=== PATIENT | female | born 1980 | race Caucasian/White ===

== ENCOUNTER 2018-07-06 16:23 | Emergency (ER) | payer MEDICAID, SELFPAY ==
[2018-07-06 16:33] VITALS: BP 142/89; PULSE 87; RESP 16; TEMP 36.8; O2SAT 97
--- NOTE | 2018-07-06 17:43 | W.ED.GENAD ---
Discharge Plan Disposition Patient Disposition: HOME Condition: Good Discharge Details Chief Complaint: EyeProblem Clinical Impression: Hordeolum externum of right upper eyelid Primary Care Provider: America Enrique ED Provider: Chris Driver Home Meds and New Rx's Prescriptions: Continue folic acid 1 MG tablet 1 mg PO DAILY RF: 0 lamotrigine 150 MG tablet 200 mg PO .QAM RF: 0 topiramate 100 MG tablet 100 mg PO DAILY RF: 0 quetiapine [Seroquel XR] 300 MG tablet extended release 24 hr 600 mg PO HS RF: 0 albuterol sulfate 8.5 GM HFA aerosol inhaler 2 puff Inhalation Q4H PRN Qty: 1 RF: 0 fluticasone [Flovent HFA] 120 PUFF HFA aerosol inhaler 2 puff Inhalation BID RF: 0 biotin 5 MG capsule 1 cap PO DAILY RF: 0 cholecalciferol (vitamin D3) 5,000 UNIT tablet 1 tab PO DAILY RF: 0 loratadine 10 MG tablet 10 mg PO DAILY RF: 0 omeprazole magnesium [Prilosec OTC] 20 MG tablet,delayed release (DR/EC) 20 mg PO DAILY PRNRF: 0 acetaminophen [Mapap Extra Strength] 500 MG tablet 2 tab-cap PO RF: 0 lamotrigine [Lamictal] 100 MG tablet 100 mg PO HS RF: 0 Qt-Z3-urx-wwai-knx-bqhf-bor 1 EACH tablet 1 ea PO DAILY RF: 0 qaxiwgmh-eid-okrd-FA-lutein [Centrum Silver Women] 1 EACH tablet 1 ea PO DAILY RF: 0 Discharge Instructions Instructions: Shaylee (ED) Additional Instructions: Feel free to return to the emergency department for any new or worsening symptoms otherwise apply warm compresses 4-6 times a day and she may use Visine eyedrops to see if this helps with any irritation to the eye. If not improving over the next week please follow-up with ophthalmology. Referrals: [facility] [Outside] - 1 week (if not improving) Discharge Data Discharge Date/Time-TO BE ENTERED AT DEPARTURE: 07/06/18 18:14 Medical Decision Making Patient presenting to the emergency department for discomfort of the right eye. Patient states this morning she started having some redness, swelling, and discomfort and was concerned for possible conjunctivitis due to people she has been around having similar symptoms. Physical exam shows a erythematous right upper eyelid with slight lateral pustule otherwise conjunctival, sclera, and remaining portion of the eye exam is unremarkable. Given more localized findings to the right upper lid with external pustule and concern for stye which patient states that she has a history of. Patient was encouraged to use warm compresses and use Visine eyedrops for any itching or irritation to the eye and to follow-up with ophthalmology if not improving over the next 1-2 weeks. After discussion of diagnosis and plan of care patient is no further needs, questions, or concerns and states clear understanding to return to the emergency department for any worsening symptoms. HPI General Date/Time Provider Initiated Documentation: 07/06/18 16:50. Limitations to Documentation: no limitations. Information obtained by: patient and RN notes reviewed. History of Present Illness 38 year old F presents to the emergency department with the chief complaint of right eye pain, described as moderate, Quality is described as burning (itching), and is localized to the eyes and right. Patient reports no radiation. Patient started experiencing this day(s) (1) and it has been constant. No relieving factors improve symptom(s), No exacerbating factors reported . Patient notes no other symptoms.. Patient did receive the following treatments prior to arrival, none Related Data Home Medications Medication Instructions Recorded Confirmed quetiapine [Seroquel XR] 600 mg PO HS 10/15/13 07/06/18 topiramate 100 mg PO DAILY 10/15/13 07/06/18 albuterol sulfate 2 puff INHALATION Q4H PRN #1 07/09/14 07/06/18 [email or web address] biotin 1 cap PO DAILY 04/27/15 07/06/18 cholecalciferol (vitamin D3) 1 tab PO DAILY 04/27/15 07/06/18 fluticasone [Flovent HFA] 2 puff INHALATION BID 04/27/15 07/06/18 loratadine 10 mg PO DAILY 04/27/15 07/06/18 omeprazole magnesium [Prilosec OTC] 20 mg PO DAILY PRN 04/27/15 07/06/18 acetaminophen [Mapap Extra 2 tab-cap PO 11/17/15 11/17/15 Strength] Gl-J9-tes-nhox-pgs-fpfz-bor 1 ea PO DAILY 03/03/18 03/04/18 folic acid 1 mg PO DAILY tab-cap 03/03/18 07/06/18 lamotrigine 200 mg PO .QAM tab-cap 03/03/18 07/06/18 lamotrigine [Lamictal] 100 mg PO HS 03/03/18 07/06/18 swzxkvfa-zeb-bdtw-FA-lutein 1 ea PO DAILY 03/03/18 07/06/18 [Centrum Silver Women] Previous Rx's Medication Instructions Recorded albuterol sulfate 2 puff INHALATION Q4H PRN #1 07/09/14 [email or web address] Allergies Allergy/AdvReac Type Severity Reaction Status Date / Time Penicillins Allergy Severe Anaphylaxsis, Unverified 07/06/18 16:37 throat tightness divalproex sodium Allergy Intermediate Unverified 07/06/18 16:37 [From Depakote] latex Allergy Unverified 07/06/18 16:37 aspirin AdvReac Severe increases Unverified 07/06/18 16:37 toxicity combined w/ lithium ibuprofen AdvReac Severe increases Unverified 07/06/18 16:37 toxicity combined w/ lithium General Stated Complaint: EyeProblem DENNIS: 4 Review of Systems Constitutional Denies chills, Denies fever(s) and Denies headache(s) Eyes Reports as per HPI, Denies blurry vision, Denies change in vision, Reports eye discharge, Reports itchy eyes, Reports loss of vision and Denies photophobia ENT Denies headache(s), Reports nasal congestion, Denies nasal discharge and Reports sore throat Respiratory Denies cough and Denies wheezing Neurologic Denies headache(s), Denies focal weakness, Reports loss of vision and Denies other visual disturbances Allergic/Immunologic Reports itchy eyes and Denies wheezing PFSH Social History Smoking/Tobacco Use Status: Former Tobacco Use Exam Const General: cooperative, comfortable and no acute distress Orientation: alert, awake and oriented x3 HENMT Head: normal to inspection, normocephalic and atraumatic Ears: hearing grossly normal bilaterally, external ears normal and TM's normal bilaterally General nose exam: external nose normal Face and sinus: normal facial exam Mouth: oral mucosae normal Throat: posterior oropharynx normal Eyes Eyelids: eyelid abnormality right upper eyelid erythema, swelling and tenderness Conjunctivae: conjunctivae normal Sclera: sclerae normal Cornea: corneas normal Pupils: PERRL and normal by confrontation Eyes/upper lids images: 1. Area of redness and mild erythema Resp Effort & Inspection: normal respiratory effort, able to speak in complete sentences and no audible wheezes Neuro General: alert, awake, oriented x3, gait normal, tone normal, moves all extremities and no focal motor deficits Course Vital Signs Temperature 36.8 C 07/06/18 16:33 Pulse 87 07/06/18 16:33 Respiratory Rate 16 07/06/18 16:33 Blood Pressure 142/89 H 07/06/18 16:33 Pulse Oximetry 97 07/06/18 16:33 Temperature 36.8 C 07/06/18 16:33 Temperature Source Skin 07/06/18 16:33 Pulse 87 07/06/18 16:33 Respiratory Rate 16 07/06/18 16:33 Respiratory Effort Non-Labored 07/06/18 16:35 Blood Pressure 142/89 H 07/06/18 16:33 Pulse Oximetry 97 07/06/18 16:33 Pain Level 5 07/06/18 16:33
== END 2018-07-06 18:14 | disposition home or self-care (01) ==
PROVIDERS: Emergency Provider Nurse Practitioner Family; PCP Nurse Practitioner Family
DX: H00.11 Chalazion right upper eyelid (principal)
CPT/HCPCS: 99282

== ENCOUNTER 2019-05-20 14:11 | Outpatient (REF) | payer MEDICAID, SELFPAY ==
[2019-05-20 18:59] LABS: HCT 39.4 % (36.0-46.0); HGB 13.2 g/dL (12.0-15.5); Mean Corp. HGB Concentration 33.5 g/dL (32.0-36.0); Mean Corpuscular Hemoglobin 29.3 pg (27.0-33.0); Mean Corpuscular Volume 87.4 fL (80-95); Mean Platelet Volume 10.4 fL (8.0-11.0); Platelet Count 316 x1000/uL (130-400); RBC 4.51 m/cumm (4.00-5.20); RBC Distribution Width 13.3 % (11.7-14.6)
[2019-05-20 19:36] LABS: Ferritin 306 ng/mL (8-388); Vitamin B12 592 pg/mL (193-986)
[2019-05-20 20:36] LABS: ESR 25 mm/hr (0-20)
[2019-05-23 08:14] LABS: Vitamin D 25 Total 31.9 ng/ml (30-100)
== END 2019-05-20 14:31 ==
LOC: NCHCN 14:11
PROVIDERS: PCP Nurse Practitioner Family; Visit Provider Nurse Practitioner Family
DX: R42 Dizziness and giddiness (principal); R51 Headache; G47.61 Periodic limb movement disorder; F31.9 Bipolar disorder, unspecified
CPT/HCPCS: 82306; 85027; 85652; 82607; 82728

== ENCOUNTER 2019-07-22 13:43 | Outpatient (REF) | payer MEDICAID, SELFPAY ==
--- NOTE | 2019-07-22 13:30 | PAPFT_PTH ---
PATIENT: Janet Fontaine [facility] U#:[id number] AGE/SX: 39/F ROOM: RE07/22/[address]: Iván Youngblood : 1980 BED: DIS: 07/22/2019 SPEC #: [id number] RECD: 07/22/19 17:50 STATUS: ELIAS REQ #: [id number] HEMA: 07/22/19 13:[address]: Iván Youngblood DEPT: [facility], [facility] Cytology RECD BY: Rachel Galan Tissues: 1 - CX/ENDOCX FOR PAP SMEARS Procedures: PAP THIN PREP/UVM Screening HPV DNA PROBE Comments: [id number]
[2019-07-22 18:37] LABS: HCT 39.3 % (36.0-46.0); HGB 13.1 g/dL (12.0-15.5); Mean Corp. HGB Concentration 33.3 g/dL (32.0-36.0); Mean Corpuscular Hemoglobin 29.2 pg (27.0-33.0); Mean Corpuscular Volume 87.7 fL (80-95); Mean Platelet Volume 10.5 fL (8.0-11.0); Platelet Count 349 x1000/uL (130-400); RBC 4.48 m/cumm (4.00-5.20); RBC Distribution Width 13.2 % (11.7-14.6); White Blood Cell Count 10.01 k/cumm (4.4-10.8)
[2019-07-22 19:01] LABS: ALT 25 U/L (14-59); AST 16 U/L (15-37); Albumin 4.2 g/dL (3.4-5.0); Alkaline Phosphatase 66 U/L (46-116); Anion Gap 13.6 mmol/L (3-11); BUN 12 mg/dL (7-18); Bilirubin, Total 0.3 mg/dL (0.2-1.0); CO2 24.4 mmol/L (21.0-32.0); CREATININE 0.86 mg/dL (0.55-1.02); Calcium 9.1 mg/dL (8.5-10.1); Chloride 104 mmol/L (98-107); Glucose 92 mg/dL (70-100); Potassium 4.1 mmol/L (3.5-5.1); Sodium 142 mmol/L (136-145); Total Protein 7.5 g/dL (6.4-8.2)
[2019-07-25 11:36] LABS: Hepatitis C Ab w Rflx HCV PCR Negative (NEGAT)
[2019-07-25 12:33] LABS: Hepatitis B Surface Ag Negative (NEGAT)
[2019-07-25 12:39] LABS: HBs Antibody, Quant 931.9 mIU/mL; Hepatitis B Surface Ab Positive
[2019-07-25 12:48] LABS: HIV-1/2 Ag & Ab Screen Negative (NEGAT)
[2019-07-25 13:18] LABS: Syphilis Serology (RPR) Negative (Negative)
[2019-07-26 07:15] LABS: Chlamydia Result Negative; GC Result Negative
== END 2019-07-22 14:03 ==
LOC: NCHCN 13:43
PROVIDERS: PCP Nurse Practitioner Family; Visit Provider Nurse Practitioner Family
DX: Z20.2 Contact with and (suspected) exposure to infections with a predominantly sexual mode of transmission (principal); Z11.59 Encounter for screening for other viral diseases; Z11.4 Encounter for screening for human immunodeficiency virus [HIV]; Z11.3 Encounter for screening for infections with a predominantly sexual mode of transmission; Z12.4 Encounter for screening for malignant neoplasm of cervix
CPT/HCPCS: 80053; 85027; 86706; 86803; 87340; 87389; 87491; 87591; 88142; 86592; 87624

== ENCOUNTER 2020-01-06 11:20 | Outpatient (REF) | payer MEDICAID, SELFPAY ==
[2020-01-06 18:05] LABS: PTT Activated 26.7 sec (21.0-31.4); Prothrombin Time 10.2 sec (9.3-11.0)
[2020-01-06 18:17] LABS: ALT 33 U/L (14-59); AST 26 U/L (15-37); Albumin 3.9 g/dL (3.4-5.0); Alkaline Phosphatase 51 U/L (46-116); Anion Gap 9.5 mmol/L (3-11); BUN 14 mg/dL (7-18); Bilirubin, Total 0.3 mg/dL (0.2-1.0); CO2 27.5 mmol/L (21.0-32.0); CREATININE 0.84 mg/dL (0.55-1.02); Calcium 9.2 mg/dL (8.5-10.1); Chloride 105 mmol/L (98-107); Glucose 81 mg/dL (74-106); Potassium 4.4 mmol/L (3.5-5.1); Sodium 142 mmol/L (136-145); TSH (W/Ref FT4) 1.95 uIU/mL (0.36-3.74); Total Protein 6.9 g/dL (6.4-8.2)
[2020-01-06 18:39] LABS: D-Dimer 1698 ng/mlFEU (<500)
[2020-01-06 18:42] LABS: PROTEIN 8.3 mg/dL
[2020-01-06 18:43] LABS: Prot/Crea Ur Ratio 0.15
[2020-01-06 18:44] LABS: COMMENT (LAB VIEW ONLY) 52.79 mg/dL; Microalb ug/mg Crea 18.2 ug/mg Cr
== END 2020-01-06 11:40 ==
LOC: NCHCN 11:20
PROVIDERS: PCP Nurse Practitioner Family; Visit Provider Nurse Practitioner Family
DX: R60.9 Edema, unspecified (principal)
CPT/HCPCS: 80053; 82043; 82565; 82570; 84156; 84443; 85379; 85610; 85730

== ENCOUNTER 2020-01-06 19:54 | Emergency (ER) | payer MEDICAID, SELFPAY ==
[2020-01-06 19:59] VITALS: BP 157/95; PULSE 101; RESP 16; TEMP 37.1
--- NOTE | 2020-01-06 20:12 | ED.GENADUL_ITS ---
Discharge Plan Disposition Patient Disposition: HOME Condition: Stable Discharge Details Chief Complaint: GenMedical Clinical Impression: Leg pain Primary Care Provider: Iván Youngblood ED Provider: Rafy Alvarado Home Meds and New Rx's Prescriptions: Continued folic acid 1 MG tablet 1 mg PO DAILY RF: 0 topiramate 100 MG tablet 100 mg PO DAILY RF: 0 quetiapine [Seroquel XR] 300 MG tablet extended release 24 hr 600 mg PO HS RF: 0 albuterol sulfate 8.5 GM HFA aerosol inhaler 2 puff Inhalation Q4H PRN Qty: 1 RF: 0 fluticasone propionate [Flovent HFA] 120 PUFF HFA aerosol inhaler 2 puff Inhalation BID RF: 0 biotin 5 MG capsule 1 cap PO DAILY RF: 0 cholecalciferol (vitamin D3) 5,000 UNIT tablet 1 tab PO DAILY RF: 0 loratadine 10 MG tablet 10 mg PO DAILY RF: 0 omeprazole magnesium [Prilosec OTC] 20 MG tablet,delayed release (DR/EC) 20 mg PO DAILY PRNRF: 0 acetaminophen [Mapap Extra Strength] 500 MG tablet 2 tab-cap PO RF: 0 Vt-C8-ncg-eney-orf-ogqk-bor 1 EACH tablet 1 ea PO DAILY RF: 0 hxxiyqnw-fwp-vfsq-FA-lutein [Centrum Silver Women] 1 EACH tablet 1 ea PO DAILY RF: 0 Discharge Instructions Additional Instructions: your d dimer was elevated so you are empirically being treated for a blood clot in your legs follow up with your primary care provider Thursday to discuss if you need to continue lovenox. if you have significant shortness of breath or severe chest pain return to the emergency department Medical Decision Making 39 yo female comes in with bilateral leg pain. She saw her pcp today for pain in both calfs and had labs ordered and her d dimer was over 1500. They could not arrange for an u/s in time before they left for the weekend and no pharmacy had the proper dosing of her lovenox and she has too high of a weight to be safely on noacs so was sent here for initial lovenox. She has pain in both calfs without redness, mild swelling of the ankles with full rom. Denies any chest pain or shortness of breath to suggest PE. Will give initial dose of lovenox here and arrange for her to have dose tomorrow and Thursday in infusion room and will also have her f/u with u/s on Thursday and pcp. Return precautions given Differential Diagnosis Differential Diagnosis: dvt, lymphedema HPI General Mode of arrival: ambulatory . Date/Time Provider Initiated Documentation: 01/06/20 20:03 . Limitations to Documentation: no limitations . Information obtained by: patient . History of Present Illness 39 year old F presents to the emergency department with the chief complaint of leg pain, described as moderate, Quality is described as aching, and it has been constant. No relieving factors improve symptom(s), No exacerbating factors reported . Patient did receive the following treatments prior to arrival, none Related Data Home Medications Medication Instructions Recorded Confirmed quetiapine [Seroquel XR] 600 mg PO HS 10/15/13 07/06/18 topiramate 100 mg PO DAILY 10/15/13 07/06/18 albuterol sulfate 2 puff INHALATION Q4H PRN #1 07/09/14 07/06/18 [email or web address] biotin 1 cap PO DAILY 04/27/15 07/06/18 cholecalciferol (vitamin D3) 1 tab PO DAILY 04/27/15 07/06/18 fluticasone propionate [Flovent 2 puff INHALATION BID 04/27/15 07/06/18 HFA] loratadine 10 mg PO DAILY 04/27/15 07/06/18 omeprazole magnesium [Prilosec OTC] 20 mg PO DAILY PRN 04/27/15 07/06/18 acetaminophen [Mapap Extra 2 tab-cap PO 11/17/15 11/17/15 Strength] Kw-B6-wgx-ryso-aly-wfxw-bor 1 ea PO DAILY 03/03/18 03/04/18 folic acid 1 mg PO DAILY tab-cap 03/03/18 07/06/18 rjrfqktz-lzj-ufbw-FA-lutein 1 ea PO DAILY 03/03/18 07/06/18 [Centrum Silver Women] Previous Rx's Medication Instructions Recorded albuterol sulfate 2 puff INHALATION Q4H PRN #1 07/09/14 [email or web address] Allergies Allergy/AdvReac Type Severity Reaction Status Date / Time Penicillins Allergy Severe Anaphylaxsis, Unverified 01/06/20 20:03 throat tightness divalproex sodium Allergy Intermediate Unverified 01/06/20 20:03 [From Depakote] latex Allergy Unverified 01/06/20 20:03 aspirin AdvReac Severe increases Unverified 01/06/20 20:03 toxicity combined w/ lithium ibuprofen AdvReac Severe increases Unverified 01/06/20 20:03 toxicity combined w/ lithium General Stated Complaint: GenMedical DENNIS: 4 Review of Systems All systems reviewed & are unremarkable except as noted in HPI and below Constitutional Constitutional: Denies chills, Denies fever(s) and Denies weakness Cardiovascular Cardiovascular: Denies chest pain and Denies dyspnea Respiratory Respiratory: Denies cough and Denies dyspnea Gastrointestinal Gastrointestinal: Denies abdominal pain, Denies nausea and Denies vomiting Musculoskeletal Musculoskeletal: Denies joint swelling Neurologic Neurologic: Denies weakness Psychiatric Psychiatric: Denies depression [facility] Social History Smoking/Tobacco Use Status: Former Tobacco Use Drug use: Never Do you feel safe in your relationship?: Yes Exam Const General: no acute distress Orientation: alert HENMT Head: normal to inspection Ears: external ears normal General nose exam: external nose normal Mouth: moist mucous membranes Eyes General: appearance normal, both eyes and all related structures Neck Neck: normal visual inspection Resp Effort & Inspection: normal respiratory effort and able to speak in complete sentences Cardio Rate: regular rate Skin General skin exam: no rashes or lesions noted Neuro General: patient alert and patient oriented x3 Extrem General: full ROM and capillary refill normal Psych Mental Status: mental status grossly normal Course Vital Signs Vital signs: Vital Signs Temperature 37.1 C 01/06/20 19:59 Pulse 101 H 01/06/20 19:59 Respiratory Rate 16 01/06/20 19:59 Blood Pressure 157/95 H 01/06/20 19:59 Temperature 37.1 C 01/06/20 19:59 Temperature Source Temporal Artery Scan 01/06/20 19:59 Pulse 101 H 01/06/20 19:59 Respiratory Rate 16 01/06/20 19:59 Blood Pressure 157/95 H 01/06/20 19:59 Blood Pressure Position Supine 01/06/20 19:59 Oxygen Delivery Method Room Air 01/06/20 19:59 Oxygen Flow Rate 0 01/06/20 19:59
[2020-01-06] MEDS: Enoxaparin 60 MG/0.6 ML SYR SC (20:30)
== END 2020-01-06 20:41 | disposition home or self-care (01) ==
PROVIDERS: Emergency Provider Emergency Medicine; PCP Nurse Practitioner Family
DX: M79.604 Pain in right leg (principal); M79.605 Pain in left leg; R79.1 Abnormal coagulation profile
CPT/HCPCS: 96372; 99284; J1650

== ENCOUNTER 2020-01-07 18:01 | Outpatient (RCR) | payer MEDICAID, SELFPAY ==
[2020-01-07] MEDS: Enoxaparin 40 MG/0.4 ML SYR SC (18:38)
== END 2020-01-10 23:59 | disposition home or self-care (01) ==
LOC: NCHCN 18:01
PROVIDERS: PCP Nurse Practitioner Family; Visit Provider Nurse Practitioner Family
DX: R69 Illness, unspecified (principal)
CPT/HCPCS: 96372; J1650

== ENCOUNTER 2020-01-08 07:36 | Outpatient (RCR) | payer MEDICAID, SELFPAY ==
[2020-01-07] MEDS: Enoxaparin 40 MG/0.4 ML SYR SC (18:05)
[2020-01-08] MEDS: Enoxaparin 100 MG/ML SYR 190 MG SC (18:02)
== END 2020-01-10 23:59 | disposition home or self-care (01) ==
LOC: INF 07:36
PROVIDERS: PCP Nurse Practitioner Family; Visit Provider Emergency Medicine
DX: R79.1 Abnormal coagulation profile (principal); M79.604 Pain in right leg; M79.605 Pain in left leg
CPT/HCPCS: 96372; J1650

== ENCOUNTER 2020-01-09 09:03 | Outpatient (CLI) | payer MEDICAID, SELFPAY ==
--- NOTE | 2020-01-09 | DI.US_ITS ---
EXAM: US EXTREMITY VENOUS BI CLINICAL HISTORY: LEG PAIN, ELEVATED D DIMER. TECHNIQUE: Bilateral lower extremity venous ultrasound performed using grayscale, color-flow, and sp ectral Doppler analysis. COMPARISON: No exams were available for comparison FINDINGS: The bilateral common femoral, femoral and popliteal veins demonstrate normal compressibility, augment ation, and color Doppler. The posterior tibial veins are patent. No superficial venous thrombosis or Garcia's cyst is seen. IMPRESSION: Right: Negative for DVT Left: Negative for DVT DATA REPOSITORY:
== END 2020-01-09 09:23 ==
PROVIDERS: PCP Nurse Practitioner Family; Visit Provider Emergency Medicine
DX: M79.604 Pain in right leg (principal); M79.605 Pain in left leg
CPT/HCPCS: 93970

== ENCOUNTER 2020-07-09 17:25 | Emergency (ER) | payer MEDICAID, SELFPAY ==
[2020-07-09 17:43] VITALS: BP 146/100; PULSE 97; RESP 16; TEMP 36.5; O2SAT 97
--- NOTE | 2020-07-09 18:45 | RT.EKG_ITS ---
APPROVED REPORT Exam: Resting ECG Patient Location: E HR:82 bpm ECG Measurements Heart Rate 82 AXIS TX 159 P 48 QRSd 85 QRS 10 QT 376 T 17 QTc 439 Conclusion Sinus rhythm...normal P axis, V-rate 60- 99
--- NOTE | 2020-07-09 18:45 | DI.CT_ITS ---
EXAM: CT BRAIN NECK CTA CLINICAL HISTORY: dizziness, pain, ?dissection. TECHNIQUE: Imaging Protocol: Axial CT angiography was performed with multi-slice acquisition and mu lti-planar and/or 3D reconstructions. CONTRAST MATERIAL: Intravenous: Omnipaque 350 Contrast volume:85 ml COMPARISON: No exams were available for comparison FINDINGS: CT Head W/O: Ventricles and Extra axial spaces: Normal in size and morphology for the patient's age. Hemorrhage: None. Cerebral parenchyma: Normal. Midline shift: None. Brainstem/Cerebellum: Normal. Calvarium: Normal. Visualized Paranasal sinuses/Mastoids: Clear. Soft Tissues: Unremarkable. CTA Brain W: Internal Carotid Arteries: Petrous: Normal. Cavernous: Normal. Cerebral: Normal. Middle Cerebral Arteries: Right: No aneurysm, occlusion or significant stenosis. Left: No aneurysm, occlusion or significant stenosis. Anterior Cerebral Arteries: Right: No aneurysm, occlusion or significant stenosis. Left: No aneurysm, occlusion or significant stenosis. Posterior cerebral Arteries: Right: No aneurysm, occlusion or significant stenosis. Left: No aneurysm, occlusion or significant stenosis. Vertebral Arteries: Right: No aneurysm, occlusion or significant stenosis. Left: No aneurysm, occlusion or significant stenosis. Basilar Artery: No aneurysm, occlusion or significant stenosis. CTA Neck W: Common Carotid: Right: No aneurysm, occlusion or significant stenosis. Left: No aneurysm, occlusion or significant stenosis. External Carotid: Right: No aneurysm, occlusion or significant stenosis. Left: No aneurysm, occlusion or significant stenosis. Internal Carotid: Right: No aneurysm, occlusion or significant stenosis. Left: No aneurysm, occlusion or significant stenosis. Vertebral Artery: Right: No aneurysm, occlusion or significant stenosis. Left: No aneurysm, occlusion or significant stenosis. Lung Apices: Normal. Bones: Normal. Soft Tissues: Normal. IMPRESSION: 1. Normal CTA examination of the [place]. 2. Unremarkable noncontrast CT Head. 3. Normal CTA examination of the neck. RADIATION DOSE DELIVERED: 1,220.19mGy.cm Total DLP DATA REPOSITORY: All CT scans at this facility are submitted to the National Radiology Data Registry (NRDR) Dose Index Registry (DIR) with the [employer] (A[employer]). RADIATION OPTIMIZATION: All CT scans at this facility use at least one of these dose optimization te chniques: automated exposure control; mA and/or kV adjustment per patient size (includes targeted exa ms where dose is matched to clinical indication); or iterative reconstruction.
--- NOTE | 2020-07-09 18:52 | ED.GENADUL_ITS ---
Discharge Plan Disposition Patient Disposition: HOME Condition: Stable Discharge Details Clinical Impression: Otitis externa of right ear, Vertigo Primary Care Provider: Iván Youngblood ED Provider: Rafy Alvarado Home Meds and New Rx's Prescriptions: New scopolamine base 1 mg over 3 days patch 3 day 1 patch transdermal Q72H PRN (Reason: nausea and vomiting) Qty: 24 RF: 0 lorazepam 1 mg tablet 1 mg PO TID PRNQty: 30 RF: 0 ofloxacin 0.3 % drops 10 drp otic (ear) Q12H 7 Days Qty: 5 RF: 0 No Action folic acid 1 MG tablet 1 mg PO DAILY RF: 0 topiramate 100 MG tablet 100 mg PO DAILY RF: 0 quetiapine [Seroquel XR] 300 MG tablet extended release 24 hr 600 mg PO HS RF: 0 albuterol sulfate 8.5 GM HFA aerosol inhaler 2 puff Inhalation Q4H PRN Qty: 1 RF: 0 Flovent HFA 120 PUFF HFA aerosol inhaler 2 puff Inhalation BID RF: 0 biotin 5 MG capsule 1 cap PO DAILY RF: 0 cholecalciferol (vitamin D3) 5,000 UNIT tablet 1 tab PO DAILY RF: 0 loratadine 10 MG tablet 10 mg PO DAILY RF: 0 omeprazole magnesium [Prilosec OTC] 20 MG tablet,delayed release (DR/EC) 20 mg PO DAILY PRNRF: 0 acetaminophen [Mapap Extra Strength] 500 MG tablet 2 tab-cap PO RF: 0 [id number]-yutg-txh-qtin-bor 1 EACH tablet 1 ea PO DAILY RF: 0 Centrum Silver Women 1 EACH tablet 1 ea PO DAILY RF: 0 benztropine 2 mg tablet 2 mg PO DAILY RF: 0 Discharge Instructions Instructions: Otitis Externa (ED), Vertigo (ED) Additional Instructions: follow up with your primary care provider within 1 week if you take the meclizine and 2 hours later still feel significant dizziness take 1 ativan (lorazepam), do not drink alcohol or drive if you take this if you feel more ill, have worsening symptoms or persistent vomit return to the emergency department Medical Decision Making 40 yo female with hx of vertigo and has been on meclizine chronically and seen PT as well comes in with no relief from the meclizine for 3 days and constatn feeling of the rooms is spinning and worsens with head movement. No falls, no fevers.HAs a wooshing sound for a day in both ears but right greater than left and feels some swelling in the right jaw area. Has no palpable or visible swelling on exam, full rom of the mouth, normal oropharynx, no pain in the hyoid and full rom of the neck. Her tm's are normal as are external ears and mastoids, her right external auditory canal is red and bulging so could have otitis externa as a cause of her symptoms but given the wooshing sensation feel a cta to evaluate for dissection is warranted. She has stable gait, reassuring HINTS and no focal motor or sensation deficits so doubt central cva. No dyspnea, chest pain or pressure and no lightheadedness so doubt arrythmia, acs, pe. labs show no significant abnormality, mild leukocytosis to 13 but no infectious symptoms to suggest parachute taper infection and no swelling on exam still. Imaging unremarkable and she feels better with normal gait.Will d/c on abx drops and scopolamine patch and advised f/u with pcp and return precautions given Differential Diagnosis Differential Diagnosis: otitis externa, dissection, labrynthitis Imaging Data Radiologic Study: Attestation: I personally reviewed and interpreted this imaging study as follows: Imaging: CT Scan Radiologist's impression: no acute findings on imaging Lab Data Lab results reviewed: Yes I reviewed the patient's lab results. ECG Data Attestation: I personally reviewed and interpreted this ECG (s) as follows: Prior ECG tracings: not available for review Interpretation: sinus rhythm, rate 82, pr 159, no acute st t wave ischemic findings HPI General Mode of arrival: ambulatory . Date/Time Provider Initiated Documentation: 07/09/20 18:31 . Limitations to Documentation: no limitations . Information obtained by: patient . History of Present Illness 40 year old F presents to the emergency department with the chief complaint of dizziness, described as moderate, and it has been constant. No relieving factors improve symptom(s), No exacerbating factors reported . Patient did receive the following treatments prior to arrival, none Related Data Home Medications Medication Instructions Recorded Confirmed quetiapine [Seroquel XR] 600 mg PO HS 10/15/13 07/09/20 topiramate 100 mg PO DAILY 10/15/13 07/09/20 albuterol sulfate 2 puff INHALATION Q4H PRN #1 07/09/14 07/09/20 [email or web address] Flovent HFA 2 puff INHALATION BID 04/27/15 07/09/20 biotin 1 cap PO DAILY 04/27/15 07/09/20 cholecalciferol (vitamin D3) 1 tab PO DAILY 04/27/15 07/09/20 loratadine 10 mg PO DAILY 04/27/15 07/09/20 omeprazole magnesium [Prilosec OTC] 20 mg PO DAILY PRN 04/27/15 07/09/20 acetaminophen [Mapap Extra 2 tab-cap PO 11/17/15 11/17/15 Strength] [id number]-qkxc-bor 1 ea PO DAILY 03/03/18 07/09/20 Centrum Silver Women 1 ea PO DAILY 03/03/18 07/09/20 folic acid 1 mg PO DAILY tab-cap 03/03/18 07/09/20 benztropine 2 mg PO DAILY 07/09/20 07/09/20 lorazepam 1 mg PO TID PRN #30 tab 07/09/20 ofloxacin 10 drp OTIC (EAR) Q12H 7 Days #5 ml 07/09/20 scopolamine base 1 patch TRANSDERMAL Q72H PRN #24 ea 07/09/20 Previous Rx's Medication Instructions Recorded albuterol sulfate 2 puff INHALATION Q4H PRN #1 07/09/14 [email or web address] lorazepam 1 mg PO TID PRN #30 tab 07/09/20 ofloxacin 10 drp OTIC (EAR) Q12H 7 Days #5 ml 07/09/20 scopolamine base 1 patch TRANSDERMAL Q72H PRN #24 ea 07/09/20 Allergies Allergy/AdvReac Type Severity Reaction Status Date / Time Penicillins Allergy Severe Anaphylaxsis, Unverified 07/09/20 17:47 throat tightness divalproex sodium Allergy Intermediate Unverified 07/09/20 17:47 [From Depakote] latex Allergy Unverified 07/09/20 17:47 aspirin AdvReac Severe increases Unverified 07/09/20 17:47 toxicity combined w/ lithium ibuprofen AdvReac Severe increases Unverified 07/09/20 17:47 toxicity combined w/ lithium General Stated Complaint: Dizzy/Sync DENNIS: 3 Review of Systems All systems reviewed & are unremarkable except as noted in HPI and below Constitutional Constitutional: Denies chills, Denies fever(s) and Denies weakness Cardiovascular Cardiovascular: Denies chest pain and Denies dyspnea Respiratory Respiratory: Denies cough and Denies dyspnea Gastrointestinal Gastrointestinal: Denies abdominal pain, Denies nausea and Denies vomiting Musculoskeletal Musculoskeletal: Denies joint swelling Neurologic Neurologic: Denies weakness Psychiatric Psychiatric: Denies depression REPLACED BY [facility] Social History Smoking/Tobacco Use Status: Former Tobacco Use Alcohol Intake: never Drug use: Occasionally Substance use type: marijuana Do you feel safe in your relationship?: Yes Exam Const General: no acute distress Orientation: alert HENMT Head: normal to inspection Ears: external ears normal General nose exam: external nose normal Mouth: moist mucous membranes Eyes General: appearance normal, both eyes and all related structures Neck Neck: normal visual inspection Resp Effort & Inspection: normal respiratory effort and able to speak in complete sentences Cardio Rate: regular rate Skin General skin exam: no rashes or lesions noted Neuro General: patient alert and patient oriented x3 Extrem General: normal to inspection Psych Mental Status: mental status grossly normal Course Vital Signs Vital signs: Vital Signs Temperature 36.5 C 07/09/20 17:43 Pulse 97 H 07/09/20 17:43 Respiratory Rate 16 07/09/20 17:43 Blood Pressure 146/100 H 07/09/20 17:43 Pulse Oximetry 97 07/09/20 17:43 Temperature 36.5 C 07/09/20 17:43 Temperature Source Skin 07/09/20 17:43 Pulse 97 H 07/09/20 17:43 Respiratory Rate 16 07/09/20 17:43 Respiratory Effort Non-Labored 07/09/20 18:22 Respiratory Depth Normal 07/09/20 18:22 Respiratory Pattern Normal 07/09/20 18:22 Blood Pressure 146/100 H 07/09/20 17:43 Blood Pressure Position Sitting 07/09/20 17:43 Pulse Oximetry 97 07/09/20 17:43 Oxygen Delivery Method Room Air 07/09/20 17:43 Oxygen Flow Rate 0 07/09/20 17:43 Pain Level 6 07/09/20 17:43
[2020-07-09] MEDS: LORazepam 2 MG/ML VIAL 1 MG IVP (19:15)
[2020-07-09 19:19] LABS: Abs Immature Grans 0.06 10^3/uL (0.0-0.06); Absolute Basophil Count 0.13 10^3/uL (0.0-0.2); Absolute Lymphocyte Count 3.11 10^3/uL (1.2-3.4); Absolute Monocyte Count 0.94 10^3/uL (0.1-0.8); Eosinophils % 4.6; HCT 40.7 % (36.0-46.0); HGB 13.4 g/dL (11.2-15.7); Immature Grans % 0.5; Lymphocytes % 23.6; MCHC 32.9 % (32.0-36.0); MCV 88.1 fL (80-95); Monocytes % 7.1; Neutrophils % 63.2; Nucleated RBC 0 %; Platelet Count 346 10^3/uL (130-400); RBC 4.62 10^6/uL (3.93-5.22); RDW 12.8 % (11.7-14.6); RDW-SD 41.1 fL; WBC 13.18 10^3/uL (4.4-10.8)
[2020-07-09 19:21] LABS: Absolute Eosinophil Count 0.61 10^3/uL (0.0-0.7); Absolute Neutrophil Count 8.33 10^3/uL (1.2-6.7)
[2020-07-09] MEDS: Scopolamine 1 MG/3 DAYS PATCH TD (19:22)
[2020-07-09 19:31] VITALS: BP 117/80; PULSE 85; RESP 16; TEMP 36.7; O2SAT 96
[2020-07-09 19:32] LABS: ALT 27 U/L (14-59); AST 16 U/L (15-37); Albumin 4.2 g/dL (3.4-5.0); Alkaline Phosphatase 59 U/L (46-116); Anion Gap 10.4 mmol/L (3-11); BUN 15 mg/dL (7-18); Bilirubin, Total 0.4 mg/dL (0.2-1.0); CO2 24.6 mmol/L (21.0-32.0); CREATININE 1.03 mg/dL (0.55-1.02); Calcium 9.8 mg/dL (8.5-10.1); Chloride 102 mmol/L (98-107); Estimated GFR 59.97 (mL/min/1.73m2); Glucose 88 mg/dL (74-106); Magnesium 1.9 mg/dL (1.8-2.4); Potassium 3.8 mmol/L (3.5-5.1); Sodium 137 mmol/L (136-145); Total Protein 7.9 g/dL (6.4-8.2)
[2020-07-09 19:33] LABS: INR 1.1 (0.9-1.1); PTT Activated 26.7 sec (21.0-31.4); Prothrombin Time 10.6 sec (9.3-11.0)
--- NOTE | 2020-07-09 20:02 | DI.VRAD_ITS ---
PROCEDURE INFORMATION: Exam: CT Angiography Head With Contrast Exam date and time: 07/09/2020 7:38 PM Age: 40 years old Clinical indication: Dizziness and giddiness, pain, ?dissection; Dizziness for a few weeks with swooshing sound in ear after bending over, today right-sided jaw pain, tightness ,and swelling behind ear and in head. TECHNIQUE: Imaging protocol: Computed tomography angiography of the head with intravenous contrast. 3D rendering (Not supervised by radiologist): MIP and/or 3D reconstructed images were created by the technologist. Radiation optimization: All CT scans at this facility use at least one of these dose optimization techniques: automated exposure control; mA and/or kV adjustment per patient size (includes targeted exams where dose is matched to clinical indication); or iterative reconstruction. Contrast material: OMNIPAQUE 350; Contrast volume: 85 ml; Contrast route: INTRAVENOUS (IV); COMPARISON: No relevant prior studies available. FINDINGS: ANTERIOR CIRCULATION: Right internal carotid artery: Unremarkable. Intracranial segment is patent with no significant stenosis. No aneurysm. Right middle cerebral artery: Unremarkable. No occlusion or significant stenosis. No aneurysm. Right anterior cerebral artery: Unremarkable. No occlusion or significant stenosis. No aneurysm. Left internal carotid artery: Unremarkable. Intracranial segment is patent with no significant stenosis. No aneurysm. Left middle cerebral artery: Unremarkable. No occlusion or significant stenosis. No aneurysm. Left anterior cerebral artery: Unremarkable. No occlusion or significant stenosis. No aneurysm. POSTERIOR CIRCULATION: Right vertebral artery: Unremarkable. No occlusion or significant stenosis. No aneurysm. Left vertebral artery: Unremarkable. No occlusion or significant stenosis. No aneurysm. Basilar artery: Unremarkable. No occlusion or significant stenosis. No aneurysm. Right posterior cerebral artery: Unremarkable. No occlusion or significant stenosis. No aneurysm. Left posterior cerebral artery: Unremarkable. No occlusion or significant stenosis. No aneurysm. Brain: No definite mass, mass effect, or midline shift. Cerebral ventricles: Normal. No ventriculomegaly. Bones/joints: Unremarkable. No acute fracture. Soft tissues: Unremarkable. IMPRESSION: 1. No acute intracranial findings on initial unenhanced images. 2. CTA head within normal limits. No arterial dissection. No large vessel occlusion. PROCEDURE INFORMATION: Exam: CT Angiography Neck With Contrast Exam date and time: 07/09/2020 7:38 PM Age: 40 years old Clinical indication: Dizziness and giddiness, pain, ?dissection; Dizziness for a few weeks with swooshing sound in ear after bending over, today right-sided jaw pain, tightness ,and swelling behind ear and in head. TECHNIQUE: Imaging protocol: Computed tomography angiography of the neck with intravenous contrast. 3D rendering (Not supervised by radiologist): MIP and/or 3D reconstructed images were created by the technologist. Radiation optimization: All CT scans at this facility use at least one of these dose optimization techniques: automated exposure control; mA and/or kV adjustment per patient size (includes targeted exams where dose is matched to clinical indication); or iterative reconstruction. Contrast material: OMNIPAQUE 350; Contrast volume: 85 ml; Contrast route: INTRAVENOUS (IV); COMPARISON: No relevant prior studies available. FINDINGS: Right common carotid artery: No stenosis. No dissection or occlusion. Right internal carotid artery: No stenosis of the extracranial segment. No dissection or occlusion. Right external carotid artery: No occlusion or stenosis of the origin. Right vertebral artery: No stenosis. No dissection or occlusion. Non-dominant right vertebral artery Left common carotid artery: No stenosis. No dissection or occlusion. Left internal carotid artery: No stenosis of the extracranial segment. No dissection or occlusion. Left external carotid artery: No occlusion or stenosis of the origin. Left vertebral artery: No stenosis. No dissection or occlusion. Dominant left vertebral artery. Bones/joints: No acute fracture. Soft tissues: Normal. No significant soft tissue swelling. IMPRESSION: CTA neck within normal limits. No arterial dissection, arterial occlusion, or arterial stenosis. REFERENCES: NASCET CRITERIA. The degree of internal carotid artery stenosis is based on NASCET criteria. Normal is no stenosis. Mild is less than 50% stenosis. Moderate is 50-69% stenosis. Severe is 70% to 99% stenosis. Total occlusion is no detectable patent lumen. Dictated and Authenticated by: Phillip Veras MD. Ordering:JAMES Hillman MD
--- NOTE | 2020-07-09 20:10 | NUR.NOTE ---
Nursing Note: Patient reports that the room is no longer spinning, does still have some nausea and dizziness. Dr Alvarado updated. Awaiting CT results.
[2020-07-09 20:45] VITALS: BP 134/86; PULSE 97; RESP 16; O2SAT 98
== END 2020-07-09 20:50 | disposition home or self-care (01) ==
PROVIDERS: Emergency Provider Emergency Medicine; PCP Nurse Practitioner Family
DX: H60.391 Other infective otitis externa, right ear (principal); R42 Dizziness and giddiness; R11.0 Nausea
CPT/HCPCS: 36415; 70496; 70498; 80053; 93005; 96374; 99285; 83735; 85025; 85610; 85730; 93010; 99284; J2060

== ENCOUNTER 2021-01-28 14:59 | Outpatient (CLI) | payer MEDICAID, SELFPAY ==
--- NOTE | 2021-01-28 14:43 | DI.RAD_ITS ---
EXAM: XR WRIST RT COMPLETE CLINICAL HISTORY: cyst. TECHNIQUE: 2D digital imaging was performed. COMPARISON: CR LEFT THUMB from 01/06/2018 FINDINGS: There is no evidence fracture nor carpal dislocation. There is negative ulnar variance, approximatel y 4 millimeters. Scapholunate distance is normal. Bone density and carpal row bones is normal. No abnormal soft tissue calcifications. No ominous osseous lesions. IMPRESSION: DATA REPOSITORY: RADIATION DOSE DELIVERED:
== END 2021-01-28 15:00 | disposition home or self-care (01) ==
LOC: DIORS 15:00
PROVIDERS: PCP Nurse Practitioner Family; Referring Provider Nurse Practitioner Family; Visit Provider Physician Assistant Surgical
DX: M67.431 Ganglion, right wrist (principal)
CPT/HCPCS: 73110

== ENCOUNTER 2021-02-15 04:42 | Outpatient (CLI) | payer MEDICAID, SELFPAY ==
--- NOTE | 2021-02-15 09:15 | DI.MRI_ITS ---
Exam(s) MR UPPER JOINT RT WO EXAM: MR UPPER JOINT RT WO CLINICAL HISTORY: PAIN, GANGLION CYST VOLAR ASPECT RT WRIST,M67.431 TECHNIQUE: Multiplanar multisequence MRI of the right wrist was performed. COMPARISON: CR XR WRIST RT COMPLETE from 01/28/2021 FINDINGS: MARROW:There is no evidence of fracture, bone contusion, nor avascular necrosis. No ominous osseous lesions. ARTICULATIONS: There are no erosions. There is an effusion in the radiocarpal joint and this is cont inuous with a lobulated volar ganglion cyst at this level which measures approximately 1.6 cm wide by 1.4 cm volar to the joint by 1.2 cm long to 2D normal. This extends between the flexor carpi radial is and flexor pollicis longus. This is external-lateral to the carpal tunnel. There is no abnormal signal in the carpal tunnel. There is a smaller amount of fluid on the opposite-medial aspect of the wrist adjacent to the ulnar s tyloid. Interposed between the ulnar styloid and triquetrum bone. There is mild negative ulnar vari ance. There is no abnormal fluid in the radioulnar joint. No significant degenerative changes at the 1st carpometacarpal joint. TENDONS: No evidence of tendon tears nor tenosynovitis. The above described ganglia on is medial to the abductor pollicis longus and extensor pollicis brevis tendons. CARPAL TUNNEL: No abnormal signal within the contents of the carpal tunnel including the flexor digit orum profundus and superficialis tendons and median nerve. IMPRESSION: 1. The main finding here is a lobulated ganglion cyst on the volar lateral aspect of the wrist measur ing approximately 16 x 14 x 12 millimeters, appearing to originate from the radiocarpal joint and ins inuating between the flexor carpi radialis and flexor pollicis longus tendons. 2. Is no evidence of fracture, bone contusion, nor avascular necrosis. DATA REPOSITORY:
== END 2021-02-15 05:02 ==
PROVIDERS: PCP Physician Assistant; Visit Provider Student in an Organized Health Care Education/Training Program
DX: M25.531 Pain in right wrist (principal); M67.431 Ganglion, right wrist
CPT/HCPCS: 73221

== ENCOUNTER 2021-05-04 20:20 | Emergency (ER) | payer MEDICAID, SELFPAY ==
[2021-05-04 20:27] VITALS: BP 123/86; PULSE 80; RESP 19; O2SAT 98
--- NOTE | 2021-05-04 20:30 | DI.RAD_ITS ---
Exam(s) XR FINGER LT INDEX EXAM: XR FINGER LT INDEX EXAM DATE/TIME: CLINICAL HISTORY: pain left index finger,sledgehammer. TECHNIQUE: 2D digital imaging was performed. COMPARISON: None. FINDINGS: BONES: No acute fracture is present. No bony destructive lesion is seen. JOINTS: No dislocation is present. SOFT TISSUE: Mild soft tissue swelling. No radiopaque foreign bodies. IMPRESSION: No evidence of acute fracture or dislocation. DATA REPOSITORY: RADIATION DOSE DELIVERED:
--- NOTE | 2021-05-04 20:51 | ED.GENADUL_ITS ---
Discharge Plan Disposition Patient Disposition: HOME Condition: Good Discharge Details Clinical Impression: Contusion of left index finger Primary Care Provider: Kalin Ramon ED Provider: Rachel Anguiano Home Meds and New Rx's Prescriptions: Continued montelukast 10 mg tablet 10 mg PO DAILY RF: 0 folic acid 1 MG tablet 1 mg PO DAILY RF: 0 quetiapine [Seroquel XR] 300 MG tablet extended release 24 hr 600 mg PO HS RF: 0 topiramate 100 mg tablet 100 mg PO BID RF: 0 albuterol sulfate 8.5 GM HFA aerosol inhaler 2 puff Inhalation Q4H PRN Qty: 1 RF: 0 Flovent HFA 120 PUFF HFA aerosol inhaler 2 puff Inhalation BID RF: 0 biotin 5 MG capsule 1 cap PO DAILY RF: 0 cholecalciferol (vitamin D3) 5,000 UNIT tablet 1 tab PO DAILY RF: 0 loratadine 10 MG tablet 10 mg PO DAILY RF: 0 omeprazole magnesium [Prilosec OTC] 20 MG tablet,delayed release (DR/EC) 20 mg PO DAILY PRNRF: 0 acetaminophen [Mapap Extra Strength] 500 MG tablet 2 tab-cap PO RF: 0 [id number]-[id number]-tuez-hvr-qmtb-bor 1 EACH tablet 1 ea PO DAILY RF: 0 Centrum Silver Women 1 EACH tablet 1 ea PO DAILY RF: 0 benztropine 2 mg tablet 2 mg PO DAILY RF: 0 scopolamine base 1 mg over 3 days patch 3 day 1 patch transdermal Q72H PRN (Reason: nausea and vomiting) Qty: 24 RF: 0 lorazepam 1 mg tablet 1 mg PO TID PRNQty: 30 RF: 0 Discharge Instructions Instructions: Contusion in Adults (ED) Additional Instructions: Repeat x-ray in 1 week if persistent pain There is no evidence of fracture on your x-ray Ibuprofen and Tylenol for pain control Stand Alone Forms: Work Release Discharge Data Discharge Date/Time-TO BE ENTERED AT DEPARTURE: 05/04/21 21:50 Medical Decision Making No evidence of fracture noted on x-ray per my review and radiology interpretation, patient instructed to use affected digit as tolerated Ibuprofen and Tylenol as needed for discomfort Repeat x-ray in 1 week with persistent pain Return precautions discussed and patient expressed understanding HPI General Mode of arrival: ambulatory . Date/Time Provider Initiated Documentation: 05/04/21 20:41 . Limitations to Documentation: no limitations . Information obtained by: patient . HPI Narrative: This 41-year-old female presents with injury to left second digit. States she was minding diamonds and accidentally hit her finger with a sledgehammer. This was 2 days ago. Denies chance of . Pain exacerbated with movement. Denies any sensation change. Otherwise reportedly healthy. Related Data Home Medications Medication Instructions Recorded Confirmed quetiapine [Seroquel XR] 600 mg PO HS 10/15/13 05/04/21 albuterol sulfate 2 puff INHALATION Q4H PRN #1 07/09/14 05/04/21 [email or web address] Flovent HFA 2 puff INHALATION BID 04/27/15 05/04/21 biotin 1 cap PO DAILY 04/27/15 05/04/21 cholecalciferol (vitamin D3) 1 tab PO DAILY 04/27/15 05/04/21 loratadine 10 mg PO DAILY 04/27/15 05/04/21 omeprazole magnesium [Prilosec OTC] 20 mg PO DAILY PRN 04/27/15 05/04/21 acetaminophen [Mapap Extra 2 tab-cap PO 11/17/15 11/17/15 Strength] [id number]-[id number]-ods-heal-bor 1 ea PO DAILY 03/03/18 07/09/20 Centrum Silver Women 1 ea PO DAILY 03/03/18 05/04/21 folic acid 1 mg PO DAILY tab-cap 03/03/18 05/04/21 benztropine 2 mg PO DAILY 07/09/20 05/04/21 lorazepam 1 mg PO TID PRN #30 tab 07/09/20 05/04/21 scopolamine base 1 patch TRANSDERMAL Q72H PRN #24 ea 07/09/20 05/04/21 montelukast 10 mg tablet 10 mg PO DAILY 01/28/21 05/04/21 topiramate 100 mg tablet 100 mg PO BID tab 01/28/21 05/04/21 Previous Rx's Medication Instructions Recorded albuterol sulfate 2 puff INHALATION Q4H PRN #1 07/09/14 [email or web address].ad lorazepam 1 mg PO TID PRN #30 tab 07/09/20 scopolamine base 1 patch TRANSDERMAL Q72H PRN #24 ea 07/09/20 Allergies Allergy/AdvReac Type Severity Reaction Status Date / Time Penicillins Allergy Severe Anaphylaxsis, Unverified 05/04/21 20:30 throat tightness divalproex sodium Allergy Intermediate Unverified 05/04/21 20:30 [From Depakote] latex Allergy Unverified 05/04/21 20:30 aspirin AdvReac Severe increases Unverified 05/04/21 20:30 toxicity combined w/ lithium ibuprofen AdvReac Severe increases Unverified 05/04/21 20:30 toxicity combined w/ lithium General Stated Complaint: Orthopedic DENNIS: 4 Review of Systems Narrative: Review of systems obtained x3 and negative aside from indication in HPI [facility] Social History Smoking/Tobacco Use Status: Former Tobacco Use Smoking risk assessment performed?: Yes Alcohol Intake: never Drug use: Occasionally Substance use type: marijuana Do you feel safe in your relationship?: Yes Exam Const General: no acute distress Extrem Other: Left second digit with bruising noted at proximal phalanx, mild tenderness to MCP and PIP joint, neurovascularly intact, no tenderness to wrist Course Vital Signs Vital signs: Vital Signs Pulse 80 05/04/21 20:27 Respiratory Rate 19 05/04/21 20:27 Blood Pressure 123/86 05/04/21 20:27 Pulse Oximetry 98 05/04/21 20:27 Pulse 80 05/04/21 20:27 Respiratory Rate 19 05/04/21 20:27 Blood Pressure 123/86 05/04/21 20:27 Blood Pressure Position Sitting 05/04/21 20:27 Pulse Oximetry 98 05/04/21 20:27 Oxygen Delivery Method Room Air 05/04/21 20:27 Oxygen Flow Rate 0 05/04/21 20:27
--- NOTE | 2021-05-04 21:40 | DI.VRAD_ITS ---
PROCEDURE INFORMATION: Exam: XR Left Finger(s) Exam date and time: 05/04/2021 8:42 PM Age: 41 years old Clinical indication: Injury or trauma; Other: Pain left index finger, sledgehammer; Blunt trauma (contusions or hematomas) TECHNIQUE: Imaging protocol: XR Left fingers. Views: Minimum 2 views. COMPARISON: CR LEFT THUMB 01/06/2018 10:39 AM FINDINGS: Bones/joints: No evidence of fracture. Negative for dislocation. Negative for focal bony lesion. Soft tissues: Soft tissue swelling noted. No evidence of foreign body. IMPRESSION: No acute osseous abnormality. Dictated and Authenticated by: Rafy Mccormick MD. Ordering:LATOSHA Ramos MD
== END 2021-05-04 21:50 | disposition home or self-care (01) ==
PROVIDERS: Emergency Provider Physician Assistant; PCP Physician Assistant
DX: S60.022A Contusion of left index finger without damage to nail, initial encounter (principal); W27.0XXA Contact with workbench tool, initial encounter
CPT/HCPCS: 99283; 73140

== ENCOUNTER 2021-05-14 06:14 | Day surgery (SDC) | payer MEDICAID, SELFPAY ==
[2021-05-14 06:20] VITALS: BP 108/72; PULSE 89; RESP 16; TEMP 36.5; O2SAT 98
--- NOTE | 2021-05-14 06:25 | ANES.PREOP_ITS ---
General Info Date of Service Date Performed: 05/14/21 Height: 5 ft 6 in Weight: 116.573 kg Body Mass Index (BMI): 41.4 Surgical Procedure: Operation Date: 05/14/21 07:40 Proposed Procedures Side Surgeon p Wrist Ganglion Cyst Excision Right Gt Castro MD Meds Allergies and Home Medications Allergies Allergy/AdvReac Type Severity Reaction Status Date / Time Penicillins Allergy Severe Anaphylaxsis, Verified 05/14/21 06:34 throat tightness divalproex sodium Allergy Intermediate Verified 05/14/21 06:34 [From Depakote] latex Allergy Verified 05/14/21 06:34 aspirin AdvReac Severe increases Verified 05/14/21 06:34 toxicity combined w/ lithium ibuprofen AdvReac Severe increases Verified 05/14/21 06:34 toxicity combined w/ lithium Home Medication Medication Instructions Recorded quetiapine [Seroquel XR] 600 mg PO HS 10/15/13 albuterol sulfate 2 puff INHALATION Q4H PRN #1 07/09/14 hfa.[email or web address] Flovent HFA 2 puff INHALATION BID 04/27/15 biotin 1 cap PO DAILY 04/27/15 cholecalciferol (vitamin D3) 1 tab PO DAILY 04/27/15 loratadine 10 mg PO DAILY 04/27/15 omeprazole magnesium [Prilosec OTC] 20 mg PO DAILY PRN 04/27/15 acetaminophen [Mapap Extra 2 tab-cap PO DAILY 11/17/15 Strength] [id number]-[id number]-ximm-vze-ntnj-bor 1 ea PO DAILY 03/03/18 Centrum Silver Women 1 ea PO DAILY 03/03/18 folic acid 1 mg PO DAILY tab-cap 03/03/18 benztropine 2 mg PO DAILY 07/09/20 lorazepam 1 mg PO TID PRN #30 tab 07/09/20 scopolamine base 1 patch TRANSDERMAL Q72H PRN #24 ea 07/09/20 montelukast 10 mg tablet 10 mg PO DAILY 01/28/21 topiramate 100 mg tablet 100 mg PO BID tab 01/28/21 Current Visit Medications: Current Medications Generic Name Dose Route Start Last Admin Trade Name Freq PRN Reason Stop Dose Admin Ringer's Solution 1,000 mls @ 80 mls/hr 05/14/21 06:00 IV 06/12/21 23:59 INFUSION MARIA L Clindamycin Phosphate/Dextrose 900 mg in 50 mls @ 50 mls/hr 05/14/21 06:00 Cleocin In D5w IVPB 05/14/21 18:00 PREOP MARIA L IV Miscellaneous Supplies 1 each 05/14/21 06:00 Iv Access IV 06/12/21 23:59 DIRECTED MARIA L Sodium Chloride 0 ml 05/14/21 06:00 Normal Saline Flush 10 Ml Syr IV 06/12/21 23:59 PRN PRN Sodium Chloride 0 ml 05/14/21 06:00 Normal Saline 10 Ml Vial IJ 06/12/21 23:59 DIRECTED PRN Sterile Water 0 ml 05/14/21 06:00 Water,Injection,Sterile 10 Ml Vial IJ 06/12/21 23:59 DIRECTED PRN PFSH Active Problems Active Problems: Problem Status Onset Code Ganglion cyst of volar aspect of right wrist M67.431 Contusion of left index finger S60.022A Medical History Medical History Asthma Environmental allergies Surgical History Surgical History Hx of tubal ligation Tobacco Smoking/Tobacco Use Status: Former Tobacco Use Alcohol Alcohol Intake: never Substance Use Substance use: Occasionally Substance use type: marijuana Vital Signs and Lab Results Lab Results Blood Type / Crossmatch: No Data to Display Complete Blood Count: No Data to Display Complete Metabolic Panel: No Data to Display Liver Function Panel: No Data to Display Coagulation Panel: No Data to Display Cardiac Panel: No Data to Display Arterial Blood Gas: No Data to Display Venous Blood Gas: No Data to Display Pancreas Panel: No Data to Display Thyroid Panel: No Data to Display Infectious Disease: No Data to Display Blood Cultures: No Data to Display Toxicology Panel: No Data to Display Panel: No Data to Display Imaging and Studies Imaging and Studies EKG Summary: 06/2020: normal sinus, normal P axis. CT Summary: CTA 06/2020 head/neck: normal CTA of [place] [facility] [place], normal head CT, normal neck CTA. Pulmonary Function Summary: 2015: mild obstructive airway dz with sig bronchodilator response. Anesthesia Assessment and Plan Anesthesia History Personal History: No History of Anesthesia Complications Family History: No Family History of Anesthesia Complications Exercise Tolerance Exercise Tolerance: Metabolic Equivalents>4 Cardiac & Pulmonary Exam Cardiac Exam: Normal S1/S2 Heart Sounds Pulmonary Exam: Clear Bilateral Breath Sounds Airway Exam Known Difficult Airway: No Mallampati Class: 1 Mouth Opening: Normal (> 3cm) Thyromental Distance: Greater than 3 cm Neck Range of Motion: Full ROM Neck Circumference: Thick Teeth Condition: Normal Dentition ASA Classification ASA Score: ASA 2 Emergency Case?: No NPO Status NPO Status: NPO Clears >2 hours, Solids >8 hours Status Status: Negative HCG Anesthesia Plan Resuscitation Status: Full Code Anesthesia Technique: MAC Anesthesia Airway Planned: Natural Airway Monitors Used: Standard Monitors Preoperative Comments:: Previous Mac 3 grade 1, easy mask.
[2021-05-14 07:03] VITALS: BMI 41.4
[2021-05-14] MEDS: Lactated Ringers 1,000 ML 80 ML IV (07:03)
--- NOTE | 2021-05-14 07:07 | W.ANESPOSTOP ---
Postoperative Evaluation Date, Time and Location Date Performed: 05/14/21 Time Performed: 09:11 Patient Location: Day Surgery Unit Vital Signs Most Recent Imported Vital Signs: Most Recent Vital Signs Temp Pulse Resp BP Pulse Ox 36.5 C 89 16 108/72 98 05/14/21 06:20 05/14/21 06:20 05/14/21 06:20 05/14/21 06:20 05/14/21 06:20 Most Recent Manually Entered Vital Signs: Adult Blood Pressure: 125/80 Heart Rate: 85 Respirations: 16 Oxygen Saturation (%): 96 Temperature (C): 36.7 C Pain Score (0-10 Scale): 3 Pain Score Most Recent Pain Score: Most Recent Pain Score Pain Level 0 05/14/21 06:20 Assessment Mental Status: Awake (Alert & Oriented to Patient Baseline) Airway and Respiratory Function: Patent airway with normal (patient baseline) respiratory exam Cardiovascular Function: Hemodynamically Stable Hydration Status: Adequately Hydrated Nausea & Vomiting: No Nausea or Vomiting Pain: Pt. Denies Any Pain Peripheral Nerve Block: Patient did not receive a nerve block
--- NOTE | 2021-05-14 07:19 | PDOC.DSDIS_ITS ---
Discharge Plan Disposition Patient Disposition: HOME Condition: Good Discharge Details Reason For Visit: Right Volar Wrist Ganglion Cyst Attending Provider: Gt Castro Primary Care Provider: Kalin Ramon Home Meds and New Rx's Prescriptions: New acetaminophen 500 mg tablet 500 mg PO Q6H PRN PRN (Reason: pain) Qty: 60 RF: 3 hydrocodone-acetaminophen 5-325 mg tablet 1 tab PO Q6H PRN (Reason: pain) Qty: 6 RF: 0 Continued montelukast 10 mg tablet 10 mg PO DAILY RF: 0 folic acid 1 MG tablet 1 mg PO DAILY RF: 0 quetiapine [Seroquel XR] 300 MG tablet extended release 24 hr 600 mg PO HS RF: 0 topiramate 100 mg tablet 100 mg PO BID RF: 0 albuterol sulfate 8.5 GM HFA aerosol inhaler 2 puff Inhalation Q4H PRN Qty: 1 RF: 0 Flovent HFA 120 PUFF HFA aerosol inhaler 2 puff Inhalation BID RF: 0 biotin 5 MG capsule 1 cap PO DAILY RF: 0 cholecalciferol (vitamin D3) 5,000 UNIT tablet 1 tab PO DAILY RF: 0 loratadine 10 MG tablet 10 mg PO DAILY RF: 0 omeprazole magnesium [Prilosec OTC] 20 MG tablet,delayed release (DR/EC) 20 mg PO DAILY PRNRF: 0 [id number]-[id number]-[id number]-ehjl-zwk-ufun-bor 1 EACH tablet 1 ea PO DAILY RF: 0 Centrum Silver Women 1 EACH tablet 1 ea PO DAILY RF: 0 benztropine 2 mg tablet 2 mg PO DAILY RF: 0 scopolamine base 1 mg over 3 days patch 3 day 1 patch transdermal Q72H PRN (Reason: nausea and vomiting) Qty: 24 RF: 0 lorazepam 1 mg tablet 1 mg PO TID PRNQty: 30 RF: 0 Discontinued acetaminophen [Mapap Extra Strength] 500 MG tablet 2 tab-cap PO DAILY RF: 0 Discharge Instructions Additional Instructions: Wrist Discharge Instructions Activity: You should keep the hand/wrist elevated as much as possible for the first few days. You may use the other fingers as tolerated but avoid trying to do too much too soon. You may perform light activities with the splint in place. Dressing/Cast: Your splint should stay in place at all times. Do NOT get it wet. You may loosen the JOHN wrap if you feel it is too tight and then rewrap more loosely. Medications: - You should take Tylenol for baseline pain control. - You have been prescribed a stronger pain medication, Hydrocodone, for breakthrough pain. - You may apply ice over the wrist, just double bag so it doesn't get wet. Follow-up: 10-14 days Referrals: Gt Castro MD [ [facility] STAFF PHYSICIAN] - Equipment/Supplies: Splint and Sling Activity:: Elevate Remove Dressings/Wound Care:: Do Not Remove Shower/Bathe:: Cover Diet:: As Tolerated Discharge Orders Discharge Orders: Discharge Order (Routine); Ordered 05/14/21 Ordered By: Gt Castro DS: Diagnosis Discharge Diagnosis (1) Ganglion cyst of volar aspect of right wrist: Status: Acute
[2021-05-14] MEDS: CLINDAMYCIN 900 MG/50 ML BAG 50 MG IVPB (07:28)
[2021-05-14] MEDS: Sodium Bicarbonate 50 MEQ/50 ML VIAL (07:48)
[2021-05-14 08:11] VITALS: BP 105/73; PULSE 81; RESP 16; TEMP 36.5; O2SAT 98
[2021-05-14] MEDS: HYDROcodone 5/Acetaminophen 325 TAB PO (08:37)
[2021-05-14 08:39] VITALS: BP 125/80; PULSE 85; RESP 16; TEMP 36.7; O2SAT 96
[2021-05-14 09:12] VITALS: BP 125/80; PULSE 85; RESP 16; TEMPC 36.7; O2SAT 96
[2021-05-14 09:45] VITALS: BP 118/68; PULSE 77; RESP 16; TEMP 36.5; O2SAT 98
--- NOTE | 2021-05-14 12:29 | W.PM.OP ---
Date of service: 05/14/21 Time of Service: 08:01 Operative Note Operative Note DATE OF PROCEDURE: 05/14/21 PRE-OP DIAGNOSIS: Right Recurrent Volar Wrist Ganglion Cyst POST-OP DIAGNOSIS: same PROCEDURE: Excision of volar wrist ganglion cyst - Right wrist SURGEON: Gt Castro ANESTHESIA TYPE: General:No Airway Refer to Anesthesia Record ESTIMATED BLOOD LOSS: 5 PATHOLOGY: none sent TOURNIQUET TIME: 8 COMPLICATIONS: None Patient was transported to: PACU Patient's condition: stable Indications: Janet is a 41 year old who I have seen for a recurrent volar wrist ganglion cyst. It has continued to be bothersome despite some conservative options. Its size and interference with activities continues to cause problems. Therefore, I offered excision of the volar wrist cyst. I discussed the risks to include bleeding, infection, pain, stiffness, damage to nerve and vessels, recurrence. Despite these risks, she elects to proceed. Findings: There was a ganglion cyst arising from volar wrist and lateral to the FCR tendon. The cyst was removed and the origin from the wrist was debrided and opened. Procedure Description: Janet was greeted in the preoperative holding area. Identity was confirmed and the correct site was identified and marked. Consent was reviewed the patient and signed. History and physical was updated. The patient to take not to the operating room placed in supine position. All bony prominences were well-padded. A nonsterile tourniquet was placed high up onto the right arm. The arms and prepped with ChloraPrep and draped in a standard fashion. The surgical site was marked on the skin and injected with 1% lidocaine with epinephrine buffered with sodium bicarbonate. The limb was exsanguinated and the tourniquet was inflated to 250 mmHg where it stayed for 8 minutes. The skin was incised sharply. Deeper dissection was carried out with tenotomy scissors and careful attention to vascular branches in this area. The mass was identified and protected with dissection carried around. Once was fully identified it was deflated and the cyst stalk was followed down to the carpus. The cyst structure was resected and its origin from the carpus was opened with tenotomy scissors and rongeur. The wound was then thoroughly irrigated. The tourniquet was deflated. There is no major arterial bleeding in any other persistent ooze was cauterized with the bipolar electrocautery. The wound was dry. The deep layer was reapproximated with a 3-0 Vicryl. The skin was closed with a running 4-0 Monocryl followed by skin glue, gauze, and Ash wrap. The wrist was placed into a removable wrist brace. At the end the case all counts were correct. The patient was awakened from anesthesia and taken to the PACU in stable condition. There were no noted complications.
== END 2021-05-14 09:55 | disposition home or self-care (01) ==
PROVIDERS: PCP Physician Assistant; Visit Provider Student in an Organized Health Care Education/Training Program
PROC: (CPT 25112; principal; 2021-05-14 07:30)
DX: M67.431 Ganglion, right wrist (principal)
CPT/HCPCS: 25112; J2001; L3908

== ENCOUNTER 2022-09-18 12:07 | Outpatient (REF) | payer MEDICAID, SELFPAY ==
[2022-09-18 18:11] LABS: Abs Immature Grans 0.07 10^3/uL (0.0-0.06); Absolute Basophil Count 0.14 10^3/uL (0.0-0.2); Absolute Eosinophil Count 0.66 10^3/uL (0.0-0.7); Absolute Monocyte Count 0.92 10^3/uL (0.1-0.8); Eosinophils % 4.6; HCT 39.5 % (36.0-46.0); Immature Grans % 0.5; Lymphocytes % 18.3; MCH 28.3 pg (27.0-33.0); MCHC 32.9 % (32.0-36.0); MCV 86 fL (80-95); MPV 9.6 fL (8.0-11.0); Monocytes % 6.4; Neutrophils % 69.2; Platelet Count 394 10^3/uL (130-400); RBC 4.59 10^6/uL (3.93-5.22); RDW 13.1 % (11.7-14.6); RDW-SD 41.1 fL; WBC 14.35 10^3/uL (4.4-10.8)
[2022-09-18 18:12] LABS: Absolute Lymphocyte Count 2.63 10^3/uL (1.2-3.4); Absolute Neutrophil Count 9.93 10^3/uL (1.2-6.7)
[2022-09-18 18:23] LABS: ALT 26 U/L (14-59); AST 22 U/L (15-37); Albumin 4.2 g/dL (3.4-5.0); Alkaline Phosphatase 71 U/L (46-116); Anion Gap 11.9 mmol/L (3-11); BUN 17 mg/dL (7-18); Bilirubin, Total 0.2 mg/dL (0.2-1.0); CO2 24.1 mmol/L (21.0-32.0); Calcium 9.5 mg/dL (8.5-10.1); Chloride 105 mmol/L (98-107); Estimated GFR 73.04 (mL/min/1.73m2); Glucose 84 mg/dL (74-106); Potassium 4.4 mmol/L (3.5-5.1); Sodium 141 mmol/L (136-145); Total Protein 7.8 g/dL (6.4-8.2)
== END 2022-09-18 12:08 | disposition home or self-care (01) ==
LOC: NCHCN 12:07
PROVIDERS: PCP Physician Assistant; Visit Provider Nurse Practitioner Family
DX: R10.31 Right lower quadrant pain (principal); R31.9 Hematuria, unspecified; R30.0 Dysuria
CPT/HCPCS: 80053; 85025; 87086

== ENCOUNTER 2022-12-06 12:43 | Emergency (ER) | payer MEDICAID, SELFPAY ==
[2022-12-06] VITALS (19 sets, daily range): BP systolic 113–155; BP diastolic 63–87; PULSE 61–85; RESP 7–23; O2SAT 95–100
--- NOTE | 2022-12-06 12:45 | RT.EKG_ITS ---
APPROVED REPORT Exam: Resting ECG Reason for Exam: Left shoulder pain through side Patient Location: E HR:70 bpm ECG Measurements Heart Rate 70 AXIS MN 131 P 18 QRSd 88 QRS -1 QT 414 T 23 QTc 446 Conclusion Sinus rhythm Anterior infarct, old...Q >40mS, abnormal ST-T, V2-V5
--- NOTE | 2022-12-06 13:00 | DI.RAD_ITS ---
Exam(s) XR CHEST 2V PA LATERAL EXAM: XR CHEST 2V PA LATERAL CLINICAL HISTORY: L chest discomfort TECHNIQUE: 2D digital imaging was performed of the chest. Two images were obtained. PA and lateral views were obtained. COMPARISON: No exams were available for comparison FINDINGS: MEDIASTINUM: Normal. HEART: Normal. PULMONARY VASCULATURE: Normal. LUNGS: Clear. PLEURAL SPACE: No pleural effusion or pneumothorax. BONE:Within normal limits for the patient's age. OTHER FINDINGS:Normal. IMPRESSION: No acute pulmonary findings. DATA REPOSITORY: RADIATION DOSE DELIVERED:
--- NOTE | 2022-12-06 13:13 | ED.GENADUL_ITS ---
Discharge Plan Disposition Patient Disposition: Home Condition: Improving Discharge Details Clinical Impression: Strain of chest wall Primary Care Provider: Kalin Ramon ED Provider: Fletcher Vidal Home Meds and New Rx's Prescriptions: Continued montelukast 10 mg tablet 10 mg PO DAILY folic acid 1 MG tablet 1 mg PO DAILY quetiapine [Seroquel XR] 300 MG tablet extended release 24 hr 600 mg PO HS Patient Comments: 01.06.18 pt states she is taking 800mg @[facility].HE topiramate 100 mg tablet 100 mg PO BID albuterol sulfate 8.5 GM HFA aerosol inhaler 2 puff Inhalation Q4H PRN Qty: 1 0RF Flovent HFA 120 PUFF HFA aerosol inhaler 2 puff Inhalation BID biotin 5 MG capsule 1 cap PO DAILY cholecalciferol (vitamin D3) 5,000 UNIT tablet 1 tab PO DAILY loratadine 10 MG tablet 10 mg PO DAILY omeprazole magnesium [Prilosec OTC] 20 MG tablet,delayed release (DR/EC) 20 mg PO DAILY PRN acetaminophen 500 mg tablet 500 mg PO Q6H PRN PRN (Reason: pain) Qty: 60 3RF Centrum Silver Women 1 EACH tablet 1 ea PO DAILY benztropine 2 mg tablet 2 mg PO DAILY Patient Comments: TAKE ONE TABLET BY MOUTH EVERY EVENING scopolamine base 1 mg over 3 days patch 3 day 1 patch transdermal Q72H PRN (Reason: nausea and vomiting) Qty: 24 0RF lorazepam 1 mg tablet 1 mg PO TID PRNQty: 30 0RF hydroxyzine HCl 50 mg tablet 50 mg PO DAILY Patient Comments: TAKE ONE TO THREE TABLETS BY MOUTH AT BEDTIME budesonide-formoterol [Symbicort] 160-4.5 mcg/actuation HFA aerosol inhaler 2 puff INHALATION Patient Comments: INHALE ONE PUFF BY MOUTH TWICE A DAY - RINSE MOUTH AFTER USING lurasidone [Latuda] 80 mg tablet 80 mg PO DAILY Patient Comments: TAKE ONE TABLET BY MOUTH EVERY DAY WITH FOOD (AT LEAST 350 CALORIES) Discharge Instructions Instructions: Muscle Strain (ED) Additional Instructions: May apply warm compress to area to reduce discomfort. Tylenol and/or ibuprofen as needed for pain. Next dose of ibuprofen would be in 6 hours. Your work-up today including cardiac troponin, CT scan of the chest and screening laboratories was unremarkable. Your magnesium was slightly low and may be supplemented by increased dark leafy greens such as spinach & kale, avocados or cashews in your diet. Return to the emergency department for any acute concerns. Medical Decision Making 16-year-old female presents from home. She states that she has had a number of 4 rounds of COVID infection, most recently 2 weeks ago. Is had cough congestion associated with it. She now has 1 day of achy left shoulder pain. She will note that she works at a store requires physical movement but did not notice strain at work. She has not had a rash and denies persistent fever. She has had an ongoing cough and mild congestion. Vital signs are unremarkable. Patient is well-appearing, she does have some reproducible muscular pain on exam. Differential diagnosis is broad but would include bronchitis, pneumonitis, she has triple discomfort, ACS or PE. Patient had screening laboratories obtained in addition to EKG and chest x-ray. Chest x-ray is unremarkable. Laboratories reveal normal troponin, white blood cell count of 12, reassuring basic chemistries and slight hypomagnesemia of 1.7. Noted is elevated D-dimer of 1121. Therefore, patient referred for CT of the chest. CAT scan does not show any acute findings. No evidence of pulmonary emboli. Discussed findings with patient. She is stable for discharge to home and improving. Most consistent with muscular strain. She understands indications to seek reevaluation. HPI General Mode of arrival: ambulatory . Date/Time Provider Initiated Documentation: 12/06/22 12:53 . Limitations to Documentation: no limitations . Information obtained by: patient . History of Present Illness 42 year old F presents to the emergency department with the chief complaint of Left arm discomfort/ache in shoulder, described as mild, Quality is described as dull and constant, and is localized to the left and upper extremity. Patient reports no radiation. Patient started experiencing this hour(s) and it has been constant. No relieving factors improve symptom(s), No exacerbating factors reported . Patient notes other (Recent cough with diagnosis of COVID which is improving. Shortness of breath. Tightness in her chest and aching left shoulder.). Related Data Home Medications Medication Instructions Recorded Confirmed quetiapine 300 mg tablet,extended 600 mg PO HS 10/15/13 05/24/21 release 24 hr (Seroquel XR) albuterol sulfate 90 mcg/actuation 2 puff inhalation Q4H PRN ##1 07/09/14 12/06/22 aerosol inhaler biotin 5 mg capsule 1 cap PO DAILY 04/27/15 12/06/22 cholecalciferol (vitamin D3) 125 1 tab PO DAILY 04/27/15 12/06/22 mcg (5,000 unit) tablet fluticasone propionate 110 2 puff inhalation BID 04/27/15 05/24/21 mcg/actuation HFA aerosol inhaler (Flovent HFA) loratadine 10 mg tablet 10 mg PO DAILY 04/27/15 05/24/21 omeprazole magnesium 20 mg 20 mg PO DAILY PRN 04/27/15 05/24/21 tablet,delayed release (Prilosec OTC) folic acid 1 mg tablet 1 mg PO DAILY 03/03/18 12/06/22 multivit with 1 ea PO DAILY 03/03/18 12/06/22 dskvgojl-uhqv-XH-lutein 8 mg iron-400 mcg-300 mcg tablet (Centrum Silver Women) benztropine 2 mg tablet 2 mg PO DAILY 07/09/20 05/24/21 lorazepam 1 mg tablet 1 mg PO TID PRN #30 tabs 07/09/20 12/06/22 scopolamine base 1 mg over 3 days 1 patch transdermal Q72H PRN 07/09/20 12/06/22 transdermal patch nausea and vomiting #24 ea montelukast 10 mg tablet 10 mg PO DAILY 01/28/21 12/06/22 topiramate 100 mg tablet 100 mg PO BID 01/28/21 05/24/21 acetaminophen 500 mg tablet 500 mg PO Q6H PRN PRN pain #60 tabs 05/14/21 12/06/22 budesonide-formoterol HFA 160 2 puff inhalation 12/06/22 mcg-4.5 mcg/actuation aerosol inhaler (Symbicort) hydroxyzine HCl 50 mg tablet 50 mg PO DAILY 12/06/22 12/06/22 lurasidone 80 mg tablet (Latuda) 80 mg PO DAILY 12/06/22 12/06/22 Previous Rx's Medication Instructions Recorded albuterol sulfate 90 mcg/actuation 2 puff inhalation Q4H PRN ##1 07/09/14 aerosol inhaler lorazepam 1 mg tablet 1 mg PO TID PRN #30 tabs 07/09/20 scopolamine base 1 mg over 3 days 1 patch transdermal Q72H PRN 07/09/20 transdermal patch nausea and vomiting #24 ea acetaminophen 500 mg tablet 500 mg PO Q6H PRN PRN pain #60 tabs 05/14/21 Allergies Allergy/AdvReac Type Severity Reaction Status Date / Time Penicillins Allergy Severe Anaphylaxsis, Verified 12/06/22 12:53 throat tightness divalproex sodium Allergy Intermediate Verified 12/06/22 12:53 [From Depakote] hydrocodone [From Vicodin] Allergy Intermediate rash Verified 12/06/22 12:53 latex Allergy Verified 12/06/22 12:53 aspirin AdvReac Severe increases Verified 12/06/22 12:53 toxicity combined w/ lithium ibuprofen AdvReac Severe increases Verified 12/06/22 12:53 toxicity combined w/ lithium General Stated Complaint: Dizzy/Sync DENNIS: 3 Review of Systems Narrative: 8 systems were reviewed and otherwise negative PFSH All Active Problems (Updated 12/06/22 @ 15:18 by Fletcher Vidal MD) Strain of chest wall (Acute) Ganglion cyst of volar aspect of right wrist (Acute) S/P Excision: 05/14/2021 Contusion of left index finger (Acute) Medical History Asthma Bipolar 1 disorder (01/08/18) Depression (01/08/18) Environmental allergies Obesity (BMI 30.0-34.9) (01/08/18) Surgical History Hx of tubal ligation Social History Smoking/Tobacco Use Status: Former Tobacco Use Quit Date: 10/12/18 Smoking risk assessment performed?: Yes Alcohol Intake: never Drug use: Occasionally Substance use type: marijuana Do you feel safe at home: Yes Do you feel safe in your relationship?: Yes Exam Narrative Exam Narrative: GEN: awake, alert, oriented 3. Pleasant, well groomed, interactive. HEAD: Normocephalic, atraumatic ENT: Mucous membranes moist, oropharynx unremarkable, External ear exam unremarkable EYES: PERRL, EOMI NECK: Full ROM, no NELSON, no menigismus CHEST/RESP: Slight upper anterior chest tenderness to palpation, clear to auscultation bilateral, no wheeze/rhonchi/rales CARDIOVASCULAR: RRR, no murmur, rub yoni. 2+ Rad pulse bilateral ABDOMEN: Soft, nontender, no mass. +Bowel sounds EXT: Full ROM, no edema, no rash, left anterior shoulder tender to palpation, normal range of motion is preserved. Neuro: Grossly normal neurologic exam, conversant, interactive. Psych: Speech fluent, thoughts congruent, affect normal Course Vital Signs Vital signs: Vital Signs Pulse 74 12/06/22 12:50 Respiratory Rate 20 12/06/22 12:50 Blood Pressure 155/87 H 12/06/22 12:50 Pulse 74 12/06/22 12:50 Respiratory Rate 20 12/06/22 12:50 Respiratory Effort Normal 12/06/22 12:57 Blood Pressure 155/87 H 12/06/22 12:50 Blood Pressure Position Sitting 12/06/22 12:50 Oxygen Delivery Method Room Air 12/06/22 12:50 Oxygen Flow Rate 0 12/06/22 12:50 Pain Level 4 12/06/22 12:50
[2022-12-06 13:29] LABS: Abs Immature Grans 0.05 10^3/uL (0.0-0.06); Absolute Basophil Count 0.13 10^3/uL (0.0-0.2); Absolute Lymphocyte Count 2.89 10^3/uL (1.2-3.4); Absolute Neutrophil Count 8.23 10^3/uL (1.2-6.7); Eosinophils % 5.4; HCT 37.7 % (36.0-46.0); HGB 12.7 g/dL (11.2-15.7); Immature Grans % 0.4; Lymphocytes % 22.4; MCH 28.5 pg (27.0-33.0); MCHC 33.7 % (32.0-36.0); MCV 85 fL (80-95); MPV 9.6 fL (8.0-11.0); Neutrophils % 63.8; Platelet Count 303 10^3/uL (130-400); RBC 4.45 10^6/uL (3.93-5.22)
[2022-12-06] MEDS: Ketorolac 15 MG/ML VIAL IVP (13:30)
[2022-12-06] MEDS: Normal Saline 1,000 ML 150 ML IV (13:30)
[2022-12-06 13:51] LABS: ALT 23 U/L (14-59); AST 14 U/L (15-37); Albumin 4.1 g/dL (3.4-5.0); Alkaline Phosphatase 54 U/L (46-116); Anion Gap 9.5 mmol/L (3-11); BUN 12 mg/dL (7-18); Bilirubin, Total 0.5 mg/dL (0.2-1.0); CO2 25.5 mmol/L (21.0-32.0); Calcium 9.5 mg/dL (8.5-10.1); Chloride 104 mmol/L (98-107); Estimated GFR 73.04 (mL/min/1.73m2); Glucose 87 mg/dL (74-106); Magnesium 1.7 mg/dL (1.8-2.4); Potassium 3.6 mmol/L (3.5-5.1); Sodium 139 mmol/L (136-145); Total Protein 7.5 g/dL (6.4-8.2)
[2022-12-06 13:52] LABS: Troponin I < 50 ng/L (<or=60)
--- NOTE | 2022-12-06 14:00 | DI.CT_ITS ---
Exam(s) CT CHEST PE CTA EXAM: CT CHEST PE CTA CLINICAL HISTORY: L anterior pain, elev DDImer. TECHNIQUE: Imaging Protocol: Axial CT angiography was performed with multi-slice acquisition and mu lti-planar and/or 3D reconstructions. CONTRAST MATERIAL: Intravenous: Omnipaque 350 contrast volume:100 mL COMPARISON: CT CT BRAIN NECK CTA from 07/09/2020 FINDINGS: Tracheobronchial tree: Patent where visualized. Pulmonary parenchyma: No consolidation or dominant measurable mass. No architectural distortion. Pulmonary Arteries: No evidence of filling defect to suggest pulmonary emboli. Mediastinum and Myah: No dominant adenopathy or fluid collection. The esophagus is unremarkable. Visualized thyroid gland: Unremarkable. Pleura: No effusion or pneumothorax. Heart: The heart is not dilated. No coronary artery calcifications are seen. No pericardial effusion. Aorta: Thoracic aorta non-dilated. No evidence of dissection. Upper abdomen: Unremarkable. Soft tissues: Unremarkable. Bones: Within normal limits for the patient's age. IMPRESSION: No evidence of pulmonary embolism, thoracic aortic dissection or aneurysm. RADIATION DOSE DELIVERED: 503.22mGy.cm Total DLP DATA REPOSITORY: All CT scans at this facility are submitted to the National Radiology Data Registry (NRDR) Dose Index Registry (DIR) with the [employer] (ACR). RADIATION OPTIMIZATION: All CT scans at this facility use at least one of these dose optimization te chniques: automated exposure control; mA and/or kV adjustment per patient size (includes targeted exa ms where dose is matched to clinical indication); or iterative reconstruction.
[2022-12-06 14:05] LABS: D-Dimer 1121 ng/mlFEU (<500)
--- NOTE | 2022-12-06 14:16 | DI.VRAD_ITS ---
PROCEDURE INFORMATION: Exam: XR Chest Exam date and time: 12/06/2022 1:53 PM Age: 42 years old Clinical indication: Pain; Left-sided TECHNIQUE: Imaging protocol: Radiologic exam of the chest. Views: 2 views. COMPARISON: MR UPPER JOINT RT WO 02/15/2021 3:10 PM FINDINGS: Lungs: Unremarkable. No consolidation. Pleural spaces: No pleural effusion. No pneumothorax. Heart/Mediastinum: Unremarkable. No cardiomegaly. Bones/joints: No acute bone abnormality. IMPRESSION: No acute findings. Dictated and Authenticated by: Jesus Noyola MD. Ordering:CT Bynum MD
[2022-12-06] MEDS: Omnipaque 350 MG/ML 100 ML BTL IJ (14:38)
[2022-12-06] MEDS: Normal Saline - Diluent 50 ML VIAL IJ (14:38)
--- NOTE | 2022-12-06 15:15 | DI.VRAD_ITS ---
PROCEDURE INFORMATION: Exam: CTA Chest With Contrast Exam date and time: 12/06/2022 2:35 PM Age: 42 years old Clinical indication: Other: L anterior pain, elevated d dimer TECHNIQUE: Imaging protocol: Computed tomographic angiography of the chest with contrast. 3D rendering (Not supervised by radiologist): MIP and/or 3D reconstructed images were created by the technologist. Radiation optimization: All CT scans at this facility use at least one of these dose optimization techniques: automated exposure control; mA and/or kV adjustment per patient size (includes targeted exams where dose is matched to clinical indication); or iterative reconstruction. Contrast material: OMNIPAQUE 350; Contrast volume: 100 ml; Contrast route: INTRAVENOUS (IV); COMPARISON: CR XR CHEST 2V PA LATERAL 12/06/2022 1:53 PM FINDINGS: Pulmonary arteries: Unremarkable. No emboli. Aorta: No aortic aneurysm. Lungs: Unremarkable. No consolidation. No masses. Pleural spaces: Unremarkable. No pneumothorax. No pleural effusion. Heart: Unremarkable. No cardiomegaly. No pericardial effusion. Lymph nodes: Unremarkable. No enlarged lymph nodes. Bones/joints: Unremarkable. No acute fracture. Soft tissues: Unremarkable. IMPRESSION: No acute findings. Dictated and Authenticated by: Jesus Noyola MD. Ordering:CT Bynum MD
== END 2022-12-06 16:47 | disposition home or self-care (01) ==
PROVIDERS: Emergency Provider Emergency Medicine; PCP Physician Assistant
DX: S29.011A Strain of muscle and tendon of front wall of thorax, initial encounter (principal); J45.909 Unspecified asthma, uncomplicated; X58.XXXA Exposure to other specified factors, initial encounter; Y92.009 Unspecified place in unspecified non-institutional (private) residence as the place of occurrence of the external cause; Y99.8 Other external cause status
CPT/HCPCS: 71275; 80053; 93005; 96361; 96374; 99285; 71046; 83735; 84484; 85025; 85379; 93010; J1885; J3490

== ENCOUNTER 2023-05-12 00:28 | Outpatient (CLI) | payer MEDICAID, SELFPAY ==
--- NOTE | 2023-05-12 07:00 | DI.MRI_ITS ---
Exam(s) MR UPPER JOINT RT WO EXAM: MR UPPER JOINT RT WO CLINICAL HISTORY: cyst recurrence, ganglion cyst volar aspect rt wrist, M67.431. TECHNIQUE: Multiplanar multisequence MRI was performed. COMPARISON: None. FINDINGS: BONES: There is no fracture or contusion pattern. JOINTS: The radiocarpal joint shows small amount of fluid. The carpal joints are unremarkable. TENDONS: Flexors: Unremarkable. Extensors: Unremarkable. MUSCLES: Unremarkable. MEDIAN NERVE: Unremarkable on this noncontrast examination. SOFT TISSUES: Multiloculated ganglion cyst in same location as prior exam, at the volar, radial aspec t of the wrist. It is slightly smaller in size with approximate dimensions 14 millimeters transverse by 11 millimeters cephalo caudad by 11 millimeters AP. TRIANGULAR FIBROCARTILAGE: Unremarkable. IMPRESSION: Recurrence ganglion cyst, smaller in size than on the prior exam DATA REPOSITORY:
== END 2023-05-12 00:48 ==
LOC: DI 00:30
PROVIDERS: PCP Physician Assistant; Visit Provider Student in an Organized Health Care Education/Training Program
DX: M67.431 Ganglion, right wrist (principal)
CPT/HCPCS: 73221

== ENCOUNTER 2023-05-13 05:56 | Day surgery (SDC) | payer MEDICAID, SELFPAY ==
[2023-05-13 06:13] VITALS: BP 112/90; PULSE 76; RESP 16; TEMP 35.9; O2SAT 98
--- NOTE | 2023-05-13 06:59 | W.ANESPRE ---
General Info Date of Service Date Performed: 05/13/23 Height: 5 ft 6 in Weight: 109 kg Body Mass Index (BMI): 38.7 Surgical Procedure: Operation Date: 05/13/23 07:40 Proposed Procedure Side Surgeon p Wrist Cyst Excision Right Gt Castro MD Meds Allergies and Home Medications Allergies Allergy/AdvReac Type Severity Reaction Status Date / Time Penicillins Allergy Severe Anaphylaxsis, Verified 05/13/23 06:21 throat tightness divalproex sodium Allergy Intermediate Verified 05/13/23 06:21 [From Depakote] hydrocodone [From Vicodin] Allergy Intermediate rash Verified 05/13/23 06:21 latex Allergy Verified 05/13/23 06:21 aspirin AdvReac Severe increases Verified 05/13/23 06:21 toxicity combined w/ lithium ibuprofen AdvReac Severe increases Verified 05/13/23 06:21 toxicity combined w/ lithium Home Medication Medication Instructions Recorded albuterol sulfate 90 mcg/actuation 2 puff inhalation Q4H PRN ##1 07/09/14 aerosol inhaler biotin 5 mg capsule 1 cap PO DAILY 04/27/15 cholecalciferol (vitamin D3) 125 1 tab PO DAILY 04/27/15 mcg (5,000 unit) tablet loratadine 10 mg tablet 10 mg PO DAILY 04/27/15 folic acid 1 mg tablet 1 mg PO DAILY 03/03/18 rziabhwm-fhhz-hnbu 8 mg-folic 400 1 ea PO DAILY 03/03/18 mcg-K 50 mcg-lutein 300 mcg tablet (Centrum Silver Women) scopolamine base 1 mg over 3 days 1 patch transdermal Q72H PRN 07/09/20 transdermal patch nausea and vomiting #24 ea montelukast 10 mg tablet 10 mg PO DAILY 01/28/21 topiramate 100 mg tablet 100 mg PO BID 01/28/21 budesonide-formoterol HFA 160 2 puff inhalation DAILY 12/06/22 mcg-4.5 mcg/actuation aerosol inhaler (Symbicort) meclizine 25 mg tablet 25 mg PO TID PRN 03/12/23 trazodone 100 mg tablet 100 mg PO QHS PRN 03/12/23 lurasidone 120 mg tablet (Latuda) 80 mg PO QPM 04/28/23 acetaminophen 500 mg tablet 1,000 mg PO TID #90 tabs 05/13/23 hydrocodone 5 mg-acetaminophen 325 1 tab PO Q6H PRN pain #6 tabs 05/13/23 mg tablet Current Visit Medications: Current Medications Generic Name Dose Route Start Last Admin Trade Name Echo PRN Reason Stop Dose Admin Ringer's Solution 1,000 mls @ 80 mls/hr 05/13/23 06:00 IV 06/11/23 23:59 INFUSION MARIA L Cefazolin Sodium/Dextrose 2 gm in 50 mls @ 100 mls/hr 05/13/23 06:00 Ancef Duplex IVPB 05/13/23 16:00 PREOP MARIA L IV Miscellaneous Supplies 1 each 05/13/23 06:00 Iv Access IV 06/11/23 23:59 DIRECTED MARIA L Sodium Chloride 0 ml 05/13/23 06:00 Normal Saline Flush 10 Ml Syr IV 06/11/23 23:59 PRN PRN Sodium Chloride 0 ml 05/13/23 06:00 Normal Saline 10 Ml Vial IJ 06/11/23 23:59 DIRECTED PRN Sterile Water 0 ml 05/13/23 06:00 Water,Injection,Sterile 10 Ml Vial IJ 06/11/23 23:59 DIRECTED PRN PFSH Active Problems Active Problems: Problem Status Onset Code Ganglion cyst of volar aspect of right wrist M67.431 Contusion of left index finger S60.022A Medical History Medical History Asthma Bipolar 1 disorder (01/08/18) Depression (01/08/18) Environmental allergies Obesity (BMI 30.0-34.9) (01/08/18) Periodic limb movement disorder Tobacco use Surgical History Surgical History Hx of tubal ligation Tobacco Smoking/Tobacco Use Status: Former Tobacco Use Alcohol Alcohol Intake: current Alcohol intake frequency: holidays/special occasions only Substance Use Substance use: Occasionally Substance use type: marijuana Vital Signs and Lab Results Vital Signs Most Recent Vital Signs in EMR: Most Recent Vital Signs Temp Pulse Resp BP Pulse Ox 35.9 C L 76 16 112/90 98 05/13/23 06:13 05/13/23 06:13 05/13/23 06:13 05/13/23 06:13 05/13/23 06:13 Lab Results Blood Type / Crossmatch: No Data to Display Complete Blood Count: No Data to Display Complete Metabolic Panel: No Data to Display Liver Function Panel: No Data to Display Coagulation Panel: No Data to Display Cardiac Panel: No Data to Display Arterial Blood Gas: No Data to Display Venous Blood Gas: No Data to Display Pancreas Panel: No Data to Display Thyroid Panel: No Data to Display Infectious Disease: No Data to Display Blood Cultures: No Data to Display Toxicology Panel: No Data to Display Panel: No Data to Display Imaging and Studies Imaging and Studies Study information below may be from another EMR and interpreted by another provider. Please see original notes in EMR for more complete details. EKG Summary: 06/2020: normal sinus, normal P axis. CT Summary: CTA 06/2020 head/neck: normal [facility]A of [place] [facility], normal head CT, normal neck CTA. Pulmonary Function Summary: 2015: mild obstructive airway dz with sig bronchodilator response. Anesthesia Assessment and Plan Anesthesia History Personal History: No History of Anesthesia Complications Family History: No Family History of Anesthesia Complications Exercise Tolerance Exercise Tolerance: Metabolic Equivalents>4 Pertinent Negatives Pertinent Negatives: No Symptoms of GERD and No Major Cardiovascular Symptoms or Complaints Cardiac & Pulmonary Exam Cardiac Exam: Normal S1/S2 Heart Sounds Pulmonary Exam: Clear Bilateral Breath Sounds Implantable Cardiac Device Does patient have a Pacemaker or an ICD?: No Airway Exam Known Difficult Airway: No Mallampati Class: 1 Mouth Opening: Normal (> 3cm) Thyromental Distance: Greater than 3 cm Neck Range of Motion: Full ROM Neck Circumference: Thick Teeth Condition: Normal Dentition ASA Classification ASA Score: ASA 2 Emergency Case?: No NPO Status NPO Status: NPO Clears >2 hours, Solids >8 hours Status Status: Negative HCG Anesthesia Plan Resuscitation Status: Full Code Anesthesia Technique: General Anesthesia Airway Planned: Natural Airway Monitors Used: Standard Monitors
[2023-05-13 07:02] VITALS: BMI 38.7
[2023-05-13] MEDS: Lactated Ringers 1,000 ML 80 ML IV (07:03)
--- NOTE | 2023-05-13 07:15 | PDOC.DSDIS_ITS ---
Date of service: 05/13/23 Time of Service: 07:15 Discharge Plan Disposition Patient Disposition: Home Condition: Good Discharge Details Reason For Visit: Excision cyst R wrist Attending Provider: Gt Castro Primary Care Provider: Kalin Ramon Home Meds and New Rx's Prescriptions: New acetaminophen 500 mg tablet 1,000 mg PO TID Qty: 90 0RF tramadol 50 mg tablet 50 mg PO Q8H PRNQty: 10 0RF Continued montelukast 10 mg tablet 10 mg PO DAILY folic acid 1 MG tablet 1 mg PO DAILY trazodone 100 mg tablet 100 mg PO QHS PRN meclizine 25 mg tablet 25 mg PO TID PRN lurasidone [Latuda] 120 mg tablet 80 mg PO QPM Rx Instructions: must administer with food (at least 350 calories) topiramate 100 mg tablet 100 mg PO BID albuterol sulfate 8.5 GM HFA aerosol inhaler 2 puff Inhalation Q4H PRN Qty: 1 0RF biotin 5 MG capsule 1 cap PO DAILY cholecalciferol (vitamin D3) 5,000 UNIT tablet 1 tab PO DAILY loratadine 10 MG tablet 10 mg PO DAILY Centrum Silver Women 1 EACH tablet 1 ea PO DAILY scopolamine base 1 mg over 3 days patch 3 day 1 patch transdermal Q72H PRN (Reason: nausea and vomiting) Qty: 24 0RF budesonide-formoterol [Symbicort] 160-4.5 mcg/actuation HFA aerosol inhaler 2 puff INHALATION DAILY Patient Comments: INHALE ONE PUFF BY MOUTH TWICE A DAY - RINSE MOUTH AFTER USING Discontinued acetaminophen 500 mg tablet 500 mg PO Q6H PRN PRN (Reason: pain) Qty: 60 3RF Discharge Instructions Additional Instructions: Wrist Discharge Instructions Activity:?You should keep the hand/wrist elevated as much as possible for the first few days.? You may use the other fingers as tolerated but avoid trying to do too much too soon.? You may perform light activities with the splint in place. Dressing/Cast:?Your splint should stay in place at all times.? Do NOT get it wet.? You may loosen the JOHN wrap if you feel it is too tight and then rewrap more loosely. Medications: -?You should take Tylenol for baseline pain control. - You have been prescribed a stronger pain medication, Hydrocodone, for breakthrough pain. - You may apply ice over the wrist, just double bag so it doesn't get wet. Follow-up:?10-14 days Stand Alone Forms: Anesthesia Discharge Inst., Lorne Harmon ([facility]) Referrals: Gt Castro MD [ [facility] STAFF PHYSICIAN] - Activity:: Activity as Tolerated Remove Dressings/Wound Care:: Do Not Remove Shower/Bathe:: Cover Diet:: As Tolerated Discharge Orders Discharge Orders: Discharge Order (Routine); Ordered 05/13/23 Ordered By: Jose Sparks Discharge Data Discharge Date/Time-TO BE ENTERED AT DEPARTURE: 05/13/23 09:10 Discharge Comment: Pt ambulated [facility] to [facility] as safe ride for home.
--- NOTE | 2023-05-13 07:19 | W.PREOPHP ---
Assessment and Plan Assessment and plan (1) Ganglion cyst of volar aspect of right wrist: Status: Acute Assessment and plan: Janet is a 43-year-old female who has recurrence of a right volar wrist ganglion cyst. MRI confirmed this is a simple type cyst arising from the radioscaphoid joint underneath the flexor carpi radialis tendon. I did review this with her in detail. Once again and I discussed the technical features the case. I would look for the cyst arising from the capsule deep to the flexor carpi radialis tendon which potentially could have been missed the last surgery. I reviewed the risk of the procedure to include bleeding, infection, pain, stiffness, damage to nerves and vessels, damage to muscle and tendons, cyst recurrence, need for repeat procedures. Despite these risk, she elects to proceed. History of Present Illness History of Present Illness Chief Complaint: Right Volar Wrist Cyst Narrative: Janet is a 43-year-old female who has recurrence of a volar wrist ganglion cyst. MRI was performed recently 1 was reviewed. This demonstrates a mostly simple cyst arising from within the bed of the previous excision scar and traveling deep to the flexor carpi radialis tendon towards the radial scaphoid joint. No abnormal findings otherwise. She reports pain over the cyst and pain with range of motion. She feels that it is getting larger and continues to bother her and therefore asked for it to be removed. No changes to her medical history. No chest pain or shortness of breath. No recent illnesses or fevers or chills. Review of Systems All systems reviewed & are unremarkable except as noted in HPI and below PFSH All Active Problems Ganglion cyst of volar aspect of right wrist (Acute) S/P Excision: 05/14/2021 Contusion of left index finger (Acute) Medical History Asthma Bipolar 1 disorder (01/08/18) Depression (01/08/18) Environmental allergies Obesity (BMI 30.0-34.9) (01/08/18) Periodic limb movement disorder Tobacco use Surgical History Hx of tubal ligation Social History Smoking/Tobacco Use Status: Former Tobacco Use Quit Date: 07/12/22 Smoking risk assessment performed?: Yes Alcohol Intake: current Alcohol Intake frequency: holidays/special occasions only Drug use: Occasionally Substance use type: marijuana Housing: apartment Do you feel safe at home: Yes Do you feel safe in your relationship?: Yes Meds Allergies and Home Medications Allergies Allergy/AdvReac Type Severity Reaction Status Date / Time Penicillins Allergy Severe Anaphylaxsis, Verified 05/13/23 06:21 throat tightness divalproex sodium Allergy Intermediate Verified 05/13/23 06:21 [From Depakote] hydrocodone [From Vicodin] Allergy Intermediate rash Verified 05/13/23 06:21 latex Allergy Verified 05/13/23 06:21 aspirin AdvReac Severe increases Verified 05/13/23 06:21 toxicity combined w/ lithium ibuprofen AdvReac Severe increases Verified 05/13/23 06:21 toxicity combined w/ lithium Home Medications Medication Instructions Recorded Confirmed Type albuterol sulfate 90 mcg/actuation 2 puff inhalation Q4H PRN ##1 07/09/14 05/13/23 Rx aerosol inhaler biotin 5 mg capsule 1 cap PO DAILY 04/27/15 05/13/23 History cholecalciferol (vitamin D3) 125 1 tab PO DAILY 04/27/15 05/13/23 History mcg (5,000 unit) tablet loratadine 10 mg tablet 10 mg PO DAILY 04/27/15 05/13/23 History folic acid 1 mg tablet 1 mg PO DAILY 03/03/18 05/13/23 History lyronimd-gzjx-kkaa 8 mg-folic 400 1 ea PO DAILY 03/03/18 05/13/23 History mcg-K 50 mcg-lutein 300 mcg tablet (Centrum Silver Women) scopolamine base 1 mg over 3 days 1 patch transdermal Q72H PRN 07/09/20 05/12/23 Rx transdermal patch nausea and vomiting #24 ea montelukast 10 mg tablet 10 mg PO DAILY 01/28/21 05/12/23 History topiramate 100 mg tablet 100 mg PO BID 01/28/21 05/12/23 History budesonide-formoterol HFA 160 2 puff inhalation DAILY 12/06/22 05/13/23 History mcg-4.5 mcg/actuation aerosol inhaler (Symbicort) meclizine 25 mg tablet 25 mg PO TID PRN 03/12/23 05/12/23 History trazodone 100 mg tablet 100 mg PO QHS PRN 03/12/23 05/12/23 History lurasidone 120 mg tablet (Latuda) 80 mg PO QPM 04/28/23 05/12/23 History acetaminophen 500 mg tablet 1,000 mg PO TID #90 tabs 05/13/23 Rx hydrocodone 5 mg-acetaminophen 325 1 tab PO Q6H PRN pain #6 tabs 05/13/23 Rx mg tablet Exam Const General: cooperative, healthy appearing, comfortable and no acute distress Resp Effort & Inspection: normal respiratory effort Auscultation: clear to auscultation bilaterally Cardio Rate: regular rate Rhythm: regular rhythm Results Last Vital Signs Temp 35.9 C L 05/13/23 06:13 Pulse 76 05/13/23 06:13 Resp 16 05/13/23 06:13 BP 112/90 05/13/23 06:13 Pulse Ox 98 05/13/23 06:13
[2023-05-13] MEDS: CLINDAMYCIN 600 MG/50 ML BAG 100 MG IVPB (07:33)
[2023-05-13] MEDS: Sodium Bicarbonate 50 MEQ/50 ML VIAL (07:42)
[2023-05-13] MEDS: Lidocaine 1% Pres-Free W/EPI 1/200,000 30 ML VIAL (07:42)
[2023-05-13 08:10] VITALS: BP 110/51; PULSE 72; RESP 16; TEMP 36; O2SAT 96
--- NOTE | 2023-05-13 08:11 | ROE_ITS ---
Date of service: 05/13/23 Time of Service: 08:11 Operative Note Operative Note DATE OF PROCEDURE: 05/13/23 PRE-OP DIAGNOSIS: Recurrent right volar Wrist Ganglion Cyst POST-OP DIAGNOSIS: same PROCEDURE: Excision of volar wrist ganglion cyst -right wrist SURGEON: Gt Castro ANESTHESIA TYPE: General:No Airway Refer to Anesthesia Record ESTIMATED BLOOD LOSS: 0 PATHOLOGY: none sent TOURNIQUET TIME: 10 COMPLICATIONS: None Patient was transported to: PACU Patient's condition: stable Indications: Janet is a 43-year-old female who I have seen for a volar wrist ganglion cyst. She had initial excision done 6 or [address] Wilson and then 2 years ago by myself. Unfortunately has returned once again. MRI showed that there was extension of the cyst traveling under the flexor carpi radialis tendon into the wrist joint. He continued to be bothersome despite giving it time. It seemingly was getting larger. Therefore, I did offer excision. I discussed the risks to include bleeding, infection, pain, stiffness, damage to nerve and vessels, recurrence. Despite these risks, [she] elects to proceed. Findings: There is a large ganglion cyst arising between the radial artery and the flexor carpi radialis tendon with dense fibrous scar tissue adhesions. He was able to be followed down to the wrist joint under the flexor carpi radialis tendon. Arthrotomy and aggressive synovectomy was performed in this region. Procedure Description: Janet was greeted in the preoperative holding area. Identity was confirmed and the correct site was identified and marked. Consent was reviewed the patient and signed. History and physical was updated. The patient to take not to the operating room placed in supine position. All bony prominences were well- padded. A nonsterile tourniquet was placed high up onto the right arm. The arms and prepped with ChloraPrep and draped in a standard fashion. The surgical site was marked on the skin, utilizing the previous incision, and injected with 1% lidocaine with epinephrine buffered with sodium bicarbonate. The limb was exsanguinated and the tourniquet was inflated to 250 mmHg where it stayed for 10 minutes. The skin was incised sharply. Deeper dissection was carried out with tenotomy scissors. The mass was easily identified and protected with dissection carried around. Given the MRI findings the attention was turned to the distal and ulnar aspect of the cyst, releasing it from adhesions of scar tissue and the flexor carpi radialis tendon and following it down to the wrist joint. I was able to identify an opening in the deep wrist fascia and wrist capsule which was underneath the flexor carpi radialis tendon. The cyst was then deflated and the cyst stalk was continued to be followed into the wrist joint. This was transected sharply. The cyst structure was resected and its origin from the carpus was opened with tenotomy scissors and rongeur. Synovitis in this region of the wrist capsule and wrist joint was also debrided. The wound was then thoroughly irrigated. The tourniquet was deflated. There is no major arterial bleeding. The wound was dry. The deep layer was reapproximated with a 3-0 Vicryl. The skin was closed with a running 4-0 Monocryl followed by skin glue, gauze, and Ash wrap. The wrist was placed into a fiberglass short arm splint At the end the case all counts were correct. The patient was awakened from anesthesia and taken to the [facility] in stable condition. There were no noted complications. I recommend that she stay in the splint for the first 7 to 10 days. At the office visit the splint to be removed and she can position to a removable brace as needed for comfort.
[2023-05-13 08:20] VITALS: BP 123/63; PULSE 59; RESP 18; TEMP 36.3; O2SAT 100
--- NOTE | 2023-05-13 08:44 | W.ANESPOSTOP ---
Postoperative Evaluation Date, Time and Location Date Performed: 05/13/23 Time Performed: 08:35 Patient Location: Day Surgery Unit Vital Signs Most Recent Imported Vital Signs: Most Recent Vital Signs Temp Pulse Resp BP Pulse Ox 36 C L 72 16 110/51 L 96 05/13/23 08:10 05/13/23 08:10 05/13/23 08:10 05/13/23 08:10 05/13/23 08:10 Pain Score Most Recent Pain Score: Most Recent Pain Score Pain Level 0 05/13/23 08:10 Assessment Mental Status: Awake (Alert & Oriented to Patient Baseline) Airway and Respiratory Function: Patent airway with normal (patient baseline) respiratory exam Cardiovascular Function: Hemodynamically Stable Hydration Status: Adequately Hydrated Nausea & Vomiting: No Nausea or Vomiting Pain: Pt. Denies Any Pain Peripheral Nerve Block: Patient did not receive a nerve block
[2023-05-13] MEDS: Scopolamine 1 MG/3 DAYS PATCH TD (08:54)
== END 2023-05-13 09:10 | disposition home or self-care (01) ==
PROVIDERS: PCP Physician Assistant; Visit Provider Student in an Organized Health Care Education/Training Program
PROC: (CPT 25111; principal; 2023-05-13 07:30)
DX: M67.431 Ganglion, right wrist (principal)
CPT/HCPCS: 25111; J1885; J2001; J3010

== ENCOUNTER 2023-08-10 12:36 | Emergency (ER) | payer MEDICAID, SELFPAY ==
[2023-08-10 12:39] VITALS: BP 138/80; PULSE 77; RESP 20; TEMP 36.6; O2SAT 97
[2023-08-10 12:46] VITALS: BP 138/80; PULSE 77; RESP 20; TEMP 36.6; O2SAT 97
[2023-08-10 12:50] VITALS: RESP 16
--- NOTE | 2023-08-10 13:00 | DI.CT_ITS ---
Exam(s) CT RENAL COLIC WO EXAM: CT RENAL COLIC WO CLINICAL HISTORY: Left flank/ ABD pain. TECHNIQUE: Imaging Protocol: Axial computed tomography images with coronal and sagittal reformatted images were created and reviewed. CONTRAST MATERIAL: Noncontrast COMPARISON: CT CT CHEST PE CTA from 12/06/2022 FINDINGS: ABDOMEN: Lung Bases: Normal where visualized. Liver: Normal attenuation. No measurable mass. Gallbladder and biliary tract: No radiodense calculus or dilation. Pancreas: Normal density, no calcifications or inflammatory process. Spleen: Normal. Kidneys: Normal size, contour and axis. No radiodense stones or obstructive uropathy. No masses seen. Adrenal glands: No masses seen. Abdominal Aorta: Abdominal portion non-dilated. Soft tissues: Small fatty containing umbilical hernia. PELVIS: Bladder: Nearly empty. No evidence of stones.No visible mass. Bowel: No obstruction or bowel wall thickening. Normal quantity of stool. Appendix normal. Reproductive: Uterus retroverted and mildly enlarged. Ovaries unremarkable. Peritoneal cavity: No ascites, collection or mesenteric inflammatory response. Bones: Degenerative disc changes L5-S1. IMPRESSION: Un no acute abnormality in the abdomen and pelvis. RADIATION DOSE DELIVERED: Total DLP DATA REPOSITORY: All CT scans at this facility are submitted to the National Radiology Data Registry (NRDR) Dose Index Registry (DIR) with the [employer] (A[employer]). RADIATION OPTIMIZATION: All CT scans at this facility use at least one of these dose optimization te chniques: automated exposure control; mA and/or kV adjustment per patient size (includes targeted exa ms where dose is matched to clinical indication); or iterative reconstruction.
[2023-08-10 13:24] LABS: Bilirubin Negative (Negative); Blood Moderate (Negative); Clarity Sl Cloudy (Clear); Glucose Negative (Negative); Ketones Negative (Negative); Leukocyte Esterase Negative (Negative); Nitrite Negative (Negative); Specific Gravity >= 1.030 (1.005-1.025); Urobilinogen 0.2 mg/dL (Up to 0.2); pH 5.5 (5-8)
[2023-08-10] MEDS: Ketorolac 15 MG/ML VIAL IVP (13:30)
[2023-08-10] MEDS: Normal Saline 1,000 ML 1000 ML IV (13:30)
[2023-08-10 13:31] LABS: Bacteria Moderate HPF (Negative); C & S Indicated? No/Sq. Contamination; Casts Negative LPF (Negative); Crystals Negative HPF (Negative); Epithelial Cells Many HPF (Negative); Mucus Heavy (Negative); WBC 0-2 HPF (0-5)
[2023-08-10] MEDS: ACETAMINOPHEN 1,000 MG/100 ML BTL 400 MG IVPB (13:36)
[2023-08-10 13:39] LABS: Abs Immature Grans 0.03 10^3/uL (0.0-0.06); Absolute Basophil Count 0.11 10^3/uL (0.0-0.2); Absolute Eosinophil Count 0.49 10^3/uL (0.0-0.7); Absolute Lymphocyte Count 2.12 10^3/uL (1.2-3.4); Absolute Monocyte Count 0.44 10^3/uL (0.1-0.8); Absolute Neutrophil Count 5.65 10^3/uL (1.2-6.7); Basophils % 1.2; Eosinophils % 5.5; HCT 38.8 % (36.0-46.0); HGB 12.5 g/dL (11.2-15.7); Immature Grans % 0.3; MCH 28.2 pg (27.0-33.0); MCHC 32.2 % (32.0-36.0); MCV 88 fL (80-95); MPV 9.5 fL (8.0-11.0); Platelet Count 332 10^3/uL (130-400); RBC 4.43 10^6/uL (3.93-5.22); RDW 12.9 % (11.7-14.6); WBC 8.84 10^3/uL (4.4-10.8)
--- NOTE | 2023-08-10 13:42 | W.ED.GENAD ---
Discharge Plan Disposition Patient Disposition: Home Discharge Details Clinical Impression: Acute left lower quadrant pain Primary Care Provider: Kalin Ramon ED Provider: Chris Driver Home Meds and New Rx's Prescriptions: Continued montelukast 10 mg tablet 10 mg PO DAILY folic acid 1 MG tablet 1 mg PO DAILY trazodone 100 mg tablet 100 mg PO QHS PRN meclizine 25 mg tablet 25 mg PO TID PRN lurasidone [Latuda] 120 mg tablet 80 mg PO QPM Rx Instructions: must administer with food (at least 350 calories) topiramate 100 mg tablet 100 mg PO BID albuterol sulfate 8.5 GM HFA aerosol inhaler 2 puff Inhalation Q4H PRN Qty: 1 0RF biotin 5 MG capsule 1 cap PO DAILY cholecalciferol (vitamin D3) 5,000 UNIT tablet 1 tab PO DAILY loratadine 10 MG tablet 10 mg PO DAILY acetaminophen 500 mg tablet 1,000 mg PO TID Qty: 90 0RF Centrum Silver Women 1 EACH tablet 1 ea PO DAILY scopolamine base 1 mg over 3 days patch 3 day 1 patch transdermal Q72H PRN (Reason: nausea and vomiting) Qty: 24 0RF budesonide-formoterol [Symbicort] 160-4.5 mcg/actuation HFA aerosol inhaler 2 puff INHALATION DAILY Patient Comments: INHALE ONE PUFF BY MOUTH TWICE A DAY - RINSE MOUTH AFTER USING Discharge Instructions Instructions: Abdominal Pain (ED) Additional Instructions: You may continue to use [id number] pain medication as directed on bottles and packaging. Due to what you had in the emergency department today please do not take any medications before 9:00 this evening. You may continue to eat as you normally would and stay well-hydrated. If you have any new or significant worsening of symptoms feel free to return the emergency department for reassessment otherwise follow-up with your primary care provider for recheck of your abdominal pain Stand Alone Forms: Work Release Referrals: Kalin Ramon [Primary Care Provider] - 1 week Medical Decision Making Patient presenting the emergency department for chief complaint of left lower quadrant and flank pain. Patient reports that this started on Thursday and today after walking to work had a significant increase of symptoms. Patient states that she is at the end of her menstrual cycle but denies any other urinary or vaginal symptoms, denies nausea vomiting diarrhea does state that she is getting over a sinus infection which she was treated for with antibiotics and stopped those approximately a week ago. Significant past medical history of bipolar, depression, asthma, obesity. Only past surgical history is history of tubal ligation. Physical exam shows left lower quadrant tenderness to deep palpation, slight left CVA tenderness otherwise noncontributory exam. We will plan on checking patient's labs and CT imaging. Pending results will give IV acetaminophen Toradol and fluids. Reviewed patient's labs and CBC is unremarkable, CMP only shows slightly elevated anion gap at 12.4 otherwise noncontributory labs including lipase within normal range, urinalysis does show high specific gravity protein and moderate amount of blood but no signs of infection. Do believe blood is from her finishing her menstrual cycle. Review of CT imaging and radiologist interpretation shows no acute intra-abdominal pathology. Reassessed patient and patient does state some improvement of pain after medications but not full resolution. We will perform ultrasound imaging to evaluate for ovarian torsion or other pelvic/[employer] contributor. Preliminary report from oil burner technician shows no acute findings of ovarian torsion or other abnormalities. Reassessed patient and she did have continued improvement of pain and discomfort. Will have patient follow-up with primary care for recheck of abdominal pain otherwise given overall negative work-up do feel that we can safely discharge her. Did discuss management with patient and we agreed upon just continued use of [id number] medications. After discussion of diagnosis and plan of care patient has no further needs, questions, or concerns and states clear understanding to return to the emergency department for any worsening symptoms. Prior to discharge did review the radiologist interpretation of ultrasound imaging which agreed with the preliminary report and no acute findings of emergent concern are noted. This documentation was generated using Argus dictation system, please disregard any oddities of phrase or misspellings. Imaging Data Radiologic Study: Imaging: CT Scan Radiologist's impression: Exam(s) CT RENAL COLIC WO EXAM: CT RENAL COLIC WO CLINICAL HISTORY: Left flank/ ABD pain. TECHNIQUE: Imaging Protocol: Axial computed tomography images with coronal and sagittal reformatted images were created and reviewed. CONTRAST MATERIAL: Noncontrast COMPARISON: CT CT CHEST PE CTA from 12/06/2022 FINDINGS: ABDOMEN: Lung Bases: Normal where visualized. Liver: Normal attenuation. No measurable mass. Gallbladder and biliary tract: No radiodense calculus or dilation. Pancreas: Normal density, no calcifications or inflammatory process. Spleen: Normal. Kidneys: Normal size, contour and axis. No radiodense stones or obstructive uropathy. No masses seen. Adrenal glands: No masses seen. Abdominal Aorta: Abdominal portion non-dilated. Soft tissues: Small fatty containing umbilical hernia. PELVIS: Bladder: Nearly empty. No evidence of stones.No visible mass. Bowel: No obstruction or bowel wall thickening. Normal quantity of stool. Appendix normal. Reproductive: Uterus retroverted and mildly enlarged. Ovaries unremarkable. Peritoneal cavity: No ascites, collection or mesenteric inflammatory response. Bones: Degenerative disc changes L5-S1. IMPRESSION: Un no acute abnormality in the abdomen and pelvis. Radiologic Study #2: Imaging: Ultrasound Radiologist's impression: Exam(s) US PELVIS TRANSVAGINAL EXAM: US PELVIS TRANSVAGINAL CLINICAL HISTORY: LLQ/Pelvic pain TECHNIQUE: Transabdominal and transvaginal imaging was performed using standard protocol. COMPARISON: CT CT RENAL COLIC WO from 08/10/2023 FINDINGS: UTERUS: Retroverted 9.3 x 5.7 x 6.6 cm Endometrium: 6 mm Myometrium: No discrete fibroids. Cervix: Unremarkable. OVARIES: Right: Cyst or mass: None. Left: Cyst or mass: None. DOPPLER: Color: Symmetric and uniform flow to both ovaries. No hyperemia. CUL-DE-SAC: Free fluid: None. IMPRESSION: 1. Enlarged uterus. No discrete fibroids visible. 2. Unremarkable bilateral ovaries. No evidence of torsion. Lab Data Lab results reviewed: Yes I reviewed the patient's lab results. HPI General Mode of arrival: ambulatory. Date/Time Provider Initiated Documentation: 08/10/23 12:57. Limitations to Documentation: no limitations. Information obtained by: patient and RN notes reviewed. History of Present Illness 43 year old F presents to the emergency department with the chief complaint of Left lower quadrant lower abdominal pain, described as moderate and severe, Quality is described as sharp, and is localized to the abdomen and left. Patient started experiencing this day(s) (2) and it has been constant. No relieving factors improve symptom(s), No exacerbating factors reported . Patient did receive the following treatments prior to arrival, NSAID Related Data Home Medications Medication Instructions Recorded Confirmed albuterol sulfate 90 mcg/actuation 2 puff inhalation Q4H PRN ##1 07/09/14 08/10/23 aerosol inhaler biotin 5 mg capsule 1 cap PO DAILY 04/27/15 08/10/23 cholecalciferol (vitamin D3) 125 1 tab PO DAILY 04/27/15 08/10/23 mcg (5,000 unit) tablet loratadine 10 mg tablet 10 mg PO DAILY 04/27/15 08/10/23 folic acid 1 mg tablet 1 mg PO DAILY 03/03/18 08/10/23 ghywjgrp-lqiv-psxf 8 mg-folic 400 1 ea PO DAILY 03/03/18 08/10/23 mcg-K 50 mcg-lutein 300 mcg tablet (Centrum Silver Women) scopolamine base 1 mg over 3 days 1 patch transdermal Q72H PRN 07/09/20 08/10/23 transdermal patch nausea and vomiting #24 ea montelukast 10 mg tablet 10 mg PO DAILY 01/28/21 08/10/23 topiramate 100 mg tablet 100 mg PO BID 01/28/21 08/10/23 budesonide-formoterol HFA 160 2 puff inhalation DAILY 12/06/22 08/10/23 mcg-4.5 mcg/actuation aerosol inhaler (Symbicort) meclizine 25 mg tablet 25 mg PO TID PRN 03/12/23 08/10/23 trazodone 100 mg tablet 100 mg PO QHS PRN 03/12/23 08/10/23 lurasidone 120 mg tablet (Latuda) 80 mg PO QPM 04/28/23 08/10/23 acetaminophen 500 mg tablet 1,000 mg (2 x 500 mg) PO TID #90 05/13/23 08/10/23 tabs Previous Rx's Medication Instructions Recorded albuterol sulfate 90 mcg/actuation 2 puff inhalation Q4H PRN ##1 07/09/14 aerosol inhaler scopolamine base 1 mg over 3 days 1 patch transdermal Q72H PRN 07/09/20 transdermal patch nausea and vomiting #24 ea acetaminophen 500 mg tablet 1,000 mg (2 x 500 mg) PO TID #90 05/13/23 tabs Allergies Allergy/AdvReac Type Severity Reaction Status Date / Time Penicillins Allergy Severe Anaphylaxsis, Verified 08/10/23 12:44 throat tightness divalproex sodium Allergy Intermediate Verified 08/10/23 12:44 [From Depakote] hydrocodone [From Vicodin] Allergy Intermediate rash Verified 08/10/23 12:44 latex Allergy Verified 08/10/23 12:44 aspirin AdvReac Severe increases Verified 08/10/23 12:44 toxicity combined w/ lithium ibuprofen AdvReac Severe increases Verified 08/10/23 12:44 toxicity combined w/ lithium General Stated Complaint: GenMedical DENNIS: 3 Review of Systems Constitutional Constitutional: Denies chills, Denies fever(s) and Denies poor appetite ENT Ears, Nose, Mouth, and Throat: Reports nasal congestion Cardiovascular Cardiovascular: Denies chest pain and Denies dyspnea Respiratory Respiratory: Denies cough and Denies dyspnea Gastrointestinal Gastrointestinal: Reports as per HPI, Reports abdominal pain, Denies melena, Denies change in bowel habits, Denies constipation, Denies diarrhea, Reports nausea and Reports vomiting Genitourinary Genitourinary: Denies abnormal vaginal bleeding, Denies hematuria, Denies menorrhagia, Denies dysuria, Reports flank pain and Denies vaginal discharge Musculoskeletal Musculoskeletal: Reports back pain Integumentary/Breasts Skin/Breast: Denies rash PFSH All Active Problems (Updated 08/10/23 @ 15:43 by Chris Driver NP) Acute left lower quadrant pain (Acute) Ganglion cyst of volar aspect of right wrist (Acute) S/P Excision: 05/13/2023; 05/14/2021 Contusion of left index finger (Acute) Medical History Tobacco use Periodic limb movement disorder Bipolar 1 disorder (01/08/18) Depression (01/08/18) Obesity (BMI 30.0-34.9) (01/08/18) Environmental allergies Asthma Surgical History Hx of tubal ligation Social History Smoking/Tobacco Use Status: Former Tobacco Use Quit Date: 07/12/22 Smoking risk assessment performed?: Yes Alcohol Intake: current Alcohol Intake frequency: holidays/special occasions only Drug use: Occasionally Substance use type: marijuana Housing: apartment Do you feel safe at home: Yes Do you feel safe in your relationship?: Yes Exam Const General: cooperative Orientation: alert, awake and oriented x3 Resp Effort & Inspection: normal respiratory effort and able to speak in complete sentences Auscultation: clear to auscultation bilaterally Cardio Rate: regular rate Rhythm: regular rhythm Heart Sounds: S1 normal and S2 normal GI Palpation: soft, no hepatosplenomegaly, not firm, no guarding, no masses, no pulsatile masses, not rigid, no splenomegaly and tender in the LLQ Auscultation: normal bowel sounds General: CVA tenderness on the left (mild) Back/Spine/Pelvis Back: no CVA tenderness Neuro General: patient alert, patient awake, patient oriented x3, gait normal and moves all extremities Course Vital Signs Vital signs: Vital Signs Temperature 36.6 C 08/10/23 12:39 Pulse 77 08/10/23 12:39 Respiratory Rate 20 08/10/23 12:39 Blood Pressure 138/80 08/10/23 12:39 Pulse Oximetry 97 08/10/23 12:39 Temperature 36.6 C 08/10/23 12:46 Temperature Source Oral 08/10/23 12:46 Pulse 77 08/10/23 12:46 Respiratory Rate 16 08/10/23 12:50 Respiratory Effort Normal, Non-Labored 08/10/23 12:50 Respiratory Depth Normal 08/10/23 12:50 Respiratory Pattern Normal 08/10/23 12:50 Blood Pressure 138/80 08/10/23 12:46 Blood Pressure Position Sitting 08/10/23 12:46 Pulse Oximetry 97 08/10/23 12:46 Oxygen Delivery Method Room Air 08/10/23 12:46 Oxygen Flow Rate 0 08/10/23 12:46 Pain Level 5 08/10/23 12:46 Lab/Test Results Lab/Test Results: Laboratory Tests Range/Units 08/10/23 08/10/23 13:16 13:30 WBC (4.4-10.8) 10^3/uL 8.84 RBC (3.93-5.22) 10^6/uL 4.43 Hgb (11.2-15.7) g/dL 12.5 Hct (36.0-46.0) % 38.8 MCV (80-95) fL 88 MCH (27.0-33.0) pg 28.2 MCHC (32.0-36.0) % 32.2 RDW (11.7-14.6) % 12.9 Plt Count (130-400) 10^3/uL 332 MPV (8.0-11.0) fL 9.5 Immature Gran % 0.3 Neutrophils % 64.0 Lymphocytes % 24.0 Monocytes % 5.0 Eosinophils % 5.5 Basophils % 1.2 Nucleated RBC % (0.0-0.3) % 0.0 Absolute Neutrophils (1.2-6.7) 10^3/uL 5.65 Absolute Lymphocytes (1.2-3.4) 10^3/uL 2.12 Absolute Monocytes (0.1-0.8) 10^3/uL 0.44 Absolute Eosinophils (0.0-0.7) 10^3/uL 0.49 Absolute Basophils (0.0-0.2) 10^3/uL 0.11 Urine Color (Yellow) Yellow Urine Clarity (Clear) Sl Cloudy Urine pH (5-8) 5.5 Ur Specific [place] (1.005-1.025) >= 1.030 H Urine Protein (Negative) mg/dL 30 H Urine Ketones (Negative) mg/dL Negative Urine Blood (Negative) Moderate H Urine Nitrite (Negative) Negative Urine Bilirubin (Negative) Negative Urine Urobilinogen (Up to 0.2) mg/dL 0.2 Ur Leukocyte Esterase (Negative) Negative Urine RBC (0-2) HPF 10-20 H Urine WBC (0-5) HPF 0-2 Ur Epithelial Cells (Negative) HPF Many Urine Crystals (Negative) HPF Negative Urine Bacteria (Negative) HPF Moderate Urine Casts (Negative) LPF Negative Urine Mucus (Negative) Heavy Ur Culture Indicated? No/Sq. Contamination Urine Glucose (Negative) mg/dL Negative POC- Test(urine) Negative
--- NOTE | 2023-08-10 14:00 | DI.US_ITS ---
Exam(s) US PELVIS TRANSVAGINAL EXAM: US PELVIS TRANSVAGINAL CLINICAL HISTORY: LLQ/Pelvic pain TECHNIQUE: Transabdominal and transvaginal imaging was performed using standard protocol. COMPARISON: CT CT RENAL COLIC WO from 08/10/2023 FINDINGS: UTERUS: Retroverted 9.3 x 5.7 x 6.6 cm Endometrium: 6 mm Myometrium: No discrete fibroids. Cervix: Unremarkable. OVARIES: Right: Cyst or mass: None. Left: Cyst or mass: None. DOPPLER: Color: Symmetric and uniform flow to both ovaries. No hyperemia. CUL-DE-SAC: Free fluid: None. IMPRESSION: 1. Enlarged uterus. No discrete fibroids visible. 2. Unremarkable bilateral ovaries. No evidence of torsion. DATA REPOSITORY:
[2023-08-10 14:04] LABS: ALT 26 U/L (14-59); AST 13 U/L (15-37); Albumin 4.3 g/dL (3.4-5.0); Alkaline Phosphatase 49 U/L (46-116); Anion Gap 12.4 mmol/L (3-11); BUN 14 mg/dL (7-18); Bilirubin, Total 0.4 mg/dL (0.2-1.0); CO2 23.6 mmol/L (21.0-32.0); CREATININE 0.9 mg/dL (0.55-1.02); Calcium 9.5 mg/dL (8.5-10.1); Chloride 106 mmol/L (98-107); Estimated GFR 82.37 (mL/min/1.73m2); Glucose 101 mg/dL (74-106); Lipase 32 U/L (16-77); Potassium 3.5 mmol/L (3.5-5.1); Sodium 142 mmol/L (136-145); Total Protein 7.8 g/dL (6.4-8.2)
[2023-08-10 16:00] VITALS: BP 122/68; PULSE 70; RESP 18; O2SAT 99
--- NOTE | 2023-08-10 17:45 | NUR.NOTE ---
Faxed a referral to Kalin Ramon for a recheck of belly pain within a week.
== END 2023-08-10 16:02 | disposition home or self-care (01) ==
PROVIDERS: Emergency Provider Nurse Practitioner Family; PCP Physician Assistant
DX: R10.32 Left lower quadrant pain; J45.909 Unspecified asthma, uncomplicated; E66.9 Obesity, unspecified; Z68.37 Body mass index [BMI] 37.0-37.9, adult; Z98.51 Tubal ligation status; F31.9 Bipolar disorder, unspecified
CPT/HCPCS: 80053; 81025; 83690; 96361; 96374; 96375; 99285; 74176; 76830; 76856; 81003; 81015; 83735; 85025; 99284; J0131; J1885

== ENCOUNTER → 2023-11-05 01:37 | Outpatient (CLI) | payer MEDICAID, SELFPAY ==
--- NOTE | 2023-11-05 | DI.MAMMO_ITS ---
Exam(s) MAMMO SCREENING EXAM: MAMMO SCREENING CLINICAL HISTORY: SCREENING MAMMO FOR BREAST CANCER Z12.31 TECHNIQUE: Bilateral full field digital CC and MLO mammographic images were obtained with 3D tomosyn thesis and utilizing computer aided detection (CAD). COMPARISON: This is a baseline examination. FINDINGS: Masses/Architectural Distortion: There is a well-circumscribed 4 mm nodule in the upper outer quadran t of the left breast. There are no areas of architectural distortion. Microcalcifications: No suspicious pleomorphic-type are seen. Skin Thickening/Nipple Retraction: None. IMPRESSION: 1. 4 mm left breast nodule. 2. This should be further evaluated with a spot compression view. Limited left breast ultrasound mitul uld also be obtained. BI-RADS Category 0 - Assessment Incomplete: Need additional imaging evaluation Breast Density - Category B - Scattered areas of fibroglandular density Breast density category C or D implies that the patient has dense breast tissue. Dense breast tissue is very common and is not abnormal but dense breast tissue can make it harder to find cancer on a ma mmogram. Also, dense breast tissue may increase their breast cancer risk. This information about the result of the mammogram report was provided to the patient to raise their awareness. Use this report when you speak with the patient about their risks for breast cancer, which includes their family hist ory. At that time, you may recommend for more screening tests (Ultrasound or MRI) as they might be us eful based on their risk. A negative radiographic report should not delay biopsy if a dominant or clinically suspicious mass is present. Up to ten percent of cancers are not identified on mammography. A negative report may reinforce clinical impression. Adenosis and dense breasts may obscure an underlying neoplasm. False positive reports average 6 to 10%. Patient will receive a letter notifying them of these results.
== END ==
PROVIDERS: PCP Physician Assistant; Visit Provider Physician Assistant
DX: Z12.31 Encounter for screening mammogram for malignant neoplasm of breast (principal)
CPT/HCPCS: 77063; 77067

== ENCOUNTER → 2023-11-10 00:36 | Outpatient (CLI) | payer MEDICAID, SELFPAY ==
--- NOTE | 2023-11-10 10:35 | DI.MAMMO_ITS ---
Exam(s) MG MAMMO SCREEN CALL BACK UNI US BREAST LT COMPLETE EXAM: MG MAMMO SCREEN CALL BACK UNI-LEFT AND COMPLETE LEFT BREAST ULTRASOUND CLINICAL HISTORY: 4 MM LEFT BREAST NODULE R92.8 ABNL MAMMO. TECHNIQUE: Unilateral LEFT BREAST spot mammographic images obtained with 3D tomosynthesisand utilizi ng computer aided detection (CAD). . Complete LEFT breast Ultrasound was also performed, including all 4 quadrants, the retroareolar regio n, and the ipsilateral axilla. COMPARISON: Prior mammograms were reviewed. This additional imaging was performed due to findings described on the recent screening BASELINE mammogram of 11/05/2023. FINDINGS: DIAGNOSTIC MAMMOGRAM: Additional mammographic views performed todaydoes not dissipate this small nodule. We proceeded with ultrasound... COMPLETE LEFT BREAST ULTRASOUND: Ultrasound performed today reveals no evidence of solid or significant cystic lesions in all 4 quadra nts. There are no ultrasound findings to correspond to the small nodule described on the mammogram. I suspect that this is therefore probably benign intramammary lymph node.. Scanning of the ipsilateral axilla reveals no significant adenopathy. IMPRESSION: 1. No focal ultrasound findings to correspond to the small nodule on the mammogram. This implies th at this nodule is probably a benign intramammary lymph node. Appropriate follow-up as discussed by myself with the patient today is repeat left breast mammogram i n 6 months. The patient was informed of these findings and recommendations by myself prior to leaving the [facility] ent today. BI-RADS Category 3 - 6 month - Probably Benign Finding: Recommend follow-up mammography in 6 months Breast Density - Category B - Scattered areas of fibroglandular density Breast density Category C or D implies that the patient has dense breast tissue. Dense breast tissue can make it harder to find cancer on a mammogram. Dense breast tissue is also associated with an incr eased risk of breast cancer. This information about the result of the mammogram report was provided to the patient to raise their awareness. Use this report when you speak with the patient about their risks for breast cancer, which includes their family history. At that time, you may recommend additional screening tests (Ultrasoun d or MRI) as these tests may add significant information. A negative radiographic report should not delay biopsy if a dominant or clinically suspicious mass is present. Up to ten percent of cancers are not identified on mammography. A negative report may reinforce clinical impression. Adenosis and dense breasts may obscure an underlying neoplasm. False positive reports average 6 to 10%. Patient will receive a letter notifying them of these results.
== END ==
PROVIDERS: PCP Physician Assistant; Visit Provider Physician Assistant
DX: Z12.31 Encounter for screening mammogram for malignant neoplasm of breast (principal); R92.8 Other abnormal and inconclusive findings on diagnostic imaging of breast
CPT/HCPCS: 76642; 77063; 77067

== ENCOUNTER 2023-11-17 04:32 | Outpatient (CLI) | payer SELFPAY ==
[2023-11-17 19:20] LABS: HBs Antibody, Quant >1000.0 mIU/mL (See Note); Hepatitis B Surface Ab Positive (See Note)
[2023-11-17 21:12] LABS: Hepatitis B Surface Ag Negative (Negative)
[2023-11-17 21:40] LABS: Hep B Core Antibody Negative (Negative)
[2023-11-18 10:46] LABS: Varicella IgG Antibody Positive (See Note)
[2023-11-18 10:50] LABS: Measles IgG Antibody Positive (See Note); Mumps Antibody IgG Positive (See Note)
[2023-11-18 10:52] LABS: Rubella IgG Ab (UVM) Positive (See Note)
[2023-11-19 12:09] LABS: TB Interpretation Negative (Negative); TB1 Ag minus Nil 0.01 IU/ml; TB2 Ag minus Nil 0.01 IU/mL
== END 2023-11-17 04:33 | disposition home or self-care (01) ==
LOC: LBO 04:32
PROVIDERS: PCP Physician Assistant; Visit Provider Family Medicine
DX: Z02.1 Encounter for pre-employment examination (principal); Z11.59 Encounter for screening for other viral diseases; Z11.1 Encounter for screening for respiratory tuberculosis; Z01.84 Encounter for antibody response examination
CPT/HCPCS: 36415; 86704; 86706; 86787; 87340; 86480; 86735; 86762; 86765

== ENCOUNTER → 2024-05-10 01:20 | Outpatient (CLI) | payer MEDICAID, SELFPAY ==
--- NOTE | 2024-05-10 | DI.MAMMO_ITS ---
Exam(s) MG MAMMO DIAGNOSTIC UNI EXAM: MG MAMMO DIAGNOSTIC UNI CLINICAL HISTORY: F/U ABNL MAMMO, 6 MO F/U,R92.8,? IMTRAMAMMARY LYMPH NODE TECHNIQUE: Left cc and MLO mammogram images were performed according to the usual protocol includ ing computer analysis with CAD system, tomosynthesis and C-view imaging. COMPARISON: MG MG MAMMO SCREENING from 11/05/2023 MG MG MAMMO SCREEN CALL BACK UNI from 11/10/2023 US US BREAST LT COMPLETE from 11/10/2023 FINDINGS: The left breast is composed of scattered fibroglandular densities, Breast Density category B. No suspicious masses or suspicious microcalcifications are seen. There is a stable lymph node in t he upper outer quadrant. No skin thickening or abnormal axillary lymph nodes are seen. IMPRESSION: BI-RADS Category 1, Negative mammogram Bilateral screening mammography is recommended, due in 6 months. Breast Density - Category B, scattered fibroglandular densities. A negative radiographic report should not delay biopsy if a dominant or clinically suspicious mass is present. Up to ten percent of cancers are not identified on mammography. A negative report may reinforce clinical impression. Adenosis and dense breasts may obscure an underlying neoplasm. False positive reports average 6 to 10%. Patient will receive a letter notifying them of these results.
--- OUTSIDE RECORDS SUMMARY | 2024-05-10 01:21 | XMS_ITS | Referral Summary ---
Author Organization [facility] Address [address] [place] [address] Care Team Providers Care Pipe And Test Supervisor Name Role Phone Chris Bhatt MD Primary Care Provider [phone]- [phone] Allergies Active Allergy Reactions Criticality Noted Date Comments Penicillins 08/15/2010 Medications Medication Sig Dispensed Refills Start Date End Date Status levalbuterol (XOPENEX) 0.63 mg/3 mL nebulization Inhale 0.63 mg as directed every 4 hours as needed. Active budesonide (PULMICORT FLEXHALER) 180 mcg/Inhalation inhaler Inhale 180 mcg as directed 2 times daily. Active Social History Tobacco Use Types Packs/Day Years Used Date Smoking Tobacco: Never Smokeless Tobacco: Never Alcohol Use Standard Drinks/Week Comments No 0 (1 standard drink = 0.6 oz pur e alcohol) Interpersonal Safety Answer Date Record ed Physically Hurt Never 05/13/2020 Verbally Threaten Not on file 05/13/2020 Sex and Gender Information Value Date Recorded Sex Assigned at Not on file Gender Identity Not on file Sexual Orientation Not on file Last Filed Vital Signs Vital Sign Reading Time Taken Comments Blood Pressure 131/79 08/15/2010 0300 EDT Pulse 92 08/15/2010 0459 EDT Temperature 36.1 ??C (97 ??F) 08/15/2010 0300 EDT Respiratory Rate 13 08/15/2010 0459 EDT Oxygen Saturation 98% 08/15/2010 0459 EDT Inhaled Oxygen Concentration - - Weight - - Height - - Body Mass Index - - Plan of Treatment Not on file Care Teams Pipe And Test Supervisor Relationship Specialty Start Date End Date Chris Bhatt MD [address] [place] [address] [place] [id number] PCP - General 08/15/10
--- OUTSIDE RECORDS SUMMARY | 2024-05-10 01:21 | XMS_ITS | Clinical Summary ---
Author Organization [facility] Address [address] [place] [address] Care Team Providers Care Program Coordinator Executive Education Name Role Phone Chris Bhatt MD Primary Care Provider [phone]- [phone] Allergies Active Allergy Reactions Criticality Noted Date Comments Penicillins 08/15/2010 Medications Medication Sig Dispensed Refills Start Date End Date Status levalbuterol (XOPENEX) 0.63 mg/3 mL nebulization Inhale 0.63 mg as directed every 4 hours as needed. Active budesonide (PULMICORT FLEXHALER) 180 mcg/Inhalation inhaler Inhale 180 mcg as directed 2 times daily. Active Medical History Medical History Date Comments Asthma Social History Tobacco Use Types Packs/Day Years [...] on file Sexual Orientation Not on file Obstetrics History Last Filed Vital Signs Vital Sign Reading Time Taken Comments Blood Pressure 131/79 08/15/2010 0300 EDT Pulse 92 08/15/2010 0459 EDT Temperature 36.1 ??C (97 ??F) 08/15/2010 0300 EDT Respiratory Rate 13 08/15/2010 0459 EDT Oxygen Saturation 98% 08/15/2010 0459 EDT Inhaled Oxygen Concentration - - Weight - - Height - - Body Mass Index - - Plan of Treatment Health Maintenance Due Date Last Done Comments Hepatitis C Screen 1982 Hepatitis B Vaccine (1 of 3 - 19+ 3-dose series) 03/25 COVID-19 Vaccine ( season) 2023 Care Teams Program Coordinator Executive Education Relationship Specialty Start Date End Date Chris Bhatt MD [address] [place] [address] [place] [id number] PCP - General 08/15/10
--- OUTSIDE RECORDS SUMMARY | 2024-05-10 01:21 | XMS_ITS | Encounter Summary ---
Author Organization [facility] Address [address] [place] [address] Care Team Providers Care Paper Reel Operator Name Role Phone Chris Bhatt MD Primary Care Provider +1- [phone] Encounter Details Date Type Department Care Team (Late st Contact Info) Description 11/18/2023 Lab Requisition [facility] Pathology & Laboratory Medicine - [facility] [address] [place] [address] Outr Resulting Lab, Provider Social History Tobacco Use Types Packs/Day Years [...] on file Sexual Orientation Not on file documented as of this encounter Plan of Treatment Not on file documented as of this encounter Procedures Procedure Name Priority Date/Time Associated Diagnosis Comments QUANTIFERON MITOGEN (PERFORMABLE) Today 11/17/2023 8:20 EST QUANTIFERON TB2 (PERFORMABLE) Today 11/17/2023 8:20 EST QUANTIFERON TB1 (PERFORMABLE) Today 11/17/2023 8:20 EST QUANTIFERON NIL (PERFORMABLE) Today 11/17/2023 8:20 EST QUANTIFERON INTERPRETATION (PERFORMABLE) Today 11/17/2023 8:20 EST QUANTIFERON TB GOLD PLUS Routine 11/17/2023 8:20 EST documented in this encounter Results * QUANTIFERON INTERPRETATION (PERFORMABLE) (11/17/2023 8:20 EST) Quantiferon Interpretation Negative Negative 11/19/2023 12:03 EST [facility] Comment:No interferon-gamma response to M. tuberculosis antigens was detected. ??Infection with M. tuberculosis is unlikely. A single negative result does not exclude infection with M. tuberculosis. ??In patients at high risk for M. tuberculosis infection, a second test should be considered. TB1 Ag minus Nil 0.01 IU/ml 11/19/19 12:03 EST [facility] TB2 Ag minus Nil 0.01 IU/mL 11/19/19 12:03 EST [facility] Blood VENOUS BLOOD / Unknown 11/17/2023 8:20 EST 11/19/2023 11:57 EST Provider Outr Resulting Lab IMMUNOLOGY A ND SEROLOGY ORDERABLES Performing Organization Address [facility] Co de Phone Number [facility] [address] [place] [address] * QUANTIFERON MITOGEN (PERFORMABLE) (11/17/2023 8:20 EST) Blood VENOUS BLOOD / Unknown 11/17/2023 8:20 EST 11/18/2023 17:00 EST Provider Outr Resulting Lab IMMUNOLOGY A ND SEROLOGY ORDERABLES Performing Organization Address City/[facility]/ZIP Co de Phone Number [facility] [address] [place] [address] * QUANTIFERON TB2 (PERFORMABLE) (11/17/2023 8:20 EST) Blood VENOUS BLOOD / Unknown 11/17/2023 8:20 EST 11/18/2023 17:00 EST Provider Outr Resulting Lab IMMUNOLOGY A ND SEROLOGY ORDERABLES Performing Organization Address [facility]/ZIP Co de Phone Number [facility] [address] [place] [address] * QUANTIFERON TB1 (PERFORMABLE) (11/17/2023 8:20 EST) Blood VENOUS BLOOD / Unknown 11/17/2023 8:20 EST 11/18/2023 17:00 EST Provider Outr Resulting Lab IMMUNOLOGY A ND SEROLOGY ORDERABLES Performing Organization Address [facility]/[place] de Phone Number [facility] [address] [place] [address] * QUANTIFERON NIL (PERFORMABLE) (11/17/2023 8:20 EST) Blood VENOUS BLOOD / Unknown 11/17/2023 8:20 EST 11/18/2023 17:00 EST Provider Outr Resulting Lab IMMUNOLOGY A ND SEROLOGY ORDERABLES Performing Organization Address [facility]/[place] de Phone Number [facility] [address] [place] [address] documented in this encounter Visit Diagnoses Not on filedocumented in this encounter Care Teams Paper Reel Operator Relationship Specialty Start Date End Date Chris Bhatt MD [address] [place] [address] [place] [address] PCP - General 08/15/10 documented as of this encounter
--- OUTSIDE RECORDS SUMMARY | 2024-05-10 01:22 | XMS_ITS | Encounter Summary ---
Author Organization [facility] Address [address] [place] [address] Care Team Providers Care Notching Press Operator Name Role Phone Unavailable Primary Care Provider Unavailabl e Encounter Details Date Type Department Care Team (Late st Contact Info) Description 05/24/2007 Results Only [facility] - [facility] [address] [place] [address] Kevin Mason, [address] [id number] Social History Tobacco Use Types Packs/Day Years Used Date Smoking Tobacco: Never Assessed Sex and Gender Information Value Date Recorded Sex Assigned at Not on file Gender Identity Not on file Sexual Orientation Not on file documented as of this encounter Plan of Treatment Not on file documented as of this encounter Procedures Procedure Name Priority Date/Time Associated Diagnosis Comments CYTOPATHOLOGY Routine 05/24/2007 0:00 EDT documented in this encounter Results * CYTOPATHOLOGY (05/24/2007 0:00 EDT) Pathology Report: CYTOPATHOLOGY REPORT Reports generated via electronic interface contain original data; however they are lacking the format of the original report. Caution should be taken when reading/interpreti ng unformatted reports. Name: ? JANET FONTAINE ? Accession #: ? [id number] : ? 1980 (Age: 27) ??F ?Collect Date: ? 05/24/2007 Location: ? [facility] ? Receive Date: ? 05/26/2007 Provider: ?KEVIN RICHTERM Copy to: ? Specimen/Source: ?ThinPrep Pap Test, Cervix/Endocervix, processed on enymotion ThinPrep Imaging System, with manual evaluation Last Menstrual Period: ? None since delivery Menstrual/Pregnanc y Status: ? Post Hormonal/Contracep tive Status: ? Depo-Provera: Inject. Treatment History: ? Colposcopy: 2005 per pt Other: ? Additional clinical information: Previous pap WNL HPVA - HPV testing requested if ASC-US on the current ThinPrep Pap test. ? SPECIMEN ADEQUACY ? Satisfactory for Evaluation - transformation zone component present - scant squamous epithelial component GENERAL CATEGORIZATION ? Negative for Intraepithelial Lesion or Malignancy ? Document reviewed and electronically signed by: ? Chelsey Pritchard, ROSALINA(ASCP) ? Report Date: ??06/01/2007 10:31 End of Report [facility] MAYORGA 05/24/2007 05/26/2007 Kevin Mason CNM PATHOLOGY YOLANDA VALDIVIA [facility] MAYORGA [address] [place] [address] documented in this encounter Visit Diagnoses Not on filedocumented in this encounter
--- OUTSIDE RECORDS SUMMARY | 2024-05-10 01:22 | XMS_ITS | Encounter Summary ---
Author Organization [facility] Address [address] [place] [address] Care Team Providers Care Host/Hostess Restaurant Name Role Phone Unavailable Primary Care Provider Unavailabl e Encounter Details Date Type Department Care Team (Latest Contact Info) Description 05/02/2008 20:36 EDT - 05/03/2008 11:59 EDT Hospital Encounter [facility] Emergency Department - [facility] [address] [place] [address] Emergency, Default, MD Discharge Disposition: Home or Self Care Social History Tobacco Use Types Packs/Day Years Used Date Smoking Tobacco: Never Assessed Sex and Gender Information Value Date Recorded Sex Assigned at Not on file Gender Identity Not on file Sexual Orientation Not on file documented as of this encounter Discharge Disposition Disposition Code Departure Means Destination Home or Self Care documented in this encounter Plan of Treatment Not on file documented as of this encounter Visit Diagnoses Not on filedocumented in this encounter
--- OUTSIDE RECORDS SUMMARY | 2024-05-10 01:22 | XMS_ITS | Encounter Summary ---
Author Organization [facility] Address [address] [place] [address] Care Team Providers Care Sewing Machine Attachment Tester Name Role Phone Unavailable Primary Care Provider Unavailabl e Encounter Details Date Type Department Care Team (Late st Contact Info) Description 03/19/2001 Results Only [facility] - [place] [facility] [address] [place] [address] Bhavana Albarran CNM [address] [id number] Social History Tobacco Use Types Packs/Day Years Used Date Smoking Tobacco: Never Assessed Sex and Gender Information Value Date Recorded Sex Assigned at Not on file Gender Identity Not on file Sexual Orientation Not on file documented as of this encounter Plan of Treatment Not on file documented as of this encounter Procedures Procedure Name Priority Date/Time Associated Diagnosis Comments CYTOPATHOLOGY Routine 03/19/2001 0:00 EDT documented in this encounter Results * CYTOPATHOLOGY (03/19/2001 0:00 EDT) Pathology Report: CYTOPATHOLOGY REPORT Reports generated via electronic interface contain original data; however they are lacking the format of the original report. Caution should be taken when reading/interpreti ng unformatted reports. Name: ? JANET FONTIANE ? Accession #: ? [id number] : ? 1980 (Age: 20) ??F ?Collect Date: ? 03/19/2001 Location: ? [facility] ? Receive Date: ? 03/23/2001 Provider: ?BHAVANA ALBARRAN CNM Copy to: ? Specimen/Source: ?ThinPrep Pap Test, Cervix/Endocervix Last Menstrual Period: ? 12/27/00 Menstrual/Pregnanc y Status: ? Other: ? Additional clinical information: First pap smear. ? SPECIMEN ADEQUACY ? Satisfactory for evaluation but limited by scant squamous epithelial component secondary to excessive mucus. GENERAL CATEGORIZATION ? Within Normal Limits ? Document reviewed and electronically signed by: ? ROSALINA Barclay(ASCP) ? Report Date: ??2001 11:09 End of Report LEANN MAYORGA 03/19/2001 03/23/2001 Bhavana RICHTERM PATHOLOGY ORDERABLES [facility] [address] [place] [address] documented in this encounter Visit Diagnoses Not on filedocumented in this encounter
--- OUTSIDE RECORDS SUMMARY | 2024-05-10 01:22 | XMS_ITS | Encounter Summary ---
Author Organization [facility] Address [address] [place] [address] Care Team Providers Care Bleach Boiler Puller Name Role Phone Unavailable Primary Care Provider Unavailabl e Encounter Details Date Type Department Care Team (Late st Contact Info) Description 01/06/2002 Results Only [facility] - [place] conversion [address] [place] [address] Mar Kilpatrick, [place], [place] [address] Social History Tobacco Use Types Packs/Day Years Used Date Smoking Tobacco: Never Assessed Sex and Gender Information Value Date Recorded Sex Assigned at Not on file Gender Identity Not on file Sexual Orientation Not on file documented as of this encounter Plan of Treatment Not on file documented as of this encounter Procedures Procedure Name Priority Date/Time Associated Diagnosis Comments CYTOPATHOLOGY Routine 01/06/2002 0:00 EST documented in this encounter Results * CYTOPATHOLOGY (01/06/2002 0:00 EST) Pathology Report: CYTOPATHOLOGY REPORT Reports generated via electronic interface contain original data; however they are lacking the format of the original report. Caution should be taken when reading/interpreti ng unformatted reports. Name: ? JANET FONTAINE ? Accession #: ? [id number] : ? 1980 (Age: 21) ??F ?Collect Date: ? 01/06/2002 Location: ? [facility] ? Receive Date: ? 01/10/2002 Provider: ?MAR RICHTERM Copy to: ? Specimen/Source: ?ThinPrep Pap Test, Cervix/Endocervix Last Menstrual Period: ? 12/27/01 Menstrual/Pregnanc y Status: ? Post ? SPECIMEN ADEQUACY ? Satisfactory for Evaluation - transformation zone component present GENERAL CATEGORIZATION ? Negative for Intraepithelial Lesion or Malignancy ? Document reviewed and electronically signed by: ? ROSALINA Vega(ASCP) ? Report Date: ??01/12/2002 16:33 End of Report LEANN MAYORGA 01/06/2002 01/10/2002 Mar Kilpatrick CNM PATHOLOGY ORDERABLES [facility] MAYOR[facility] [address] [place] [address] documented in this encounter Visit Diagnoses Not on filedocumented in this encounter
--- OUTSIDE RECORDS SUMMARY | 2024-05-10 01:22 | XMS_ITS | Encounter Summary ---
Author Organization [facility] Address [address] [place] [address] Care Team Providers Care Hospital Coordinator Name Role Phone Chris Bhatt MD Primary Care Provider +1- [phone] Encounter Details Date Type Department Care Team (Late st Contact Info) Description 07/22/2019 Results Only [facility]- [facility] [phone] Cooper Gonzalez, [address] [place] [id number] Social History Tobacco Use Types Packs/Day Years Used Date Smoking Tobacco: Never Smokeless Tobacco: Never Alcohol Use Standard Drinks/Week Comments No 0 (1 standard drink = 0.6 oz pur e alcohol) Sex and Gender Information Value Date Recorded Sex Assigned at Not on file Gender Identity Not on file Sexual Orientation Not on file documented as of this encounter Plan of Treatment Not on file documented as of this encounter Procedures Procedure Name Priority Date/Time Associated Diagnosis Comments PAP TEST- RESULT ONLY Routine 07/22/2019 0:00 EDT documented in this encounter Results * PAP TEST- RESULT ONLY (07/22/2019 0:00 EDT) Pathology Report: CYTOPATHOLOGY REPORT Reports generated via electronic interface contain original data; however they are lacking the format of the original report. Caution should be taken when reading/interpreti ng unformatted reports. Name: ? JANET FONTAINE ? Accession #: ? [id number] ? : ? 1980 (Age: 39) ??F ?Collect Date: ? 07/22/2019 ? Location: ? [facility] ? Receive Date: ? 07/25/2019 ? Provider: COOPER YOUNGBLOOD DNP Copy to: ? Final Report SPECIMEN ADEQUACY ? Satisfactory for Evaluation - transformation zone component present GENERAL CATEGORIZATION ? Negative for Intraepithelial Lesion or Malignancy ?? Other: Additional clinical information: Z00.00 Z12.4 Z11.51 FAX - Request for Fax report: [phone] Specimen/Source: ??Pap Test, Cervix, ThinPrep Imaging System with manual evaluation Document reviewed and electronically signed by: ? Chelsey Pritchard, [place](ASCP) ? Report ??Date: 07/26/2019 13:22 HPV with Pap Test ? Date Ordered: ? 07/26/2019 ? Status: ?? Signed Out ?Date Complete: ? 07/28/2019 ? By: ??System Interface ? Date Reported: ? 07/28/2019 ? Interpretation RESULT: Negative for HPV. No E6 or E7 mRNA is detected from HPV types 16,18,31,33,35, 39,45,51,52,56,58, 59,66, and 68 by fill manager mediated amplification. Comments Document reviewed and electronically signed by: ? System Interface ? Report date: 07/28/2019 By the signature above, the attending physician certifies that he/she has personally conducted a gross and/or microscopic examination of the described specimens and rendered or confirmed the above diagnosis. End of Report [facility] 07/22/2019 07/25/2019 Cooper Youngblood DNP PATHOLOGY ORDERAB LES [facility] [address] [place] [address] documented in this encounter Visit Diagnoses Not on filedocumented in this encounter Care Teams Hospital Coordinator Relationship Specialty Start Date End Date Chris Bhatt MD [address] [place] [address] [place] [address] PCP - General 08/15/10 documented as of this encounter
--- OUTSIDE RECORDS SUMMARY | 2024-05-10 01:22 | XMS_ITS | Encounter Summary ---
Author Organization [facility] Address [address] [place] [address] Care Team Providers Care Chefs Name Role Phone Chris Bhatt MD Primary Care Provider +1- [phone] Encounter Details Date Type Department Care Team (Late st Contact Info) Description 11/17/2023 Lab Requisition [facility] Pathology & Laboratory Medicine - [facility] [address] [place] [address] Outr Resulting Lab, Provider Social History Tobacco [...] Procedure Name Priority Date/Time Associated Diagnosis Comments HOLD SST Today 11/17/2023 8:20 EST HEPATITIS B CORE ANTIBODY (TOTAL) Today 11/17/2023 8:20 EST HEPATITIS B SURFACE ANTIBODY Today 11/17/2023 8:20 EST HEPATITIS B SURFACE ANTIGEN Today 11/17/2023 8:20 EST documented in this encounter Results * HOLD SST (11/17/2023 8:20 EST) Hold Hold 11/17/2023 19:01 EST [facility] Blood VENOUS BLOOD / Unknown 11/17/2023 8:20 EST 11/17/2023 18:00 EST Provider Outr Resulting Lab LAB INFO SER VICE AND SUPPORT & PHONE RESULT Performing Organization Address [facility] Co de Phone Number [facility] [address] [place] [address] * HEPATITIS B SURFACE ANTIBODY (11/17/2023 8:20 EST) Hep B Surface Ab, Quantitative >1,000.0 See Note mIU/mL 11/17/2023 19:16 [facility] Comment: Reference Range for Hep B Surface Ab, Quant: Positive: >= 10.0 mIU/mL Negative: ??< 10.0 mIU/mL Patient is presumed to be immune to infection with Hepatitis B Virus. Hep B Surface Ab, Qualitative Positive See Note 11/17/2023 19:16 [facility] Comment: Reference Range for Hep B Surface Ab, Qual: Unvaccinated: ??Negative Vaccinated: ??Positive Blood VENOUS BLOOD / Unknown 11/17/2023 8:20 EST 11/17/2023 17:59 EST Provider Outr Resulting Lab CHEMISTRY & BLOOD GAS ORDERABLES Performing Organization Address [facility] Co de Phone Number [facility] [address] [place] [address] * HEPATITIS B CORE ANTIBODY (TOTAL) (11/17/2023 8:20 EST) Hepatitis B Core Ab, Total Negative Negative 11/17/2023 21:36 EST [facility] Blood VENOUS BLOOD / Unknown 11/17/2023 8:20 EST 11/17/2023 17:59 EST Provider Outr Resulting Lab CHEMISTRY & BLOOD GAS ORDERABLES Performing Organization Address [facility]/ZIP Co de Phone Number [facility] [address] [place] [address] * HEPATITIS B SURFACE ANTIGEN (11/17/2023 8:20 EST) Hep B Surface Ag Negative Negative 11/17/2023 21:06 EST [facility] Blood VENOUS BLOOD / Unknown 11/17/2023 8:20 EST 11/17/2023 17:59 EST Provider Outr Resulting Lab CHEMISTRY & BLOOD GAS ORDERABLES Performing Organization Address City/State/[facility] Co de Phone Number [facility] [address] [place] [address] documented in this encounter Visit Diagnoses Not on filedocumented in this encounter Care Teams Chefs Relationship Specialty Start Date End Date Chris Bhatt MD [address] [place] [address] [place] [address] PCP - General 08/15/10 documented as of this encounter
--- OUTSIDE RECORDS SUMMARY | 2024-05-10 01:22 | XMS_ITS | Encounter Summary ---
Author Organization [facility] Address [address] [place] [address] Care Team Providers Care Plating And Point Assembly Supervisor Name Role Phone Chris Steinre MD Primary Care Provider +1- [phone] Reason for Visit * Reason Comments Asthma Pts son is admitted upstairs, pt did not bring her inhaler from home, awoke tonight with asthma exacerbation. + insp/exp wheezing. Encounter Details Date Type Department Care Team (Late st Contact Info) Description 08/15/2010 2:48 EDT - 08/15/2010 5:[address] [facility] Emergency Department - [address] [id number] Allison Jo MD [address] [place] [address], [facility], Level [address] [place] [address] Emergency, MD Kamron Asthma with exacerbation Discharge Disposition: Home or Self Care Social [...] on file documented as of this encounter Last Filed Vital Signs Vital Sign Reading Time Taken Comments Blood Pressure 131/79 08/15/2010 0300 EDT Pulse 92 08/15/2010 0459 EDT Temperature 36.1 ??C (97 ??F) 08/15/2010 0300 EDT Respiratory Rate 13 08/15/2010 0459 EDT Oxygen Saturation 98% 08/15/2010 0459 EDT Inhaled Oxygen Concentration - - Weight - - Height - - Body Mass Index - - documented in this encounter Discharge Instructions * Discharge Instructions* Jose Mccarthy MD - 08/15/2010 4:38 EDT Images from the original note were not included. [facility] Patient Instructions Asthma Attack: After Your Visit to the Emergency Room Your Care Instructions During an asthma attack, your airways swell and narrow. This makes it hard to breathe. Severe asthma attacks can be life-threatening, but you can help prevent them by keeping your asthma under control and treating symptoms before they get bad. Even though you have been released from the emergency room, you still need to watch for any problems. The doctor carefully checked you. But sometimes problems can develop later. If you have new symptoms, or if your symptoms do not get better, return to the emergency room or call your doctor right away. A visit to the emergency room is only one step in your treatment. Even if you feel better, you still need to do what your doctor recommends, such as going to all suggested follow-up appointments and taking medicines exactly as directed. This will help you recover and help prevent future problems. How can you care for yourself at home? ?? Learn how to use your inhaler correctly. If you were given a spacer to use with your inhaler, use it exactly as your doctor showed you. Spacers help asthma medicine work better. ?? Follow your asthma action plan to prevent attacks. If you do not have an asthma action plan, work with your doctor to build one. ?? Take your asthma medicine correctly. Talk to your doctor right away if you have any questions about what to take and how to take it. ?? Use your quick-relief medicine when you have symptoms of an attack. Your quick-relief medicine may include an albuterol inhaler or corticosteroid pills (such as prednisone). ?? Take your controller medicine every day. Controller medicine is usually an inhaled corticosteroid that helps prevent problems before they occur. Do not use your controller medicine to try to treatan attack that has already started. It does not work fast enough to help. ?? Keep your medicines with you at all times. ?? Learn how to use a peak flow meter to measure how open your airways are. This will help you knowwhen your asthma is getting worse before it gets severe. Coughing, wheezing, and having trouble breathing mean that your asthma may be getting out of control. ?? See your doctor regularly. These visits will help you learn more about asthma and what you can do to control it. Your doctor will monitor your treatment to make sure the medicine is helping you. ?? Keep track of your asthma attacks and your treatment. After you have had an attack, write down what triggered it, what helped end it, and any concerns you have about your asthma action plan. Take your diary when you see your doctor. You can then review your asthma action plan and decide if it isworking. ?? Take your peak flow meter with you when you visit your doctor. Together, you can review the way you use it. Also take your spacer if you have one. ?? Do not smoke. Avoid smoky places. ?? Learn what triggers an asthma attack for you, and avoid the triggers when you can. Common triggers are colds, smoke, air pollution, pollen, animal dander, cockroaches, stress, food additives, and cold air. ?? Talk to your doctor before you use other medicines. Some medicines, such as aspirin, can cause asthma attacks in some people. When should you call for help? Call 911 if: ?? You have severe trouble breathing. ?? You have other symptoms that you think are a medical emergency. Return to the emergency room now if: ?? Your symptoms do not get better after you have followed your asthma action plan. ?? You cough up new yellow, dark brown, or bloody mucus. ?? Your coughing and wheezing get worse. Call your doctor today if: ?? You are not steadily improving after your emergency room visit. ?? You need to use quick-relief medicine on more than 2 days a week (unless it is just for exercise). ?? You have any problems with your asthma medicine. ?? You need help figuring out what is triggering your asthma attacks. Where can you learn more? Go to www.[employer].net/fahc Enter B821 in the search box to learn more about Asthma Attack: After Your Visit to the Emergency Room. ?? 2005 - 2008 [employer]. Care instructions adapted under license by [facility] . This care instruction is for use with your licensed healthcare professional. If you have questions about a medical condition or this instruction, always ask your healthcare professional. [employer] disclaims any warranty or liability for your use of this information. documented in this encounter Medications at Time of Discharge Medication Sig Dispensed Refills Start Date End Date budesonide (PULMICORT FLEXHALER) 180 mcg/Inhalation inhaler Inhale 180 mcg as directed 2 times daily. levalbuterol (XOPENEX) 0.63 mg/3 mL nebulization Inhale 0.63 mg as directed every 4 hours as needed. documented as of this encounter Discharge Disposition Disposition Code Departure Means Destination Home or Self Care documented in this encounter ED Notes * Allison Jo MD - 08/15/2010 2104 EDT DOS: 08/15/2010 Chief Complaint Patient presents with ??? Asthma Pts son is admitted upstairs, pt did not bring her inhaler from home, awoke tonight with asthma exacerbation. + insp/exp wheezing. The patient is a 30 y.o. female who presents today with Asthma HPI Comments: I performed a history and exam of Janet Fontaine and discussed the case with theresident. I reviewed this individual's note and I concur with the documented findings and plan of care. Asthma Review of Systems Past Medical History Diagnosis Date ??? Asthma History reviewed. No pertinent past surgical history. Allergies Allergen Reactions ??? Penicillins History Substance Use Topics ??? Tobacco Use: Never ??? Alcohol Use: No History reviewed. No pertinent family history. Vital Signs Temp: 36.1 ??C (97 ??F) Temp src: Oral Pulse: 92 Resp: 13 SpO2: 98 % BP: 131/79 mmHg BP Device: BP Machine Patient Position: Sitting O2 Device: None (Room air) Physical Exam Radiology orders: None Procedures ED Course: Patient here with son, admitted upstairs. Forgot inhaler. Improved with 1 neb - do not feel steroids indicated at this time. Has spacer at home and knows how to use. Given MDI with spacer, sxs to monitor for given and patient agrees to return for worsening sxs. Comfortable with discharge. Discharge Prescriptions New Prescriptions No Discharge Prescriptions for this patient MDM 4 Condition: improved 1. Asthma with exacerbation (493.92C) PCP: CHRIS STEINER MD 08/15/2010 21:05 * Rafy Vargas RN - 08/15/2010 0500 EDT Spacer provided * Rafy Vargas RN - 08/15/2010 0330 EDT Care assumed and report received. Pt awaiting re evaluation and dispo. * Aundrea Cochran RN - 08/15/2010 0310 EDT Pt placed on continuous SpO2 monitoring upon arrival, Duoneb started. documented in this encounter Miscellaneous Notes * ED Resident - Jose Mccarthy MD - 08/15/2010 0712 EDT DOS: 08/15/2010 Chief Complaint Patient presents with ??? Asthma Pts son is admitted upstairs, pt did not bring her inhaler from home, awoke tonight with asthma exacerbation. + insp/exp wheezing. The patient is a 30 y.o. female who presents today with Asthma The history is provided by the patient. Asthma This is a recurrent problem. The problem occurs intermittently.The current episode started less than 1 hour ago. The problem has not changed since onset. Associated symptoms include wheezing. Pertinent negatives include no fever, no headaches, no sputum production, no chest pain and no syncope. It is unknown what precipitated the problem. She has tried nothing for the symptoms. She has had no prior hospitalizations. She has had no prior ED visits. She has had no prior ICU admissions. Associatedmedical issues include asthma. Review of Systems Constitutional: Negative for fever. Respiratory: Positive for wheezing. Negative for sputum production. Cardiovascular: Negative for chest pain and syncope. Neurological: Negative for headaches. All other systems reviewed and are negative. Past Medical History Diagnosis Date ??? Asthma History reviewed. No pertinent past surgical history. Allergies Allergen Reactions ??? Penicillins History Substance Use Topics ??? Tobacco Use: Never ??? Alcohol Use: No History reviewed. No pertinent family history. Vital Signs Temp: 36.1 ??C (97 ??F) Temp src: Oral Pulse: 92 Resp: 13 SpO2: 98 % BP: 131/79 mmHg BP Device: BP Machine Patient Position: Sitting O2 Device: None (Room air) Physical Exam Nursing note and vitals reviewed. Constitutional: She is oriented to person, place, and time. She appears well- developed and well-nourished. HENT: Head: Normocephalic and atraumatic. Cardiovascular: Normal rate and regular rhythm. Pulmonary/Chest: Effort normal. She has wheezes. Abdominal: Soft. Bowel sounds are normal. Neurological: She is alert and oriented to person, place, and time. Skin: Skin is warm and dry. Psychiatric: Her behavior is normal. Radiology orders: None Procedures ED Course: Pt w/ exac of asthma. Pt's son is hospitalized here and she left home in a hurry without inhalers. Wheezing, relieved by duoneb. Breathing easily after one treatment without wheezes. Given MDI x 1 Rx, d/c to self-care with instruction to return for worsening dyspnea not responsive to rescue inhaler. Discharge Prescriptions New Prescriptions No Discharge Prescriptions for this patient MDM 1. Asthma with exacerbation (493.92C) PCP: CHRIS STEINER MD 08/15/2010 7:12 * Scanned Note-Null - Inpatient, Physician - 08/15/2010 0000 EDT documented in this encounter Plan of Treatment Not on file documented as of this encounter Visit Diagnoses Diagnosis Asthma with exacerbation Unspecified asthma, with exacerbation documented in this encounter Administered Medications Inactive Administered Medications - up to 3 most recent administrations Medication Order MAR Action Action Date Dose Rate Site albuterol (PROVENTIL HFA, VENTOLIN HFA) inhaler 2 Puff 2 Puff, inhalation, NOW X1, 1 dose, On Ellie 08/15/10 at 0500, STAT Given 08/15/2010 4:59 EDT 2 Puffs albuterol-ipratropium (DUO-NEB) 0.5 mg-3 mg(2.5 mg base)/3 mL nebulizer solution 3 mL 3 mL, nebulization, NOW X1, 1 dose, On Ellie 08/15/10 at 0330, STAT Given 08/15/2010 3:05 EDT 3 mL documented in this encounter Historical Medications * This list may reflect changes made after this encounter. Medication Sig Dispensed Refills Start Date End Date budesonide (PULMICORT FLEXHALER) 180 mcg/Inhalation inhaler Inhale 180 mcg as directed 2 times daily. levalbuterol (XOPENEX) 0.63 mg/3 mL nebulization Inhale 0.63 mg as directed every 4 hours as needed. added in this encounter Active and Recently Administered Medications Times are shown in EDT. Scheduled Medication Order 08/13/2010 08/14/2010 08/15/2010 albuterol (PROVENTIL HFA, VENTOLIN HFA) inhaler 2 Puff (COMPLETED) 2 Puff, inhalation, NOW X1, 1 dose, On Ellie 08/15/10 at 0500, STAT 0459 (Given - Provid er: Rafy Vargas RN) albuterol-ipratropium (DUO-NEB) 0.5 mg-3 mg(2.5 mg base)/3 mL nebulizer solution 3 mL (COMPLETED) 3 mL, nebulization, NOW X1, 1 dose, On Ellie 08/15/10 at 0330, STAT 0305 (Given - Provid er: Aundrea Cochran RN) documented in this encounter Care Teams Plating And Point Assembly Supervisor Relationship Specialty Start Date End Date Chris Steiner MD [address] [place] [address] [place] [id number] PCP - General 08/15/10 documented as of this encounter
--- OUTSIDE RECORDS SUMMARY | 2024-05-10 01:22 | XMS_ITS | Encounter Summary ---
Author Organization [facility] Address [address] [place] [address] Care Team Providers Care Rug Designer Name Role Phone Unavailable Primary Care Provider Unavailabl e Encounter Details Date Type Department Care Team (Late st Contact Info) Description 05/02/2008 Office Visit [facility] [address] [place] [address] Alexa Mckeon PA Social History Tobacco Use Types Packs/Day Years Used Date Smoking Tobacco: Never Assessed Sex and Gender Information Value Date Recorded Sex Assigned at Not on file Gender Identity Not on file Sexual Orientation Not on file documented as of this encounter Progress Notes * Alexa Mckeon PA - 11/30/2009 1039 EST Department - Physician Summary Registration Date/Time: 05/02/2008 20:36 Time Seen: 00:14; initial patient contact, initial documentation. Arrived- By private vehicle. Historian- patient. HISTORY OF PRESENT ILLNESS Chief Complaint- Injury to the left great toe. The injury happened just prior to arrival. (fahc). opened door over toe. seen in ft by angelica hutchison. digital block done at that time. Patient is experiencing moderatepain. No other injury. REVIEW OF SYSTEMS The patient complains of pain on weight bearing. No swelling, tingling, weakness, numbness or suspected foreign body. No skin laceration. PAST HISTORY See nurses notes. Medications: The patient's medications have been reviewed. Allergies: No known drug allergies. ADDITIONAL NOTES The nursing notes have been reviewed. PHYSICAL EXAM Appearance: Alert. Oriented X3. Patient in mild distress. Vital Signs: Have been reviewed. Head: Head atraumatic. Extremities: Left great toe: moderate tenderness of the nail bed. Neurovascular intact distally (partial avulsion of nail). No erythema, swelling, laceration, abrasion or ecchymosis. No puncture wound or deformity. No limitation in movement. No subungual hematoma or amputation. No signs of infection present in the feet or ankles. Extremities otherwise negative. Neuro, Vascular and Tendons: Vascular status intact. Motor intact. Neuro: Oriented X 3. PROGRESS AND PROCEDURES Nail Injury Note: Location- Left great toe. Anesthesia provided by digital block. Wound irrigated with normal saline. Mild debridement performed. Stent applied using reinserted nail and secured with suture. 3 sutures 3-0 ethilon to affix nail. Wound dressing applied. Nonail bed injury noted. ED Attending on duty and available for supervision: Frances Phillip. Disposition: Condition: good. Discharged home. Discharged home in improved condition. CLINICAL IMPRESSION Partial nail avulsion to left great toe. INSTRUCTIONS Your Current Medications: Your current home medications have been reviewed by the Emergency Department physician housekeeper/laundry assistant. Continue taking the following medications: (depression med. OTC Medications: Take acetaminophen (Tylenol, Datril, etc.) and ibuprofen (Advil, Nuprin, etc.) according to label instructions. Available over the counter. Follow-up: Follow up with your doctor for suture removal in one week. Understandingof the discharge instructions verbalized by patient. (Electronically signed by Maximilian Serrato 05/03/2008 5:39) Department - Nursing Summary Registration Date/Time: 05/02/2008 20:36 TRIAGE Initial Assessment Triage time 20:37. Acuity: LEVEL 5. BP: 126 / 73. HR: 84. RR: 16. Temp: 36.2 tympanic. Alert. No acute distress. --2038 Jami Smith. Medications (depression med). --2038 Jami Smith. Allergies No known drug allergies. --2038 Jami Smith. History Chief Complaint: INJURY TO LEFT GREAT TOE. This occurred just prior to arrival. Mechanism of injury: a blow (pulled hospital door over toe). Pain level now: 6/10. PAST HX:Tetanus status: more than 5 years ago. (depression). SOCIAL HX: Nonsmoker. No alcohol use. Arrived by private vehicle and accompanied by family. Historian: patient. --2038 Jeromy Smith R.N.. NURSING PROGRESS NOTES (ANGELICA Tang in to see pt). The patient is calm and resting quietly. Patient reports current pain level as 0/10. Pain level (reports her toe has been numbed up). --2357 Janet Barry R.N. TYLENOL 975 mg PO. IBUPROFEN 600 mg PO. The patient is calm and resting quietly. Patient reports current pain level as 1/10. --41 Janet Barry R.N. late entry - 39. Clean bulky dressing applied, following the application of antibiotic ointment. Secured with tape and kerlix. --112 Jeromy Smith R.N.. DISPOSITION / DISCHARGE BP: 136 / 95. HR: 83 regular. RR: 18 regular. Temp. O2 saturation: 99% room air. Condition at departure: improved and stable. Patient reports pain level on departure as 1/10. No learning barriers present. Discharge instructions reviewed with the patient. Reviewed warnings. Reviewed medication. Treatments reviewed. Reviewed referrals. Patient verbalized understanding. Written instructions providedin [place]. The patient was discharged (staying on B5 with son who is an inpatient) and unaccompanied at time of discharge. The patient left the Emergency Department ambulatory. Departure time: 00:48. --47 Janet Barry R.N.. Jeromy Barry R.N. Locked/Released at 05/03/2008 1:13 by Jeromy Smith R.N. documented in this encounter Plan of Treatment Not on file documented as of this encounter Visit Diagnoses Not on filedocumented in this encounter
--- OUTSIDE RECORDS SUMMARY | 2024-05-10 01:22 | XMS_ITS | Encounter Summary ---
Author Organization [facility] Address [address] [place] [address] Care Team Providers Care Lacing Operator Name Role Phone Chris Bhatt MD Primary Care Provider +1- [phone] Encounter Details Date Type Department Care Team (Late st Contact Info) Description 05/04/2015 Results Only [facility] [phone] David Penn MD [address] [place] [phone] Social History Tobacco Use Types Packs/Day Years [...] Procedure Name Priority Date/Time Associated Diagnosis Comments SURGICAL PATHOLOGY Routine 05/04/2015 18 :44 EDT documented in this encounter Results * SURGICAL PATHOLOGY (05/04/2015 18:44 EDT) Pathology Report: SURGICAL PATHOLOGY REPORT Reports generated via electronic interface contain original data; however they are lacking the format of the original report. Caution should be taken when reading/interpret ing unformatted reports. Name: ? JANET FONTAINE ? Accession #: ? [id number] ? : ? 1980 (Age: 35) ??F ? Collect Date: ? 05/04/2015 ? Location: ? [facility] ? Receive Date: ? 05/04/2015 ? Provider: DAVID PENN MD Copy to: AKBAR FINN PAC ? Final Pathologic Diagnosis: VOLAR TISSUE, RIGHT WRIST, RESECTION: - ??Focally epithelium-lined cyst, favor synovial cyst. Document reviewed and electronically signed by: Sundar Shelton MD Report ??Date: 05/08/2015 12:26 By the signature above, the attending physician certifies that he/she has personally conducted a gross and/or microscopic examination of the described specimens and rendered or confirmed the above diagnosis. Specimen(s) Received: Ganglion cyst volar region R wrist Clinical History: Volar ganglion cyst Gross Description: ? Received in formalin labelled with proper patient identification (initials A, S) and ganglion cyst R wrist is a smooth walled cystic structure (1.2 x 1.1 x 0.3 cm) filled with thick mucin. Attached is a minimal amount of adipose tissue. The specimen is serially sectioned and submitted entirely in block 1. 05/07/2015 9:38 AM End of Report [facility] 05/04/2015 18:4 4 EDT 05/04/2015 18:44 EDT David Penn MD PATHOLOGY ORDERABLE S [facility] [address] [place] [address] documented in this encounter Visit Diagnoses Not on filedocumented in this encounter Care Teams Lacing Operator Relationship Specialty Start Date End Date Chris Bhatt MD [address] [place] [address] [place] [id number] PCP - General 08/15/10 documented as of this encounter
--- OUTSIDE RECORDS SUMMARY | 2024-05-10 01:22 | XMS_ITS | Encounter Summary ---
Author Organization [facility] Address [address] [place] [address] Care Team Providers Care Final Operations Technician Name Role Phone Chris Bhatt MD Primary Care Provider +1- [phone] Encounter Details Date Type Department Care Team (Late st Contact Info) Description 11/17/2023 Lab Requisition [facility] Pathology & Laboratory Medicine - [facility] [address] [place] [address] Outr Resulting Lab, Provider Social History Tobacco [...] Comments HOLD SST Today 11/17/2023 8:20 EST MEASLES IGG AB Today 11/17/2023 8:20 EST RUBELLA IGG ANTIBODY Today 11/17/2023 8:20 EST VARICELLA IGG ANTIBODY Today 11/17/2023 8:20 EST MUMPS ANTIBODY IGG Today 11/17/2023 8:20 EST documented in this encounter Results * HOLD SST (11/17/2023 8:20 EST) Hold Hold 11/17/2023 19:01 EST [facility] Blood VENOUS BLOOD / Unknown 11/17/2023 8:20 EST 11/17/2023 18:00 EST Provider Outr Resulting Lab LAB INFO SER VICE AND SUPPORT & PHONE RESULT Performing Organization Address [facility]/ZIP Co de Phone Number [facility] [address] [place] [address] * MEASLES IGG AB (11/17/2023 8:20 EST) Measles IgG Ab Positive See Note 11/18/2023 10:45 EST [facility] Comment:Presence of detectab le measles virus IgG antibodies. Blood VENOUS BLOOD / Unknown 11/17/2023 8:20 EST 11/17/2023 17:59 EST Provider Outr Resulting Lab IMMUNOLOGY A ND SEROLOGY ORDERABLES Performing Organization Address [facility] Co de Phone Number [facility] [address] [place] [address] * VARICELLA IGG ANTIBODY (11/17/2023 8:20 EST) Varicella IgG Ab Positive See Note 11/18/2023 10:41 EST [facility] Comment:Presence of detectab le Varicella Zoster virus IgG antibodies. Blood VENOUS BLOOD / Unknown 11/17/2023 8:20 EST 11/17/2023 17:59 EST Provider Outr Resulting Lab IMMUNOLOGY A ND SEROLOGY ORDERABLES Performing Organization Address City/[facility]/ZIP Co de Phone Number [facility] [address] [place] [address] * MUMPS ANTIBODY IGG (11/17/2023 8:20 EST) Mumps Antibody IgG Positive See Note 11/18/2023 10:46 EST [facility] Comment:Presence of detectab le mumps virus IgG antibodies. Blood VENOUS BLOOD / Unknown 11/17/2023 8:20 EST 11/17/2023 17:59 EST Provider Outr Resulting Lab IMMUNOLOGY A ND SEROLOGY ORDERABLES Performing Organization Address City/[facility] Co de Phone Number [facility] [address] [place] [address] * RUBELLA IGG ANTIBODY (11/17/2023 8:20 EST) Rubella IgG Ab Positive See Note 11/18/2023 10:48 EST [facility] Comment:Positive for IgG ant ibodies to Rubella virus. Blood VENOUS BLOOD / Unknown 11/17/2023 8:20 EST 11/17/2023 17:59 EST Provider Outr Resulting Lab CHEMISTRY & BLOOD GAS ORDERABLES Performing Organization Address [facility] de Phone Number [facility] [address] [place] [address] documented in this encounter Visit Diagnoses Not on filedocumented in this encounter Care Teams Final Operations Technician Relationship Specialty Start Date End Date Chris Bhatt MD [address] [place] [address] [place] [phone] PCP - General 08/15/10 documented as of this encounter
--- OUTSIDE RECORDS SUMMARY | 2024-05-10 01:22 | XMS_ITS | Encounter Summary ---
Author Organization [facility] Address [address] [place] [address] Care Team Providers Care Screwmaker Automatic Name Role Phone Chris Bhatt MD Primary Care Provider +1- [phone] Encounter Details Date Type Department Care Team (Latest Contact Info) Description 05/04/2015 15:27 EDT - 05/04/2015 23:59 EDT Hospital Encounter [address] [address] Unknown, Provider, Discharge Disposition: Home or Self Care Social [...] on file documented as of this encounter Medications at Time of Discharge Medication Sig Dispensed Refills Start Date End Date budesonide (PULMICORT FLEXHALER) 180 mcg/Inhalation inhaler Inhale 180 mcg as directed 2 times daily. levalbuterol (XOPENEX) 0.63 mg/3 mL nebulization Inhale 0.63 mg as directed every 4 hours as needed. documented as of this encounter Discharge Disposition Disposition Code Departure Means Destination Home or Self [facility]itentiary documented in this encounter Plan of Treatment Not on file documented as of this encounter Visit Diagnoses Not on filedocumented in this encounter Care Teams Screwmaker Automatic Relationship Specialty Start Date End Date Chris Bhatt MD [address] [place] [address] [place] [phone] PCP - General 08/15/10 documented as of this encounter
--- OUTSIDE RECORDS SUMMARY | 2024-05-10 01:22 | XMS_ITS | Encounter Summary ---
Author Organization [facility] Address [address] [place] [address] Care Team Providers Care Quilting Machine Operator Name Role Phone Unavailable Primary Care Provider Unavailabl e Encounter Details Date Type Department Care Team (Late st Contact Info) Description 02/12/2010 Results Only [facility]- [facility] [phone] Ernesto Preston APRN [address] [place] [address] [address] [place], [place] [id number] Social History Tobacco Use Types Packs/Day Years Used Date Smoking Tobacco: Never Assessed Sex and Gender Information Value Date Recorded Sex Assigned at Not on file Gender Identity Not on file Sexual Orientation Not on file documented as of this encounter Plan of Treatment Not on file documented as of this encounter Procedures Procedure Name Priority Date/Time Associated Diagnosis Comments HPV DETECTION, HIGH RISK TYPES Routine 02/12/2010 10:08 EDT CYTOPATHOLOGY Routine 02/12/2010 0:00 EDT documented in this encounter Results * HUMAN PAPILLOMA VIRUS DNA TEST (02/12/2010 10:08 EDT) Specimen Description Cervix, ThinPrep vial [facility] Result Negative for HPV types 16, 18, 31, 33, 35, 39, 45, 51, 52, 56, 58, 59, and 68. [facility] Report Status Final 02/26/2010 [facility] 02/12/2010 10:0 8 EDT 02/22/2010 10:08 EDT Ernesto Preston APRN MICROBIOLOGY - GENER AL ORDERABLES [facility] [address] [place] [address] * CYTOPATHOLOGY (02/12/2010 0:00 EDT) Pathology Report: CYTOPATHOLOGY REPORT ? Reports generated via electronic interface contain original data; ? however they are lacking the format of the original report. ? Caution should be taken when reading/interpreti ng unformatted reports. ? Name: ? JANET FONTAINE ? Accession #: ? [id number] ? : ? 1980 (Age: 29) ??F ?Collect Date: ? 02/12/2010 ? Location: ? [facility] ? Receive Date: ? 02/14/2010 ? Provider: ?ERNESTO O PRESTON IRON PELLET TESTER ? Copy to: ? Specimen/Source: ?Pap Test, Cervix, ThinPrep Imaging System with manual ?? evaluation ? Last Menstrual Period: ? 03/28/10 ? Other: ? HPVDX - HPV testing requested regardless of diagnosis on current ThinPrep Pap ?? test. ? SPECIMEN ADEQUACY ? Satisfactory for Evaluation ? - transformation zone component present ? GENERAL CATEGORIZATION ? Negative for Intraepithelial Lesion or Malignancy ? Document reviewed and electronically signed by: ? Iva Tom, CT(ASCP) ? Report Date: ??02/21/2010 12:53 ? End of Report ? [facility] 02/12/2010 02/14/2010 Ernesto Preston SAP ARCHITECT PATHOLOGY ORDERABLES [facility] [address] [place] [address] documented in this encounter Visit Diagnoses Not on filedocumented in this encounter
--- OUTSIDE RECORDS SUMMARY | 2024-05-10 01:22 | XMS_ITS | Encounter Summary ---
Author Organization [facility] Address [address] [place] [address] Care Team Providers Care Continuous Process Tanner Rotary Drum Name Role Phone Unavailable Primary Care Provider Unavailabl e Encounter Details Date Type Department Care Team (Late st Contact Info) Description 03/30/2007 13:42 EDT Hospital Encounter [facility] [place] [address] [place] [address] Geraldine Marroquin MD [address] [facility], [address] [place] [address] Social History Tobacco Use Types Packs/Day Years [...] Procedure Name Priority Date/Time Associated Diagnosis Comments INTERMEDIATE BIOPHYSICAL PROFILE 03/30/2007 16:55 EDT documented in this encounter Results * INTERMEDIATE BIOPHYSICAL PROFILE (03/30/2007 16:55 EDT) Anatomical Region Laterality Modality Other 03/30/2007 16:5 5 EDT Narrative 04/11/2009 11:27 EDT BPP/DOPPLER/GROWTH, WITH NST Please refer to the separate [facility] report. ??Contact Maternal Medicine. Procedure Note Phil Jc MD - 04/11/2009 BPP/DOPPLER/GROWTH, WITH NST Please refer to the separate [facility] report. Contact Maternal Medicine. Ciera Mason CNM [facility] ORDER TIEN documented in this encounter Visit Diagnoses Not on filedocumented in this encounter
--- OUTSIDE RECORDS SUMMARY | 2024-05-10 01:22 | XMS_ITS | Encounter Summary ---
Author Organization [facility] Address [address] [place] [address] Care Team Providers Care Traveling Representative Name Role Phone Unavailable Primary Care Provider Unavailabl e Encounter Details Date Type Department Care Team (Late st Contact Info) Description 01/11/2003 Results Only [facility] - [facility] [address] [place] [address] Mar Payne, [place], [place] [id number] Social History Tobacco Use Types Packs/Day Years Used Date Smoking Tobacco: Never Assessed Sex and Gender Information Value Date Recorded Sex Assigned at Not on file Gender Identity Not on file Sexual Orientation Not on file documented as of this encounter Plan of Treatment Not on file documented as of this encounter Procedures Procedure Name Priority Date/Time Associated Diagnosis Comments CYTOPATHOLOGY Routine 01/11/2003 0:00 EST documented in this encounter Results * CYTOPATHOLOGY (01/11/2003 0:00 EST) Pathology Report: CYTOPATHOLOGY REPORT Reports generated via electronic interface contain original data; however they are lacking the format of the original report. Caution should be taken when reading/interpreti ng unformatted reports. Name: ? JANET FONTAINE ? Accession #: ? [id number] : ? 1980 (Age: 22) ??F ?Collect Date: ? 01/11/2003 Location: ? [facility] ? Receive Date: ? 01/13/2003 Provider: ?MAR PAYNE CNM Copy to: ? Specimen/Source: ?ThinPrep Pap Test, Cervix/Endocervix Last Menstrual Period: ? 12/30/02 Hormonal/Contracep tive Status: ? Yes: Ortho Evra patch ? SPECIMEN ADEQUACY ? Satisfactory for Evaluation - transformation zone component present GENERAL CATEGORIZATION ? Negative for Intraepithelial Lesion or Malignancy ? Document reviewed and electronically signed by: ? Marilu Adorno, ROSALINA(ASCP) ? Report Date: ??01/18/2003 08:42 End of Report [facility] 01/11/2003 01/13/2003 Mar Payne CNM PATHOLOGY ORDERABLES [facility] [address] [place] [address] documented in this encounter Visit Diagnoses Not on filedocumented in this encounter
--- OUTSIDE RECORDS SUMMARY | 2024-05-10 01:22 | XMS_ITS | Encounter Summary ---
Author Organization [facility] Address [address] [place] [address] Care Team Providers Care Rehab Manager Name Role Phone Chris Bhatt MD Primary Care Provider +1- [phone] Encounter Details Date Type Department Care Team (Late st Contact Info) Description 03/04/2018 Results Only [facility] [phone] Hanna Esqueda MD [address] [place] [phone] Social History Tobacco Use Types Packs/Day Years [...] Date/Time Associated Diagnosis Comments SURGICAL PATHOLOGY Routine 03/04/2018 21 :28 EDT documented in this encounter Results * SURGICAL PATHOLOGY (03/04/2018 21:28 EDT) Pathology Report: SURGICAL PATHOLOGY REPORT Reports generated via electronic interface contain original data; however they are lacking the format of the original report. Caution should be taken when reading/interpret ing unformatted reports. Name: ? JANET FONTAINE ? Accession #: ? [id number] ? : ? 1980 (Age: 37) ??F ? Collect Date: ? 03/04/2018 ? Location: ? [facility] ? Receive Date: ? 03/04/2018 ? Provider: HANNA ESQUEDA MD Copy to: PATRICK TOMAS WET CROWN BLOCKING OPERATOR ? Final Pathologic Diagnosis: A. FALLOPIAN TUBE, LEFT, SALPINGECTOMY: - Fallopian tube with no specific pathologic features. B. FALLOPIAN TUBE, RIGHT, SALPINGECTOMY: - Fallopian tube with no specific pathologic features. C. OVARY, RIGHT, CYST WALL, CYSTECTOMY: - Cystic follicle. Document reviewed and electronically signed by: MARCIE ADAMS MD Report ??Date: 03/09/2018 15:11 By the signature above, the attending physician certifies that he/she has personally conducted a gross and/or microscopic examination of the described specimens and rendered or confirmed the above diagnosis. Specimen(s) Received: A. ??Left fallopian tube B. ??Right fallopian tube C. ??Right ovary cyst wall Clinical History: Desire for sterilization Gross Description: A. ?Received in formalin labelled with proper patient identification (initials A, S) and left fallopian tube are multiple fragments of fimbriated fallopian tube (ranging in length from 0.8 cm to 3.8 cm, and averaging 0.5 cm in diameter). Each tissue fragment has a purple-steele serosal surface. Sectioning reveals a patent, unremarkable lumen. Dixonac Operator sections, to include the trisected fimbria, are submitted in A1 and A2. B. ?Received in formalin labelled with proper patient identification (initials A, S) and R fallopian tube is a 6.0 cm in length x 0.5 cm in diameter fimbriated fallopian tube. The serosa is dusky purple-steele. Sectioning reveals a patent, unremarkable lumen. Dixonac Operator sections, to include the bisected fimbria, are submitted in B1 and B2. C. ?Received in formalin labelled with proper patient identification (initials A, S) and R ovary cyst wall is a 1.3 x 1.1 x 0.6 cm irregular fragment of soft lopez tissue. No firm areas or excrescences are identified. The specimen is submitted in toto in C1. LILIAM Fowler (ASCP) 03/05/2018 8:[address] [facility] 03/04/2018 21:2 8 EDT 03/04/2018 21:28 EDT Hanna Esqueda MD PATHOLOGY ORDERABLES [facility] [address] [place] [address] documented in this encounter Visit Diagnoses Not on filedocumented in this encounter Care Teams Rehab Manager Relationship Specialty Start Date End Date Chris Bhatt MD [address] [place] [address] [place] [address] PCP - General 08/15/10 documented as of this encounter
--- OUTSIDE RECORDS SUMMARY | 2024-05-10 01:22 | XMS_ITS | Encounter Summary ---
Author Organization [facility] Address [address] [place] [address] Care Team Providers Care Multimedia Manager Name Role Phone Chris Bhatt MD Primary Care Provider +1- [phone] Encounter Details Date Type Department Care Team (Latest Contact Info) Description 03/04/2018 12:07 EDT - 03/04/2018 23:59 EDT Hospital Encounter [address] [address] Unknown, Provider, Discharge Disposition: Home or Self [...] Code Departure Means Destination Home or Self [facility] documented in this encounter Plan of Treatment Not on file documented as of this encounter Visit Diagnoses Not on filedocumented in this encounter Care Teams Multimedia Manager Relationship Specialty Start Date End Date Chris Bhatt MD [address] [place] [address] [place] [phone] PCP - General 08/15/10 documented as of this encounter
--- OUTSIDE RECORDS SUMMARY | 2024-05-10 01:22 | XMS_ITS | Encounter Summary ---
Author Organization [facility] Address [address] [place] [address] Care Team Providers Care Dinkey Operator Slag Name Role Phone Unavailable Primary Care Provider Unavailabl e Encounter Details Date Type Department Care Team (Late st Contact Info) Description 01/28/2007 Before [facility] Converted Visit ([facility]) [facility] - Maple conversion [address] [place], [place] [address] Geraldine Marroquin MD [address] [facility], [address] [place] [address] Social History Tobacco Use Types Packs/Day Years Used Date Smoking Tobacco: Never Assessed Sex and Gender Information Value Date Recorded Sex Assigned at Not on file Gender Identity Not on file Sexual Orientation Not on file documented as of this encounter Progress Notes * Geraldine Marroquin MD - 08/15/2009 0335 EST DIVISION OF MATERNAL MEDICINE January [facility] S[facility]ETY MANA[facility] [address] [place] [phone] Dear Ciera: Thank you for referring Ms. Fontaine for consultation regarding a question of ascites. As you know she is a 26-year-old 3, para 2-0-0-2 who has had two term babies, one of which was 8-1/2 pounds and vaginal delivery, the other 9-1/2 pounds and vaginal delivery, who was referred because of a question of ascites on ultrasound at your institution. The patient states thatshe is only fairlycertain of her last menstrual period of 07/03/2006. Her initial ultrasound at 25 4 weeks by her lastmenstrual period placed her at 24 + 2 days at your institution. That was when moderate ascites was noted with no other anomalies. As you can see on her ultrasound today there are no anomalies seen. There is no evidenceof ascites. What is of note however is that there is some evidence of growth restriction with an estimated weight of 1150 grams which is just below the 5th percentile based on her not very good dating. This is an approximately 1 week lag in interval growth from her scan on 12/28/2006, suggesting suboptimal interval growth. I did do Dopplertoday and they were normal. I discussed with the patient that currently there are no anomalies that are identified; however, I am worried about the growth of her baby. Otherwise, there are no other abnormalities. Our recommendations include: 1. That she have kind of weekly assessment such as Doppler velocimetry, or biophysical profile until 32 weeks. 2. After 32 weeks gestation she should have Doppler velocimetry with biophysical profile testing. 3. She should have growth ultrasounds every three weeks to assess for interval growth. 4. It would be reasonable to check a CMV, IGG and IGM as certainly viral infection can explain both the poor growth and if there is ascites that had some resolutionIt is of note that we did look carefully at the bowel and there is no evidence of a bowel abnormality. At this point I discussed with the patient that we would be happy to see her every week however hakeem have a bit of transportation difficultyFor this reason she will talk to you about having some kind of assessment up there and certainly feel free to refer her back to us should be of any furtherhelp. Thank you for this referral and please let me know if I can be of any further help. Signed by Geraldine Marroquin MD 02/18/2007 18:13 Darrion Pantoja MD Geraldine Marroquin MD - Geraldine Marroquin MD P - dis Job ID: [id number] Document ID: [id number] cc: documented in this encounter Plan of Treatment Not on file documented as of this encounter Visit Diagnoses Not on filedocumented in this encounter
--- OUTSIDE RECORDS SUMMARY | 2024-05-10 01:22 | XMS_ITS | Encounter Summary ---
Author Organization [facility] Address [address] [place] [address] Care Team Providers Care Administration Assistant Name Role Phone Unavailable Primary Care Provider Unavailabl e Encounter Details Date Type Department Care Team (Late st Contact Info) Description 01/28/2007 16:00 EDT Hospital Encounter [facility] - Other [address] [place] [address] Geraldine Marroquin MD [address] [facility], [address] [place] [address] Ciera Mason, [address] [id number] Social History Tobacco Use Types Packs/Day Years [...] Procedure Name Priority Date/Time Associated Diagnosis Comments CORRECTION FOLLOW-UP 02/15/2007 19:44 EDT CORRECTION DETAILED 01/28/2007 18:27 EDT IGM Routine 01/28/2007 16:43 EDT IGG Routine 01/28/2007 16:43 EDT documented in this encounter Results * CORRECTION FOLLOW-UP (02/15/2007 19:44 EDT) Anatomical Region Laterality Modality Other 02/15/2007 19:4 4 EDT Narrative 04/11/2009 13:33 EDT FOLLOW UP,20397/GROWTH Please refer to the separate [facility] report. ??Contact Maternal Medicine. Procedure Note Phil Jc MD - 04/11/2009 FOLLOW UP,[id number]/GROWTH Please refer to the separate [facility] report. Contact Maternal Medicine. Ciera Mason CNM [facility] ORDER TIEN * CORRECTION DETAILED (01/28/2007 18:27 EDT) Anatomical Region Laterality Modality Other 01/28/2007 18:2 7 EDT Narrative 04/11/2009 13:31 EDT [id number], Detailed, Abdominal ascites of unknown etiology Please refer to the separate [facility] report. ??Contact Maternal Medicine. Procedure Note Geraldine Marroquin MD - 04/11/2009 [id number], Detailed, Abdominal ascites of unknown etiology Please refer to the separate [facility] report. Contact Maternal Medicine. Ciera Mason CNM [facility] ORDER TIEN * IGM (01/28/2007 16:43 EDT) IgM 109 46 - 304 mg/dl [facility] 01/28/2007 16:4 3 EDT 01/28/2007 16:50 EDT Geraldine Marroquin MD CHEMISTRY & BLOOD GA S ORDERABLES [facility] [address] [place] [address] * IGG (01/28/2007 16:43 EDT) IgG 760 751 - 1560 mg/dl [facility] 01/28/2007 16:4 3 EDT 01/28/2007 16:50 EDT Geraldine Marroquin MD CHEMISTRY & BLOOD GA S ORDERABLES [facility] [address] [place] [address] documented in this encounter Visit Diagnoses Not on filedocumented in this encounter
--- OUTSIDE RECORDS SUMMARY | 2024-05-10 01:22 | XMS_ITS | Encounter Summary ---
Author Organization [facility] Address [address] [place] [address] Care Team Providers Care Lime Spreader Name Role Phone Unavailable Primary Care Provider Unavailabl e Encounter Details Date Type Department Care Team (Late st Contact Info) Description 09/11/2006 Results Only [facility] - [facility] [address] [place] [address] Kevin Boles, [address] [id number] Social History Tobacco Use Types Packs/Day Years Used Date Smoking Tobacco: Never Assessed Sex and Gender Information Value Date Recorded Sex Assigned at Not on file Gender Identity Not on file Sexual Orientation Not on file documented as of this encounter Plan of Treatment Not on file documented as of this encounter Procedures Procedure Name Priority Date/Time Associated Diagnosis Comments CYTOPATHOLOGY Routine 09/11/2006 0:00 EST documented in this encounter Results * CYTOPATHOLOGY (09/11/2006 0:00 EST) Pathology Report: CYTOPATHOLOGY REPORT Reports generated via electronic interface contain original data; however they are lacking the format of the original report. Caution should be taken when reading/interpreti ng unformatted reports. Name: ? JANET FONTAINE ? Accession #: ? [id number] : ? 1980 (Age: 26) ??F ?Collect Date: ? 09/11/2006 Location: ? [facility] ? Receive Date: ? 09/14/2006 Provider: ?KEVIN BOLES CNM Copy to: ? Specimen/Source: ?ThinPrep Pap Test, Cervix/Endocervix, processed on [employer] ThinPrep Imaging System, with manual evaluation Last Menstrual Period: ? 07/03/06 Menstrual/Pregnanc y Status: ? Previous Gynecologic Pathology: ? Yes: 2005 pt states Treatment History: ? Colposcopy: 2005 wnl Cervical biopsy: 2005 wnl Other: ? Additional clinical information: No paps since 2004 HPVA - HPV testing requested if ASC-US on the current ThinPrep Pap test. ? SPECIMEN ADEQUACY ? Satisfactory for Evaluation - transformation zone component present GENERAL CATEGORIZATION ? Negative for Intraepithelial Lesion or Malignancy ? Document reviewed and electronically signed by: ? Kaelyn Siddiqui, GILDARDO(ASCP) ? Report Date: ??09/19/2006 09:53 End of Report [facility] 09/11/2006 09/14/2006 Kevin Boles CNM PATHOLOGY ORDERA SKIP [facility] [address] [place] [address] documented in this encounter Visit Diagnoses Not on filedocumented in this encounter
== END ==
PROVIDERS: PCP Physician Assistant; Visit Provider Physician Assistant
DX: R92.8 Other abnormal and inconclusive findings on diagnostic imaging of breast (principal)
CPT/HCPCS: 77061; 77065; G0279

== ENCOUNTER 2024-07-16 10:49 | Emergency (ER) | payer OTHER, SELFPAY ==
[2024-07-16 10:50] VITALS: BP 115/80; PULSE 89; RESP 14; TEMP 36.6; O2SAT 96
--- OUTSIDE RECORDS SUMMARY | 2024-07-16 10:54 | XMS_ITS | Encounter Summary ---
Author Organization [facility] Address [address] [place] [address] Care Team Providers Care Cvt Tech Name Role Phone Unavailable Primary Care Provider Unavailabl e Encounter Details Date Type Department Care Team (Late st Contact Info) Description 01/28/2007 Before PRISM Converted Visit (Maple) [facility] - Maple conversion [address] [place], [place] [address] Geraldine Marroquin MD [address] [facility], [address] [place] [address] Social History Tobacco Use Types Packs/Day Years Used Date Smoking Tobacco: Never Assessed Sex and Gender Information Value Date Recorded Sex Assigned at Not on file Gender Identity Not on file Sexual Orientation Not on file documented as of this encounter Progress Notes * Geraldine Marroquin MD - 08/15/2009 0335 EST DIVISION OF MATERNAL MEDICINE January 28[facility] [address] [place] [address] Dear Ciera: Thank you for referring Ms. [...] Marroquin MD P - dis Job ID: [id number] Document ID: [id number] cc: documented in this encounter Plan of Treatment Not on file documented as of this encounter Visit Diagnoses Not on filedocumented in this encounter
--- OUTSIDE RECORDS SUMMARY | 2024-07-16 10:54 | XMS_ITS | Encounter Summary ---
Author Organization [facility] Address [address] [place] [address] Care Team Providers Care Lcsw Name Role Phone Unavailable Primary Care Provider Unavailabl e Encounter Details Date Type Department Care Team (Late st Contact Info) Description 05/02/2008 Office Visit [facility] - Maple conversion [address] [place] [address] Alexa Mckeon PA Social History Tobacco Use [...] been reviewed by the Emergency Department physician certified dental assistant. Continue taking the following medications: (depression [...] referrals. Patient verbalized understanding. Written instructions providedin Latvian. The patient was discharged (staying on B5 [...]
--- OUTSIDE RECORDS SUMMARY | 2024-07-16 10:54 | XMS_ITS | Encounter Summary ---
Author Organization [facility] Address [address] [place] [address] Care Team Providers Care Act Tutor Name Role Phone Unavailable Primary Care Provider Unavailabl e Encounter Details Date Type Department Care Team (Late st Contact Info) Description 05/24/2007 Results Only [facility] - Maple conversion [address] [place] [address] Kevin Mason, [address] [id number] Social History Tobacco Use Types Packs/Day Years [...] ? JANET FONTAINE ? Accession #: ? [id number] : ? 1980 (Age: 27) ??F ?Collect Date: ? 05/24/2007 Location: ? [facility] ? Receive Date: ? 05/26/2007 Provider: ?KEVIN RICHTERM Copy to: ? Specimen/Source: ?ThinPrep Pap Test, Cervix/Endocervix, processed on [employer] ThinPrep Imaging System, with manual evaluation Last [...] CNM PATHOLOGY YOLANDA VALDIVIA LEANN MAYORGA [address] [place] [address] documented in this encounter Visit Diagnoses Not on filedocumented in this encounter
--- OUTSIDE RECORDS SUMMARY | 2024-07-16 10:54 | XMS_ITS | Encounter Summary ---
Author Organization [facility] Address [address] [place] [address] Care Team Providers Care Product Management Specialist Name Role Phone Unavailable Primary Care Provider Unavailabl e Encounter Details Date Type Department Care Team (Latest Contact Info) Description 05/02/2008 20:36 EDT - 05/03/2008 11:59 EDT Hospital Encounter [facility] Emergency Department - [facility] [address] [place] [address] Emergency, Default, MD Discharge Disposition: Home or [...]
--- OUTSIDE RECORDS SUMMARY | 2024-07-16 10:54 | XMS_ITS | Encounter Summary ---
Author Organization [facility] Address [address] [place] [address] Care Team Providers Care Rand Butting Machine Operator Name Role Phone Chris Bhatt MD Primary Care Provider +1- [phone] Encounter Details Date Type Department Care Team (Latest Contact Info) Description 03/04/2018 12:07 EDT - 03/04/2018 23:59 EDT Hospital Encounter [address] [address] Unknown, Provider, Discharge Disposition: Home or Self [...] Code Departure Means Destination Home or Self Residential documented in this encounter Plan of Treatment Not on file documented as of this encounter Visit Diagnoses Not on filedocumented in this encounter Care Teams Rand Butting Machine Operator Relationship Specialty Start Date End Date Chris Bhatt MD [address] [place] [address] [place] [phone] PCP - General 08/15/10 documented as of this encounter
--- OUTSIDE RECORDS SUMMARY | 2024-07-16 10:54 | XMS_ITS | Clinical Summary ---
Author Organization [facility] Address [address] [place] [address] Care Team Providers Care Audiology Director Name Role Phone Chris Bhatt MD Primary Care Provider +1- [phone] Allergies Active Allergy Reactions Criticality Noted Date [...] COVID-19 Vaccine ( season) 2023 Care Teams Audiology Director Relationship Specialty Start Date End Date Chris Bhatt MD [address] [place] [address] [place] [phone] PCP - General 08/15/10
--- OUTSIDE RECORDS SUMMARY | 2024-07-16 10:54 | XMS_ITS | Referral Summary ---
Author Organization [facility] Address [address] [place] [address] Care Team Providers Care Pathology Laboratory Aide Name Role Phone Chris Bhatt MD Primary Care Provider +1- [phone] Allergies Active Allergy Reactions Criticality Noted Date [...] of Treatment Not on file Care Teams Pathology Laboratory Aide Relationship Specialty Start Date End Date Chris Bhatt MD [address] [place] [address] [place] [address] PCP - General 08/15/10
--- OUTSIDE RECORDS SUMMARY | 2024-07-16 10:54 | XMS_ITS | Encounter Summary ---
Author Organization [facility] Address [address] [place] [address] Care Team Providers Care Specimen Accessioner Name Role Phone Chris Bhatt MD Primary Care Provider +1- [phone] Encounter Details Date Type Department Care Team (Latest Contact Info) Description 05/04/2015 15:27 EDT - 05/04/2015 23:59 EDT Hospital Encounter [address] [address] Unknown, Provider, Discharge Disposition: Home or Self [...] Code Departure Means Destination Home or Self Usp documented in this encounter Plan of Treatment Not on file documented as of this encounter Visit Diagnoses Not on filedocumented in this encounter Care Teams Specimen Accessioner Relationship Specialty Start Date End Date Chris Bhatt MD [address] [place] [address] [place] [phone] PCP - General 08/15/10 documented as of this encounter
--- OUTSIDE RECORDS SUMMARY | 2024-07-16 10:54 | XMS_ITS | Encounter Summary ---
Author Organization [facility] Address [address] [place] [address] Care Team Providers Care Art Gilder Name Role Phone Chris Bhatt MD Primary Care Provider +1- [phone] Encounter Details Date Type Department Care Team (Late st Contact Info) Description 11/17/2023 Lab Requisition [facility] Pathology & Laboratory Medicine - [facility] [address] [place] [address] Outr Resulting Lab, Provider Social History Tobacco [...] 8:20 EST) Hold Hold 11/17/2023 19:01 EST [facility] Blood VENOUS BLOOD / Unknown 11/17/2023 8:20 EST 11/17/2023 18:00 EST Provider Outr Resulting Lab LAB INFO SER VICE AND SUPPORT & PHONE RESULT Performing Organization Address [facility]/ZIP Co de Phone Number [facility] [address] [place] [address] * MEASLES IGG AB (11/17/2023 8:20 EST) Measles IgG Ab Positive See Note 11/18/2023 10:45 EST [facility] Comment:Presence of detectab le measles virus IgG antibodies. Blood VENOUS BLOOD / Unknown 11/17/2023 8:20 EST 11/17/2023 17:59 EST Provider Outr Resulting Lab IMMUNOLOGY A ND SEROLOGY ORDERABLES Performing Organization Address [facility] Co de Phone Number [facility] [address] [place] [address] * VARICELLA IGG ANTIBODY (11/17/2023 8:20 EST) Varicella IgG Ab Positive See Note 11/18/2023 10:41 EST [facility] Comment:Presence of detectab le Varicella Zoster virus IgG antibodies. Blood VENOUS BLOOD / Unknown 11/17/2023 8:20 EST 11/17/2023 17:59 EST Provider Outr Resulting Lab IMMUNOLOGY A ND SEROLOGY ORDERABLES Performing Organization Address City/[facility]/ZIP Co de Phone Number [facility] [address] [place] [address] * MUMPS ANTIBODY IGG (11/17/2023 8:20 EST) Mumps Antibody IgG Positive See Note 11/18/2023 10:46 EST [facility] Comment:Presence of detectab le mumps virus IgG antibodies. Blood VENOUS BLOOD / Unknown 11/17/2023 8:20 EST 11/17/2023 17:59 EST Provider Outr Resulting Lab IMMUNOLOGY A ND SEROLOGY ORDERABLES Performing Organization Address City/[facility] Co de Phone Number [facility] [address] [place] [address] * RUBELLA IGG ANTIBODY (11/17/2023 8:20 EST) Rubella IgG Ab Positive See Note 11/18/2023 10:48 EST [facility] Comment:Positive for IgG ant ibodies to Rubella virus. Blood VENOUS BLOOD / Unknown 11/17/2023 8:20 EST 11/17/2023 17:59 EST Provider Outr Resulting Lab CHEMISTRY & BLOOD GAS ORDERABLES Performing Organization Address [facility] de Phone Number [facility] [address] [place] [address] documented in this encounter Visit Diagnoses Not on filedocumented in this encounter Care Teams Art Gilder Relationship Specialty Start Date End Date Chris Bhatt MD [address] [place] [address] [place] [phone] PCP - General 08/15/10 documented as of this encounter
--- OUTSIDE RECORDS SUMMARY | 2024-07-16 10:54 | XMS_ITS | Encounter Summary ---
Author Organization [facility] Address [address] [place] [address] Care Team Providers Care Demand Generation Manager Name Role Phone Chirs Bhatt MD Primary Care Provider +1- [phone] Encounter Details Date Type Department Care Team (Late st Contact Info) Description 07/22/2019 Results Only [facility]- PRISM [phone] Cooper Gonzalez, [address] [place] [phone] Social History Tobacco Use Types Packs/Day Years [...] ? JANET FONTAINE ? Accession #: ? [id number] ? : ? 1980 (Age: 39) ??F [...] Z11.51 FAX - Request for Fax report: [phone] Specimen/Source: ??Pap Test, Cervix, ThinPrep Imaging System [...] types 16,18,31,33,35, 39,45,51,52,56,58, 59,66, and 68 by operational review sergeant mediated amplification. Comments Document reviewed and electronically signed by: ? System Interface ? Report date: 07/28/2019 By the signature above, the attending physician certifies that he/she has personally conducted a gross and/or microscopic examination of the described specimens and rendered or confirmed the above diagnosis. End of Report [facility] 07/22/2019 07/25/2019 Cooper Youngblood DNP PATHOLOGY ORDERAB LES [facility] [address] [place] [address] documented in this encounter Visit Diagnoses Not on filedocumented in this encounter Care Teams Demand Generation Manager Relationship Specialty Start Date End Date Chris Bhatt MD [address] [place] [address] [place] [address] PCP - General 08/15/10 documented as of this encounter
--- OUTSIDE RECORDS SUMMARY | 2024-07-16 10:54 | XMS_ITS | Encounter Summary ---
Author Organization [facility] Address [address] [place] [address] Care Team Providers Care Telegraph Equipment Maintainer Name Role Phone Chris Bhatt MD Primary Care Provider +1- [phone] Encounter Details Date Type Department Care Team (Late st Contact Info) Description 11/17/2023 Lab Requisition [facility] Pathology & Laboratory Medicine - [facility] [address] [place] [address] Outr Resulting Lab, Provider Social History Tobacco [...] 8:20 EST) Hold Hold 11/17/2023 19:01 EST [facility] Blood VENOUS BLOOD / Unknown 11/17/2023 8:20 EST 11/17/2023 18:00 EST Provider Outr Resulting Lab LAB INFO SER VICE AND SUPPORT & PHONE RESULT Performing Organization Address [facility] Co de Phone Number [facility] [address] [place] [address] * HEPATITIS B SURFACE ANTIBODY (11/17/2023 8:20 EST) Hep B Surface Ab, Quantitative >1,000.0 See Note mIU/mL 11/17/2023 19:16 [facility] Comment: Reference Range for Hep B Surface Ab, Quant: Positive: >= 10.0 mIU/mL Negative: ??< 10.0 mIU/mL Patient is presumed to be immune to infection with Hepatitis B Virus. Hep B Surface Ab, Qualitative Positive See Note 11/17/2023 19:16 [facility] Comment: Reference Range for Hep B Surface Ab, Qual: Unvaccinated: ??Negative Vaccinated: ??Positive Blood VENOUS BLOOD / Unknown 11/17/2023 8:20 EST 11/17/2023 17:59 EST Provider Outr Resulting Lab CHEMISTRY & BLOOD GAS ORDERABLES Performing Organization Address [facility] Co de Phone Number [facility] [address] [place] [address] * HEPATITIS B CORE ANTIBODY (TOTAL) (11/17/2023 8:20 EST) Hepatitis B Core Ab, Total Negative Negative 11/17/2023 21:36 EST [facility] Blood VENOUS BLOOD / Unknown 11/17/2023 8:20 EST 11/17/2023 17:59 EST Provider Outr Resulting Lab CHEMISTRY & BLOOD GAS ORDERABLES Performing Organization Address [facility]/ZIP Co de Phone Number [facility] [address] [place] [address] * HEPATITIS B SURFACE ANTIGEN (11/17/2023 8:20 EST) Hep B Surface Ag Negative Negative 11/17/2023 21:06 EST [facility] Blood VENOUS BLOOD / Unknown 11/17/2023 8:20 EST 11/17/2023 17:59 EST Provider Outr Resulting Lab CHEMISTRY & BLOOD GAS ORDERABLES Performing Organization Address City/State/[facility] Co de Phone Number [facility] [address] [place] [address] documented in this encounter Visit Diagnoses Not on filedocumented in this encounter Care Teams Telegraph Equipment Maintainer Relationship Specialty Start Date End Date Chris Bhatt MD [address] [place] [address] [place] [address] PCP - General 08/15/10 documented as of this encounter
--- OUTSIDE RECORDS SUMMARY | 2024-07-16 10:54 | XMS_ITS | Encounter Summary ---
Author Organization [facility] Address [address] [place] [address] Care Team Providers Care Air Quality Specialist Name Role Phone Chris Bhatt MD Primary Care Provider +1- [phone] Encounter Details Date Type Department Care Team (Late st Contact Info) Description 05/04/2015 Results Only [facility] [phone] David Penn MD [address] [place] [phone] Social History Tobacco Use Types Packs/Day [...] ? JANET FONTAINE ? Accession #: ? [id number] ? : ? 1980 (Age: 35) ??F [...] 1. 05/07/2015 9:38 AM End of Report [facility] 05/04/2015 18:4 4 EDT 05/04/2015 18:44 EDT David Penn MD PATHOLOGY ORDERABLE S [facility] [address] [place] [address] documented in this encounter Visit Diagnoses Not on filedocumented in this encounter Care Teams Air Quality Specialist Relationship Specialty Start Date End Date Chris Bhatt MD [address] [place] [address] [place] [phone] PCP - General 08/15/10 documented as of this encounter
--- OUTSIDE RECORDS SUMMARY | 2024-07-16 10:54 | XMS_ITS | Encounter Summary ---
Author Organization [facility] Address [address] [place] [address] Care Team Providers Care Professor Of Voice Name Role Phone Unavailable Primary Care Provider Unavailabl e Encounter Details Date Type Department Care Team (Late st Contact Info) Description 02/12/2010 Results Only [facility]- PRISM [phone] Ernesto Preston APRN [address] [place] [address] [address] [place], [place] [phone] Social History Tobacco Use Types Packs/Day Years [...] GENER AL ORDERABLES [facility] [address] [place] [address] * CYTOPATHOLOGY (02/12/2010 0:00 EDT) Pathology Report: CYTOPATHOLOGY REPORT ? Reports generated via electronic interface contain original data; ? however they are lacking the format of the original report. ? Caution should be taken when reading/interpreti ng unformatted reports. ? Name: ? JANET FONTAINE ? Accession #: ? [id number] ? : ? 1980 (Age: 29) ??F ?Collect Date: ? 02/12/2010 ? Location: ? [facility] ? Receive Date: ? 02/14/2010 ? Provider: ?ERNESTO O PRESTON SEED CLEANER OPERATOR ? Copy to: ? Specimen/Source: ?Pap Test, [...] [facility] 02/12/2010 02/14/2010 Ernesto Preston TYPEWRITER TESTER PATHOLOGY ORDERABLES [facility] [address] [place] [address] documented in this encounter Visit Diagnoses Not on filedocumented in this encounter
--- OUTSIDE RECORDS SUMMARY | 2024-07-16 10:54 | XMS_ITS | Encounter Summary ---
Author Organization [facility] Address [address] [place] [address] Care Team Providers Care Operations Administrator Name Role Phone Unavailable Primary Care Provider Unavailabl e Encounter Details Date Type Department Care Team (Late st Contact Info) Description 03/30/2007 13:42 EDT Hospital Encounter [facility] [address] [place] [address] Geraldine Marroquin MD [address] [facility], [address] [place] [address] Social History Tobacco Use Types [...] Procedure Name Priority Date/Time Associated Diagnosis Comments ALF BIOPHYSICAL PROFILE 03/30/2007 16:55 EDT documented in this encounter Results * ALF BIOPHYSICAL PROFILE (03/30/2007 16:55 EDT) Anatomical Region Laterality Modality Other 03/30/2007 16:5 5 EDT Narrative 04/11/2009 11:27 EDT BPP/DOPPLER/GROWTH, WITH NST Please refer to the separate [facility] report. ??Contact Maternal Medicine. Procedure Note Phil Jc MD - 04/11/2009 BPP/DOPPLER/GROWTH, WITH NST Please refer to the separate [facility] report. Contact Maternal Medicine. Ciera Mason CNM [facility] documented in this encounter Visit Diagnoses Not on filedocumented in this encounter
--- OUTSIDE RECORDS SUMMARY | 2024-07-16 10:54 | XMS_ITS | Encounter Summary ---
Author Organization [facility] Address [address] [place] [address] Care Team Providers Care Registered Nurse Supervisor Name Role Phone Chris Bhatt MD Primary Care Provider +1- [phone] Encounter Details Date Type Department Care Team (Late st Contact Info) Description 03/04/2018 Results Only [facility] [phone] Hanna Esqueda MD [address] [place] [phone] Social History Tobacco Use Types Packs/Day [...] ? JANET FONTAINE ? Accession #: ? [id number] ? : ? 1980 (Age: 37) ??F ? Collect Date: ? 03/04/2018 ? Location: ? [facility] ? Receive Date: ? 03/04/2018 ? Provider: HANNA ESQUEDA MD Copy to: PATRICK TOMAS BUSINESS ADMINISTRATION PROGRAM CHAIR ? Final Pathologic Diagnosis: A. FALLOPIAN TUBE, [...] surface. Sectioning reveals a patent, unremarkable lumen. Anvil Worker sections, to include the trisected fimbria, are submitted in A1 and A2. B. ?Received in formalin labelled with proper patient identification (initials A, S) and R fallopian tube is a 6.0 cm in length x 0.5 cm in diameter fimbriated fallopian tube. The serosa is dusky purple-steele. Sectioning reveals a patent, unremarkable lumen. Anvil Worker sections, to include the bisected fimbria, are [...] (ASCP) 03/05/2018 8:50 AM End of Report [facility] 03/04/2018 21:2 8 EDT 03/04/2018 21:28 EDT Hanna Esqueda MD PATHOLOGY ORDERABLES [facility] [address] [place] [address] documented in this encounter Visit Diagnoses Not on filedocumented in this encounter Care Teams Registered Nurse Supervisor Relationship Specialty Start Date End Date Chris Bhatt MD [address] [place] [address] [place] [address] PCP - General 08/15/10 documented as of this encounter
--- OUTSIDE RECORDS SUMMARY | 2024-07-16 10:54 | XMS_ITS | Encounter Summary ---
Author Organization [facility] Address [address] [place] [address] Care Team Providers Care Patient'S Librarian Name Role Phone Chris Steiner MD Primary Care Provider +1- [phone] Reason for Visit * Reason Comments Asthma Pts son is admitted upstairs, pt did not bring her inhaler from home, awoke tonight with asthma exacerbation. + insp/exp wheezing. Encounter Details Date Type Department Care Team (Late st Contact Info) Description 08/15/2010 2:48 EDT - 08/15/2010 5:00 EDT Emergency [facility] Emergency Department - [address] [id number] Allison Jo MD [address] [place] [address], [address] [place] [address] Emergency, MD Kamron Asthma with [...] from the original note were not included. [facility] Patient Instructions Asthma Attack: After Your Visit [...] Where can you learn more? Go to www.Critical Links.net/fahc Enter B821 in the search box to learn more about Asthma Attack: After Your Visit to the Emergency Room. ?? 2005 - 2008 [employer]. Care instructions adapted under license by [facility] . This care instruction is for use with your licensed healthcare professional. If you have questions about a medical condition or this instruction, always ask your healthcare professional. [employer] disclaims any warranty or liability for your [...] RN) documented in this encounter Care Teams Patient'S Librarian Relationship Specialty Start Date End Date Chris Steiner MD [address] [place] [address] [place] [phone] PCP - General 08/15/10 documented as of this encounter
--- OUTSIDE RECORDS SUMMARY | 2024-07-16 10:54 | XMS_ITS | Encounter Summary ---
Author Organization [facility] Address [address] [place] [address] Care Team Providers Care Team Supervisor Name Role Phone Chris Bhatt MD Primary Care Provider [phone] Encounter Details Date Type Department Care Team (Late st Contact Info) Description 11/18/2023 Lab Requisition [facility] Pathology & Laboratory Medicine - [facility] [address] [place] [address] Outr Resulting Lab, Provider Social History Tobacco [...] Quantiferon Interpretation Negative Negative 11/19/2023 12:03 EST [facility] Comment:No interferon-gamma response to M. tuberculosis antigens was detected. ??Infection with M. tuberculosis is unlikely. A single negative result does not exclude infection with M. tuberculosis. ??In patients at high risk for M. tuberculosis infection, a second test should be considered. TB1 Ag minus Nil 0.01 IU/ml 11/19/19 12:03 EST [facility] TB2 Ag minus Nil 0.01 IU/mL 11/19/19 12:03 EST [facility] Blood VENOUS BLOOD / Unknown 11/17/2023 8:20 EST 11/19/2023 11:57 EST Provider Outr Resulting Lab IMMUNOLOGY A ND SEROLOGY ORDERABLES Performing Organization Address [facility] Co de Phone Number [facility] [address] [place] [address] * QUANTIFERON MITOGEN (PERFORMABLE) (11/17/2023 8:20 EST) Blood VENOUS BLOOD / Unknown 11/17/2023 8:20 EST 11/18/2023 17:00 EST Provider Outr Resulting Lab IMMUNOLOGY A ND SEROLOGY ORDERABLES Performing Organization Address City/[facility]/ZIP Co de Phone Number [facility] [address] [place] [address] * QUANTIFERON TB2 (PERFORMABLE) (11/17/2023 8:20 EST) Blood VENOUS BLOOD / Unknown 11/17/2023 8:20 EST 11/18/2023 17:00 EST Provider Outr Resulting Lab IMMUNOLOGY A ND SEROLOGY ORDERABLES Performing Organization Address [facility]/ZIP Co de Phone Number [facility] [address] [place] [address] * QUANTIFERON TB1 (PERFORMABLE) (11/17/2023 8:20 EST) Blood VENOUS BLOOD / Unknown 11/17/2023 8:20 EST 11/18/2023 17:00 EST Provider Outr Resulting Lab IMMUNOLOGY A ND SEROLOGY ORDERABLES Performing Organization Address [facility] de Phone Number [facility] [address] [place] [address] * QUANTIFERON NIL (PERFORMABLE) (11/17/2023 8:20 EST) Blood VENOUS BLOOD / Unknown 11/17/2023 8:20 EST 11/18/2023 17:00 EST Provider Outr Resulting Lab IMMUNOLOGY A ND SEROLOGY ORDERABLES Performing Organization Address [facility] de Phone Number [facility] [address] [place] [address] documented in this encounter Visit Diagnoses Not on filedocumented in this encounter Care Teams Team Supervisor Relationship Specialty Start Date End Date Chris Bhatt MD [address] [place] [address] [place] [address] PCP - General 08/15/10 documented as of this encounter
--- OUTSIDE RECORDS SUMMARY | 2024-07-16 10:55 | XMS_ITS | Encounter Summary ---
Author Organization [facility] Address [address] [place] [address] Care Team Providers Care Supervisor Of Communications Name Role Phone Unavailable Primary Care Provider Unavailabl e Encounter Details Date Type Department Care Team (Late st Contact Info) Description 01/11/2003 Results Only [facility] - [facility] [address] [place] [address] Mar Payne, [place], [place] [id number] Social History Tobacco Use Types Packs/Day Years [...] ? JANET FONTAINE ? Accession #: ? [id number] : ? 1980 (Age: 22) ??F ?Collect [...] Payne CNM PATHOLOGY ORDERABLES [facility] [address] [place] [address] documented in this encounter Visit Diagnoses Not on filedocumented in this encounter
--- OUTSIDE RECORDS SUMMARY | 2024-07-16 10:55 | XMS_ITS | Encounter Summary ---
Author Organization [facility] Address [address] [place] [address] Care Team Providers Care Dance Therapist Name Role Phone Unavailable Primary Care Provider Unavailabl e Encounter Details Date Type Department Care Team (Late st Contact Info) Description 09/11/2006 Results Only [facility] - Maple conversion [address] [place] [address] Kevin Boles, [address] [id number] Social History Tobacco Use Types Packs/Day Years [...] ? JANET FONTAINE ? Accession #: ? [id number] : ? 1980 (Age: 26) ??F ?Collect Date: ? 09/11/2006 Location: ? [facility] ? Receive Date: ? 09/14/2006 Provider: ?KEVIN BOLES CNM Copy to: ? Specimen/Source: ?ThinPrep Pap Test, Cervix/Endocervix, processed on [employer] ThinPrep Imaging System, with manual evaluation Last [...] PATHOLOGY ORDERA SKIP [facility] [address] [place] [address] documented in this encounter Visit Diagnoses Not on filedocumented in this encounter
--- OUTSIDE RECORDS SUMMARY | 2024-07-16 10:55 | XMS_ITS | Encounter Summary ---
Author Organization [facility] Address [address] [place] [address] Care Team Providers Care Air Brake Operator Name Role Phone Unavailable Primary Care Provider Unavailabl e Encounter Details Date Type Department Care Team (Late st Contact Info) Description 03/19/2001 Results Only [facility] - Maple conversion [address] [place] [address] Bhavana Albarran CNM [address] [phone] Social History Tobacco Use Types Packs/Day Years [...] ? JANET FONTAINE ? Accession #: ? [id number] : ? 1980 (Age: 20) ??F ?Collect [...] [facility] PATHOLOGY ORDERABLES [facility] [address] [place] [address] documented in this encounter Visit Diagnoses Not on filedocumented in this encounter
--- OUTSIDE RECORDS SUMMARY | 2024-07-16 10:55 | XMS_ITS | Encounter Summary ---
Author Organization [facility] Address [address] [place] [address] Care Team Providers Care Hospital Unit Clerk Name Role Phone Unavailable Primary Care Provider Unavailabl e Encounter Details Date Type Department Care Team (Late st Contact Info) Description 01/28/2007 16:00 EDT Hospital Encounter [facility] - Other [address] [place] [address] Geraldine Marroquin MD [address] [facility], [address] [place] [address] Ciera Mason, [address] [id number] Social History Tobacco Use Types Packs/Day Years [...] Procedure Name Priority Date/Time Associated Diagnosis Comments CUSTODIAL FOLLOW-UP 02/15/2007 19:44 EDT CUSTODIAL DETAILED 01/28/2007 18:27 EDT IGM Routine 01/28/2007 16:43 EDT IGG Routine 01/28/2007 16:43 EDT documented in this encounter Results * CUSTODIAL FOLLOW-UP (02/15/2007 19:44 EDT) Anatomical Region Laterality Modality Other 02/15/2007 19:4 4 EDT Narrative 04/11/2009 13:33 EDT FOLLOW UP,[id number]/[id number] Please refer to the separate [facility] report. ??Contact Maternal Medicine. Procedure Note Phil Jc MD - 04/11/2009 FOLLOW UP,[id number]/GROWTH Please refer to the separate [facility] report. Contact Maternal Medicine. Ciera Mason CNM [facility] [place] * CUSTODIAL DETAILED (01/28/2007 18:27 EDT) Anatomical Region Laterality Modality Other 01/28/2007 18:2 7 EDT Narrative 04/11/2009 13:31 EDT [id number], Detailed, Abdominal ascites of unknown etiology Please refer to the separate [facility] report. ??Contact Maternal Medicine. Procedure Note Geraldine Marroquin MD - 04/11/2009 [id number], Detailed, Abdominal ascites of unknown etiology Please refer to the separate [facility] report. Contact Maternal Medicine. Ciera Mason CNM [facility] [place] * IGM (01/28/2007 16:43 EDT) IgM 109 46 - 304 mg/dl [facility] 01/28/2007 16:4 3 EDT 01/28/2007 16:50 EDT Geraldine Marroquin MD CHEMISTRY & BLOOD GA S ORDERABLES [facility] [address] [place] [address] * IGG (01/28/2007 16:43 EDT) IgG 760 751 - 1560 mg/dl [facility] 01/28/2007 16:4 3 EDT 01/28/2007 16:50 EDT Geraldine Marroquin MD CHEMISTRY & BLOOD GA S ORDERABLES [facility] [address] [place] [address] documented in this encounter Visit Diagnoses Not on filedocumented in this encounter
--- OUTSIDE RECORDS SUMMARY | 2024-07-16 10:55 | XMS_ITS | Encounter Summary ---
Author Organization [facility] Address [address] [place] [address] Care Team Providers Care Wash Crew Person Name Role Phone Unavailable Primary Care Provider Unavailabl e Encounter Details Date Type Department Care Team (Late st Contact Info) Description 01/06/2002 Results Only [facility] - Maple conversion [address] [place] [address] Mar Kilpatrick, [place], [place] [address] Social History Tobacco Use Types Packs/Day Years [...] ? JANET FONTAINE ? Accession #: ? [id number] : ? 1980 (Age: 21) ??F ?Collect [...] Kilpatrick CNM PATHOLOGY ORDERABLES [facility] [address] [place] [address] documented in this encounter Visit Diagnoses Not on filedocumented in this encounter
--- NOTE | 2024-07-16 11:04 | ED.GENADUL_ITS ---
Discharge Plan Disposition Patient Disposition: Home Condition: Stable Discharge Details Clinical Impression: Cut of skin of left middle finger Primary Care Provider: Kalin Ramon ED Provider: Rafy Alvarado Home Meds and New Rx's Prescriptions: Continued montelukast 10 mg tablet 10 mg PO DAILY folic acid 1 MG tablet 1 mg PO DAILY trazodone 100 mg tablet 100 mg PO QHS PRN meclizine 25 mg tablet 25 mg PO TID PRN lurasidone [Latuda] 120 mg tablet 80 mg PO QPM Rx Instructions: must administer with food (at least 350 calories) topiramate 100 mg tablet 100 mg PO BID albuterol sulfate 8.5 GM HFA aerosol inhaler 2 puff Inhalation Q4H PRN Qty: 1 0RF biotin 5 MG capsule 1 cap PO DAILY cholecalciferol (vitamin D3) 5,000 UNIT tablet 1 tab PO DAILY loratadine 10 MG tablet 10 mg PO DAILY acetaminophen 500 mg tablet 1,000 mg PO TID Qty: 90 0RF Centrum Silver Women 1 EACH tablet 1 ea PO DAILY scopolamine base 1 mg over 3 days patch 3 day 1 patch transdermal Q72H PRN (Reason: nausea and vomiting) Qty: 24 0RF budesonide-formoterol [Symbicort] 160-4.5 mcg/actuation HFA aerosol inhaler 2 puff INHALATION DAILY Patient Comments: INHALE ONE PUFF BY MOUTH TWICE A DAY - RINSE MOUTH AFTER USING buspirone 5 mg tablet 5 mg PO BID Patient Comments: TAKE ONE TABLET BY MOUTH TWO TIMES A DAY Discharge Instructions Instructions: Skin glue for minor cuts Additional Instructions: Follow-up with your primary care provider as needed If you have spreading redness down the finger, severe pain or yellow-white discharge of the wound return to the emergency department for reevaluation HPI General Mode of arrival: ambulatory . Date/Time Provider Initiated Documentation: 07/16/24 10:54 . Limitations to Documentation: no limitations . Information obtained by: patient . History of Present Illness 44 year old F presents to the emergency department with the chief complaint of left index finger cut on can, described as mild, Patient started experiencing this minute(s) (30) No relieving factors improve symptom(s), No exacerbating factors reported . Patient notes no other symptoms.. Related Data Home Medications ?Medication ?Instructions ?Recorded ?Confirmed albuterol sulfate 90 mcg/actuation 2 puff inhalation Q4H PRN ##1 07/09/14 07/16/24 aerosol inhaler biotin 5 mg capsule 1 cap PO DAILY 04/27/15 07/16/24 cholecalciferol (vitamin D3) 125 1 tab PO DAILY 04/27/15 07/16/24 mcg (5,000 unit) tablet loratadine 10 mg tablet 10 mg PO DAILY 04/27/15 07/16/24 folic acid 1 mg tablet 1 mg PO DAILY 03/03/18 07/16/24 [id number]-xqui-rild 8 mg-folic 400 1 ea PO DAILY 03/03/18 07/16/24 mcg-K 50 mcg-lutein 300 mcg tablet (Centrum Silver Women) scopolamine base 1 mg over 3 days 1 patch transdermal Q72H PRN 07/09/20 07/16/24 transdermal patch nausea and vomiting #24 ea montelukast 10 mg tablet 10 mg PO DAILY 01/28/21 07/16/24 topiramate 100 mg tablet 100 mg PO BID 01/28/21 07/16/24 budesonide-formoterol HFA 160 2 puff inhalation DAILY 12/06/22 07/16/24 mcg-4.5 mcg/actuation aerosol inhaler (Symbicort) meclizine 25 mg tablet 25 mg PO TID PRN 03/12/23 07/16/24 trazodone 100 mg tablet 100 mg PO QHS PRN 03/12/23 07/16/24 lurasidone 120 mg tablet (Latuda) 80 mg PO QPM 04/28/23 07/16/24 acetaminophen 500 mg tablet 1,000 mg (2 x 500 mg) PO TID #90 05/13/23 07/16/24 tabs buspirone 5 mg tablet 5 mg PO BID 07/16/24 07/16/24 Previous Rx's ?Medication ?Instructions ?Recorded albuterol sulfate 90 mcg/actuation 2 puff inhalation Q4H PRN ##1 07/09/14 aerosol inhaler scopolamine base 1 mg over 3 days 1 patch transdermal Q72H PRN 07/09/20 transdermal patch nausea and vomiting #24 ea acetaminophen 500 mg tablet 1,000 mg (2 x 500 mg) PO TID #90 05/13/23 tabs Allergies Allergy/AdvReac Type Severity Reaction Status Date / Time Penicillins Allergy Severe Anaphylaxsis, Verified 07/16/24 10:53 throat tightness divalproex sodium (From Allergy Intermediate Other (See Verified 07/16/24 10:53 Depakote) Comment) hydrocodone (From Vicodin) Allergy Intermediate rash Verified 07/16/24 10:53 latex Allergy Intermediate Topical Verified 07/16/24 10:53 Irritation aspirin AdvReac Severe increases Verified 07/16/24 10:53 toxicity combined w/ lithium ibuprofen AdvReac Severe increases Verified 07/16/24 10:53 toxicity combined w/ lithium General Stated Complaint: Laceration DENNIS: 4 Review of Systems All systems reviewed & are unremarkable except as noted in HPI and below Constitutional Constitutional: Denies weakness Respiratory Respiratory: Denies cough Gastrointestinal Gastrointestinal: Denies vomiting Integumentary/Breasts Skin/Breast: Denies rash Neurologic Neurologic: Denies weakness Exam Const General: no acute distress Orientation: alert HENMT Head: normal to inspection Ears: external ears normal General nose exam: external nose normal Mouth: moist mucous membranes Eyes General: appearance normal, both eyes and all related structures Neck Neck: normal visual inspection Resp Effort & Inspection: normal respiratory effort and able to speak in complete sentences Cardio Rate: regular rate Skin General skin exam: no rashes or lesions noted Neuro General: patient alert and patient oriented x3 Extrem General: full ROM and capillary refill normal Psych Mental Status: mental status grossly normal Course Vital Signs Vital signs: Vital Signs Temperature 36.6 C 07/16/24 10:50 Pulse 89 07/16/24 10:50 Respiratory Rate 14 07/16/24 10:50 Blood Pressure 115/80 07/16/24 10:50 Pulse Oximetry 96 07/16/24 10:50 Temperature 36.6 C 07/16/24 10:50 Temperature Source Oral 07/16/24 10:50 Pulse 89 07/16/24 10:50 Respiratory Rate 14 07/16/24 10:50 Respiratory Effort Normal, Non-Labored 07/16/24 11:00 Blood Pressure 115/80 07/16/24 10:50 Blood Pressure Position Sitting 07/16/24 10:50 Pulse Oximetry 96 07/16/24 10:50 Oxygen Delivery Method Room Air 07/16/24 10:50 Oxygen Flow Rate 0 07/16/24 10:50 Pain Level 4 07/16/24 10:50 Medical Decision Making 44-year-old female comes in after she was at work opening a can and cut the distal left middle finger. She did not fall or sustain any other injuries. She has a superficial half a centimeter abrasion just medial to the nail in the left distal middle finger. She has full range of motion, intact sensation and cap refill. Wound was cleaned and covered with skin adhesive. She tolerated well. She is stable for discharge advised to follow-up with PCP as needed and return precautions given Differential Diagnosis Differential Diagnosis: Abrasion, laceration Quality:SDOH Health Related Social Needs: No Data to Display PFSH All Active Problems (Updated 07/16/24 @ 11:06 by Rafy Alvarado MD) Cut of skin of left middle finger (Acute) Encounter for pre-employment examination (Acute) Ganglion cyst of volar aspect of right wrist (Acute) S/P Excision: 05/13/2023; 05/14/2021 Contusion of left index finger (Acute) Medical History Tobacco use Periodic limb movement disorder Bipolar 1 disorder (01/08/18) Depression (01/08/18) Obesity (BMI 30.0-34.9) (01/08/18) Environmental allergies Asthma Surgical History Hx of tubal ligation Social History Smoking/Tobacco Use Status: Former Tobacco Use Quit Date: 07/12/22 Smoking risk assessment performed?: Yes Alcohol Intake: current Alcohol Intake frequency: holidays/special occasions only Drug use: Occasionally Substance use type: marijuana Housing: apartment Do you feel safe at home: Yes Do you feel safe in your relationship?: Yes
[2024-07-16] MEDS: Tetanus & Diphtheria Tox,ADULT 0.5 ML VIAL IM (11:14)
== END 2024-07-16 11:21 | disposition home or self-care (01) ==
PROVIDERS: Emergency Provider Emergency Medicine; PCP Physician Assistant
DX: S61.213A Laceration without foreign body of left middle finger without damage to nail, initial encounter (principal); Z23 Encounter for immunization; W26.8XXA Contact with other sharp object(s), not elsewhere classified, initial encounter; Y93.89 Activity, other specified; Y92.89 Other specified places as the place of occurrence of the external cause; Y99.0 Civilian activity done for income or pay
CPT/HCPCS: 90471; 90714; 99283

== ENCOUNTER 2024-08-25 13:45 | Emergency (ER) | payer OTHER, SELFPAY ==
[2024-08-25 13:48] VITALS: BP 143/84; PULSE 82; RESP 15; TEMP 36.8; O2SAT 98
--- NOTE | 2024-08-25 14:00 | DI.RAD_ITS ---
Exam(s) XR SHOULDER RT COMPLETE 2+V EXAM: XR SHOULDER RT COMPLETE 2+V CLINICAL HISTORY: right shoulder pain. TECHNIQUE: 2D digital imaging was performed of the right shoulder. Five images were obtained. AP, Grashey, Y-view and axillary views were obtained. COMPARISON: No exams were available for comparison FINDINGS: BONES: No acute fracture is present. No bony destructive lesion is seen. JOINTS: No dislocation present. The acromioclavicular and glenohumeral joints are well maintained. SOFT TISSUE: Normal. IMPRESSION: Unremarkable radiographs of the right shoulder. DATA REPOSITORY: RADIATION DOSE DELIVERED:
[2024-08-25] MEDS: Ibuprofen 600 MG TAB PO (14:05)
--- NOTE | 2024-08-25 14:18 | ED.GENADUL_ITS ---
Discharge Plan Disposition Patient Disposition: Home Condition: Stable Discharge Details Clinical Impression: Acute pain of right shoulder Primary Care Provider: Kalin Ramon ED Provider: Ya Yanez Home Meds and New Rx's Prescriptions: No Action montelukast 10 mg tablet 10 mg PO DAILY folic acid 1 MG tablet 1 mg PO DAILY trazodone 100 mg tablet 100 mg PO QHS PRN meclizine 25 mg tablet 25 mg PO TID PRN lurasidone [Latuda] 120 mg tablet 80 mg PO QPM Rx Instructions: must administer with food (at least 350 calories) topiramate 100 mg tablet 100 mg PO BID albuterol sulfate 8.5 GM HFA aerosol inhaler 2 puff Inhalation Q4H PRN Qty: 1 0RF biotin 5 MG capsule 1 cap PO DAILY cholecalciferol (vitamin D3) 5,000 UNIT tablet 1 tab PO DAILY loratadine 10 MG tablet 10 mg PO DAILY acetaminophen 500 mg tablet 1,000 mg PO TID Qty: 90 0RF Centrum Silver Women 1 EACH tablet 1 ea PO DAILY scopolamine base 1 mg over 3 days patch 3 day 1 patch transdermal Q72H PRN (Reason: nausea and vomiting) Qty: 24 0RF budesonide-formoterol [Symbicort] 160-4.5 mcg/actuation HFA aerosol inhaler 2 puff INHALATION DAILY Patient Comments: INHALE ONE PUFF BY MOUTH TWICE A DAY - RINSE MOUTH AFTER USING buspirone 5 mg tablet 5 mg PO BID Patient Comments: TAKE ONE TABLET BY MOUTH TWO TIMES A DAY Discharge Instructions Instructions: Shoulder Pain ED Additional Instructions: * xray imaging is unremarkable * please take 600 mg of motrin every 6 hours for the next few days * make sure to do stretching and gentle range of motion of your shoulder * if you are continuing to have limited movement or pain, please follow up for MRI Stand Alone Forms: Work Release Discharge Data Discharge Date/Time-TO BE ENTERED AT DEPARTURE: 08/25/24 14:44 HPI General Date/Time Provider Initiated Documentation: 08/25/24 13:55 . Limitations to Documentation: no limitations . Information obtained by: patient . HPI Narrative: 44-year-old female without significant past medical history presents for evaluation of right shoulder pain. 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 She felt like her shoulder just gave out. She did not hear a pop. She reports pain and soreness that is worse with movement of her shoulder. She denies any numbness or tingling. She denies any prior history of shoulder problems. She reports that she did take 1 dose of Tylenol earlier this morning without resolution of her symptoms. Related Data Home Medications ?Medication ?Instructions ?Recorded ?Confirmed albuterol sulfate 90 mcg/actuation 2 puff inhalation Q4H PRN ##1 07/09/14 08/25/24 aerosol inhaler biotin 5 mg capsule 1 cap PO DAILY 04/27/15 08/25/24 cholecalciferol (vitamin D3) 125 1 tab PO DAILY 04/27/15 08/25/24 mcg (5,000 unit) tablet loratadine 10 mg tablet 10 mg PO DAILY 04/27/15 08/25/24 folic acid 1 mg tablet 1 mg PO DAILY 03/03/18 08/25/24 [id number]-ehif-yzfa 8 mg-folic 400 1 ea PO DAILY 03/03/18 08/25/24 mcg-K 50 mcg-lutein 300 mcg tablet (Centrum Silver Women) scopolamine base 1 mg over 3 days 1 patch transdermal Q72H PRN 07/09/20 08/25/24 transdermal patch nausea and vomiting #24 ea montelukast 10 mg tablet 10 mg PO DAILY 01/28/21 08/25/24 topiramate 100 mg tablet 100 mg PO BID 01/28/21 08/25/24 budesonide-formoterol HFA 160 2 puff inhalation DAILY 12/06/22 08/25/24 mcg-4.5 mcg/actuation aerosol inhaler (Symbicort) meclizine 25 mg tablet 25 mg PO TID PRN 03/12/23 08/25/24 trazodone 100 mg tablet 100 mg PO QHS PRN 03/12/23 08/25/24 lurasidone 120 mg tablet (Latuda) 80 mg PO QPM 04/28/23 08/25/24 acetaminophen 500 mg tablet 1,000 mg (2 x 500 mg) PO TID #90 05/13/23 08/25/24 tabs buspirone 5 mg tablet 5 mg PO BID 07/16/24 08/25/24 Previous Rx's ?Medication ?Instructions ?Recorded albuterol sulfate 90 mcg/actuation 2 puff inhalation Q4H PRN ##1 07/09/14 aerosol inhaler scopolamine base 1 mg over 3 days 1 patch transdermal Q72H PRN 07/09/20 transdermal patch nausea and vomiting #24 ea acetaminophen 500 mg tablet 1,000 mg (2 x 500 mg) PO TID #90 05/13/23 tabs Allergies Allergy/AdvReac Type Severity Reaction Status Date / Time Penicillins Allergy Severe Anaphylaxsis, Verified 08/25/24 13:52 throat tightness divalproex sodium (From Allergy Intermediate Other (See Verified 08/25/24 13:52 Depakote) Comment) hydrocodone (From Vicodin) Allergy Intermediate rash Verified 08/25/24 13:52 latex Allergy Intermediate Topical Verified 08/25/24 13:52 Irritation aspirin AdvReac Severe increases Verified 08/25/24 13:52 toxicity combined w/ lithium General Stated Complaint: Orthopedic DENNIS: 4 Exam Narrative Exam Narrative: Review of Systems: All systems reviewed & are unremarkable except as noted in HPI and below Well-developed, no acute distress NCAT Unlabored respiratory effort No deformity of right shoulder, neurovascularly intact distally, there is some tenderness to direct palpation anteriorly and laterally, pain with range of motion at the extremes, good strength, no paraspinal or parascapular tenderness Course Vital Signs Vital signs: Vital Signs Temperature 36.8 C 08/25/24 13:48 Pulse 82 08/25/24 13:48 Respiratory Rate 15 08/25/24 13:48 Blood Pressure 143/84 H 08/25/24 13:48 Pulse Oximetry 98 08/25/24 13:48 Temperature 36.8 C 08/25/24 13:48 Pulse 82 08/25/24 13:48 Respiratory Rate 15 08/25/24 13:48 Respiratory Effort Normal 08/25/24 13:51 Blood Pressure 143/84 H 08/25/24 13:48 Blood Pressure Position Sitting 08/25/24 13:48 Pulse Oximetry 98 08/25/24 13:48 Oxygen Delivery Method Room Air 08/25/24 13:48 Oxygen Flow Rate 0 08/25/24 13:48 Medical Decision Making Emergent evaluation of subacute right shoulder injury. Initial differential includes muscle strain, ligamentous injury, less likely fracture or dislocation. Injury occurred while lifting. Patient does not describe the tray as particularly heavy or awkward. It is an activity that she has done before without difficulty. She is reporting persistent pain. At this time we will give a dose of anti-inflammatory and get x-ray of the right shoulder to evaluate for acute bony process. X-ray does not reveal an acute bony etiology. Recommend continued NSAIDs and range of motion exercises. If symptoms are not improving. I recommend that she follow-up with occupational health for reevaluation of symptoms and MRI as needed. Quality:SDOH Health Related Social Needs: No Data to Display PFSH All Active Problems (Updated 08/25/24 @ 14:35 by Ya Yanez MD) Acute pain of right shoulder (Acute) Encounter for pre-employment examination (Acute) Ganglion cyst of volar aspect of right wrist (Acute) S/P Excision: 05/13/2023; 05/14/2021 Contusion of left index finger (Acute) Medical History Tobacco use Periodic limb movement disorder Bipolar 1 disorder (01/08/18) Depression (01/08/18) Obesity (BMI 30.0-34.9) (01/08/18) Environmental allergies Asthma Surgical History Hx of tubal ligation Social History Smoking/Tobacco Use Status: Former Tobacco Use Quit Date: 07/12/22 Smoking risk assessment performed?: Yes Alcohol Intake: current Alcohol Intake frequency: holidays/special occasions only Drug use: Occasionally Substance use type: marijuana Housing: apartment Do you feel safe at home: Yes Do you feel safe in your relationship?: Yes
--- OUTSIDE RECORDS SUMMARY | 2024-08-25 14:29 | XMS_ITS | Encounter Summary ---
Author Organization [facility] Address [address] [place] [address] Care Team Providers Care Business Line Controller Name Role Phone Unavailable Primary Care Provider Unavailabl e Encounter Details Date Type Department Care Team (Late st Contact Info) Description 05/02/2008 Office Visit [facility] [place] [facility] [address] [place] [address] Alexa Mckeon PA Social History Tobacco Use Types Packs/Day Years Used Date Smoking Tobacco: Never Assessed Comments Unknown Sex and Gender Information Value Date Recorded Sex Assigned at Not on file Legal Sex Female 18:27 EST Gender Identity Not on file Sexual Orientation [...] The injury happened just prior to arrival. (fa). opened door over toe. seen in ft [...] been reviewed by the Emergency Department physician news production assistant. Continue taking the following medications: (depression [...] referrals. Patient verbalized understanding. Written instructions providedin Lao. The patient was discharged (staying on B5 [...]
--- OUTSIDE RECORDS SUMMARY | 2024-08-25 14:29 | XMS_ITS | Encounter Summary ---
Author Organization [facility] Address [address] [place] [address] Care Team Providers Care Director Social Service Name Role Phone Chris Bhatt MD Primary Care Provider +1- [phone] Encounter Details Date Type Department Care Team (Late st Contact Info) Description 07/22/2019 Results Only [facility] [phone] Cooper Gonzalez, [facility] [address] [place] [id number] Social History Tobacco Use Types Packs/Day Years Used Date Smoking Tobacco: Never Smokeless Tobacco: Never Alcohol Use Standard Drinks/Week Comments No 0 (1 standard drink = 0.6 oz pur e alcohol) Comments Unknown Sex and Gender Information Value [...] ? JANET FONTAINE ? Accession #: ? [id number] ? : ? 1980 (Age: 39) ??F [...] Z11.51 FAX - Request for Fax report: [phone] Specimen/Source: ??Pap Test, Cervix, ThinPrep Imaging System [...] types 16,18,31,33,35, 39,45,51,52,56,58, 59,66, and 68 by regional sales leader mediated amplification. Comments Document reviewed and electronically signed by: ? System Interface ? Report date: 07/28/2019 By the signature above, the attending physician certifies that he/she has personally conducted a gross and/or microscopic examination of the described specimens and rendered or confirmed the above diagnosis. End of Report [facility] 07/22/2019 07/25/2019 us Cooper Youngblood DNP PATHOLOGY ORDERABLES Tisha hines Result [facility] [address] [place] [address] documented in this encounter Visit Diagnoses Not on filedocumented in this encounter Care Teams Director Social Service Relationship Specialty Start Date End Date Chris Bhatt MD [address] [place] [address] [place] [phone] PCP - General 08/15/10 documented as of this encounter
--- OUTSIDE RECORDS SUMMARY | 2024-08-25 14:29 | XMS_ITS | Encounter Summary ---
Author Organization [facility] Address [address] [place] [address] Care Team Providers Care Health Management Consultant Name Role Phone Unavailable Primary Care Provider Unavailabl e Encounter Details Date Type Department Care Team (Late st Contact Info) Description 03/30/2007 13:42 EDT Hospital Encounter [facility] [address] [place] [address] Geraldine Marroquin MD [address] [facility], [address] [place] [address] Social History Tobacco Use Types Packs/Day Years Used Date Smoking Tobacco: Never Smokeless Tobacco: Never Alcohol Use Standard Drinks/Week Comments No 0 (1 standard drink = 0.6 oz pur e alcohol) Interpersonal Safety Answer Date Record ed Physically Hurt Never 05/13/2020 Verbally Threaten Not on file 05/13/2020 Comments Unknown Sex and Gender Information Value Date Recorded Sex Assigned at Not on file Legal Sex Female 18:27 EST Gender Identity Not on file Sexual Orientation Not on file documented as of this encounter Plan of Treatment Not on file documented as of this encounter Procedures Procedure Name Priority Date/Time Associated Diagnosis Comments SKILLED NURSING BIOPHYSICAL PROFILE 03/30/2007 16:55 EDT documented in this encounter Results * SKILLED NURSING BIOPHYSICAL PROFILE (03/30/2007 16:55 EDT) Anatomical Region Laterality Modality Other 03/30/2007 16:5 5 EDT Narrative 04/11/2009 11:27 EDT BPP/DOPPLER/GROWTH, WITH NST Please refer to the separate [facility] report. ??Contact Maternal Medicine. Procedure Note Phli Jc MD - 04/11/2009 BPP/DOPPLER/GROWTH, WITH NST Please refer to the separate [facility] report. Contact Maternal Medicine. us Ciera RICHTER IMG US SKILLED NURSING ORDERABLES Fi nal Result documented in this encounter Visit Diagnoses Not on filedocumented in this encounter
--- OUTSIDE RECORDS SUMMARY | 2024-08-25 14:29 | XMS_ITS | Encounter Summary ---
Author Organization [facility] Address [address] [place] [address] Care Team Providers Care Cooperer Name Role Phone Unavailable Primary Care Provider Unavailabl e Encounter Details Date Type Department Care Team (Late st Contact Info) Description 03/19/2001 Results Only [facility] [address] [place] [address] Bhavana Mendoza CNM [address] [id number] Social History Tobacco Use Types Packs/Day Years [...] ? JANET FONTAINE ? Accession #: ? [id number] : ? 1980 (Age: 20) ??F ?Collect Date: ? 03/19/2001 Location: ? [facility] ? Receive Date: ? 03/23/2001 Provider: ?SYLVIEJosefina AVIS CNM Copy to: ? Specimen/Source: ?ThinPrep Pap [...] End of Report [facility]ANN MAYORGA 03/19/2001 03/23/2001 us Bhavana Peresleia CNM PATHOLOGY ORDERABLES Edited [facility] MAYORGA [address] [place] [address] documented in this encounter Visit Diagnoses Not on filedocumented in this encounter
--- OUTSIDE RECORDS SUMMARY | 2024-08-25 14:29 | XMS_ITS | Clinical Summary ---
Author Organization [facility] Address [address] [place] [address] Care Team Providers Care Solar Photovoltaic Installer Name Role Phone Chris Bhatt MD Primary Care Provider +1- [phone] Allergies Active Allergy Reactions Criticality Noted Date Comments Penicillins 08/15/2010 Medications levalbuterol (XOPENEX) 0.63 mg/3 mL nebulization Inhale [...] - 19+ 3-dose series) 03/25 COVID-19 Vaccine (2023-25 season) 2024 [address] [place] [address] MEDICAID [place] Care Teams Solar Photovoltaic Installer Relationship Specialty Start Date End Date Chris Bhatt MD [address] [place] [address] [place] [phone] PCP - General 08/15/10
--- OUTSIDE RECORDS SUMMARY | 2024-08-25 14:29 | XMS_ITS | Encounter Summary ---
Author Organization [facility] Address [address] [place] [address] Care Team Providers Care Interior Specialist Name Role Phone Chris Bhatt MD Primary Care Provider +1- [phone] Encounter Details Date Type Department Care Team (Late st Contact Info) Description 11/17/2023 Lab Requisition [facility] Pathology & Laboratory Medicine - [facility] [address] [place] [address] Outr Resulting Lab, Provider Social History Tobacco [...] 8:20 EST) Hold Hold 11/17/2023 19:01 EST [facility] Blood VENOUS BLOOD / Unknown 11/17/2023 8:20 EST 11/17/2023 18:00 EST us Provider Outr Resulting Lab LAB INFO SERVICE AND SUPPORT & PHONE RESULT Final Result Performing Organization Address [facility] de Phone Number [facility] [address] [place] [address] * HEPATITIS B SURFACE ANTIBODY (11/17/2023 8:20 EST) Pathologist [facility] Hep B Surface Ab, Quantitative >1,000.0 See Note mIU/mL 11/17/2023 19:16 [facility] Comment: Reference Range for Hep B Surface Ab, Quant: Positive: >= 10.0 mIU/mL Negative: ??< 10.0 mIU/mL Patient is presumed to be immune to infection with Hepatitis B Virus. Hep B Surface Ab, Qualitative Positive See Note 11/17/2023 19:16 [facility] Comment: Reference Range for Hep B Surface Ab, Qual: Unvaccinated: ??Negative Vaccinated: ??Positive Blood VENOUS BLOOD / Unknown 11/17/2023 8:20 EST 11/17/2023 17:59 EST us Provider Outr Resulting Lab CHEMISTRY & BLOOD GA S ORDERABLES Final Result Performing Organization Address [facility] Co de Phone Number [facility] [address] [place] [address] * HEPATITIS B CORE ANTIBODY (TOTAL) (11/17/2023 8:20 EST) Pathologist [facility] Hepatitis B Core Ab, Total Negative Negative 11/17/2023 21:36 EST [facility] Blood VENOUS BLOOD / Unknown 11/17/2023 8:20 EST 11/17/2023 17:59 EST us Provider Outr Resulting Lab CHEMISTRY & BLOOD GA S ORDERABLES Final Result Performing Organization Address City/[facility]/ZIP Co de Phone Number [facility] [address] [place] [address] * HEPATITIS B SURFACE ANTIGEN (11/17/2023 8:20 EST) Hep B Surface Ag Negative Negative 11/17/2023 21:06 EST [facility] Blood VENOUS BLOOD / Unknown 11/17/2023 8:20 EST 11/17/2023 17:59 EST us Provider Outr Resulting Lab CHEMISTRY & BLOOD GA S ORDERABLES Final Result Performing Organization Address City/[facility] Co de Phone Number [facility] [address] [place] [address] documented in this encounter Visit Diagnoses Not on filedocumented in this encounter Care Teams Interior Specialist Relationship Specialty Start Date End Date Chris Bhatt MD [address] [place] [address] [place] [phone] PCP - General 08/15/10 documented as of this encounter
--- OUTSIDE RECORDS SUMMARY | 2024-08-25 14:29 | XMS_ITS | Referral Summary ---
Author Organization [facility] Address [address] [place] [address] Care Team Providers Care Chief Strategy Officer Name Role Phone Chris Bhatt MD Primary Care Provider +1- [phone] Allergies Active Allergy Reactions Criticality Noted Date [...] - Plan of Treatment Not on file Insurance [address] [place] [address] MEDICAID [place]CO [place] Care Teams Chief Strategy Officer Relationship Specialty Start Date End Date Chris Bhatt MD [address] [place] [address] [place] [phone] PCP - General 08/15/10
--- OUTSIDE RECORDS SUMMARY | 2024-08-25 14:29 | XMS_ITS | Encounter Summary ---
Author Organization [facility] Address [address] [place] [address] Care Team Providers Care Tax Services Manager Name Role Phone Chris Steiner MD Primary Care Provider +1- [phone] Reason for Visit * Reason Comments Asthma Pts son is admitted upstairs, pt did not bring her inhaler from home, awoke tonight with asthma exacerbation. + insp/exp wheezing. Encounter Details Date Type Department Care Team (Late st Contact Info) Description 08/15/2010 2:48 EDT - 08/15/2010 5:00 EDT Emergency [facility] Emergency Department - [address] [id number] Allison Jo MD [address] [place] [address], [address] [place] [address] Emergency, MD Kamron Asthma with [...] from the original note were not included. [facility] Patient Instructions Asthma Attack: After Your Visit [...] Where can you learn more? Go to [email or web address] Enter B821 in the search box to learn more about Asthma Attack: After Your Visit to the Emergency Room. ?? 2005 - 2008 [employer]. Care instructions adapted under license by [facility], [facility] . This care instruction is for use with your licensed healthcare professional. If you have questions about a medical condition or this instruction, always ask your healthcare professional. [employer] disclaims any warranty or liability for your use of this information. documented in this encounter Medications at Time of Discharge budesonide (PULMICORT FLEXHALER) 180 mcg/Inhalation inhaler Inhale 180 mcg as directed 2 times daily. levalbuterol (XOPENEX) 0.63 mg/3 mL nebulization Inhale 0.63 mg as directed every 4 hours as needed. documented as of this encounter Discharge Disposition Disposition Code Departure Means Destination Home or Self Care documented in this encounter ED Notes * Allison Jo MD - 08/15/2010 2105 EDT DOS: 08/15/2010 Chief Complaint Patient presents [...] may reflect changes made after this encounter. budesonide (PULMICORT FLEXHALER) 180 mcg/Inhalation inhaler Inhale [...] RN) documented in this encounter Care Teams Tax Services Manager Relationship Specialty Start Date End Date Chris Steiner MD [address] [place] [address] [place] [phone] PCP - General 08/15/10 documented as of this encounter
--- OUTSIDE RECORDS SUMMARY | 2024-08-25 14:29 | XMS_ITS | Encounter Summary ---
Author Organization [facility] Address [address] [place] [address] Care Team Providers Care Outside Industrial Sales Representative Name Role Phone Chris Bhatt MD Primary Care Provider +1- [phone] Encounter Details Date Type Department Care Team (Late st Contact Info) Description 03/04/2018 Results Only [facility] [phone] Hanna Esqueda MD [address] [place] [phone] Social History Tobacco Use Types Packs/Day [...] reading/interpret ing unformatted reports. Name: ? JANET POWELL ? Accession #: ? [id number] ? : ? 1980 (Age: 37) ??F ? Collect Date: ? 03/04/2018 ? Location: ? [facility] ? Receive Date: ? 03/04/2018 ? Provider: HANNA ESQUEDA MD Copy to: PATRICK TOMAS VP ANALYSIS ? Final Pathologic Diagnosis: A. FALLOPIAN TUBE, [...] surface. Sectioning reveals a patent, unremarkable lumen. Optical Effects Layout Person sections, to include the trisected fimbria, are submitted in A1 and A2. B. ?Received in formalin labelled with proper patient identification (initials A, S) and R fallopian tube is a 6.0 cm in length x 0.5 cm in diameter fimbriated fallopian tube. The serosa is dusky purple-steele. Sectioning reveals a patent, unremarkable lumen. Optical Effects Layout Person sections, to include the bisected fimbria, are [...] (ASCP) 03/05/2018 8:50 AM End of Report [facility] 03/04/2018 21:2 8 EDT 03/04/2018 21:28 EDT us Hanna Esqueda MD PATHOLOGY ORDERABLES Final R esult [facility] [address] [place] [address] documented in this encounter Visit Diagnoses Not on filedocumented in this encounter Care Teams Outside Industrial Sales Representative Relationship Specialty Start Date End Date Chris Bhatt MD [address] [place] [phone] PCP - General 08/15/10 documented as of this encounter
--- OUTSIDE RECORDS SUMMARY | 2024-08-25 14:29 | XMS_ITS | Encounter Summary ---
Author Organization [facility] Address [address] [place] [address] Care Team Providers Care Cordwainer Name Role Phone Chris Bhatt MD Primary Care Provider +1- [phone] Encounter Details Date Type Department Care Team (Late st Contact Info) Description 11/18/2023 Lab Requisition [facility] Pathology & Laboratory Medicine - [facility] [address] [place] [address] Outr Resulting Lab, Provider Social History Tobacco [...] Quantiferon Interpretation Negative Negative 11/19/2023 12:03 EST [facility] Comment:No interferon-gamma response to M. tuberculosis antigens was detected. ??Infection with M. tuberculosis is unlikely. A single negative result does not exclude infection with M. tuberculosis. ??In patients at high risk for M. tuberculosis infection, a second test should be considered. TB1 Ag minus Nil 0.01 IU/ml 11/19/19 12:03 EST [facility] TB2 Ag minus Nil 0.01 IU/mL 11/19/19 12:03 EST [facility] Blood VENOUS BLOOD / Unknown 11/17/2023 8:20 EST 11/19/2023 11:57 EST us Provider Outr Resulting Lab IMMUNOLOGY AND SEROL OGY ORDERABLES Final Result Performing Organization Address [facility] Co de Phone Number [facility] [address] [place] [address] * QUANTIFERON MITOGEN (PERFORMABLE) (11/17/2023 8:20 EST) Blood VENOUS BLOOD / Unknown 11/17/2023 8:20 EST 11/18/2023 17:00 EST us Provider Outr Resulting Lab IMMUNOLOGY AND SEROL OGY ORDERABLES Final Result [facility] [address] [place] [address] * QUANTIFERON TB2 (PERFORMABLE) (11/17/2023 8:20 EST) Blood VENOUS BLOOD / Unknown 11/17/2023 8:20 EST 11/18/2023 17:00 EST us Provider Outr Resulting Lab IMMUNOLOGY AND SEROL OGY ORDERABLES Final Result Performing Organization Address [facility]/ZIP Co de Phone Number [facility] [address] [place] [address] * QUANTIFERON TB1 (PERFORMABLE) (11/17/2023 8:20 EST) Blood VENOUS BLOOD / Unknown 11/17/2023 8:20 EST 11/18/2023 17:00 EST us Provider Outr Resulting Lab IMMUNOLOGY AND SEROL OGY ORDERABLES Final Result Performing Organization Address [facility] de Phone Number [facility] [address] [place] [address] * QUANTIFERON NIL (PERFORMABLE) (11/17/2023 8:20 EST) Blood VENOUS BLOOD / Unknown 11/17/2023 8:20 EST 11/18/2023 17:00 EST us Provider Outr Resulting Lab IMMUNOLOGY AND SEROL OGY ORDERABLES Final Result Performing Organization Address [facility] de Phone Number [facility] [address] [place] [address] documented in this encounter Visit Diagnoses Not on filedocumented in this encounter Care Teams Cordwainer Relationship Specialty Start Date End Date Chris Bhatt MD [address] [place] [address] [place] [address] PCP - General 08/15/10 documented as of this encounter
--- OUTSIDE RECORDS SUMMARY | 2024-08-25 14:29 | XMS_ITS | Encounter Summary ---
Author Organization [facility] Address [address] [place] [address] Care Team Providers Care Java Xml Developer Name Role Phone Unavailable Primary Care Provider Unavailabl e Encounter Details Date Type Department Care Team (Late st Contact Info) Description 01/06/2002 Results Only [facility] - Maple conversion [address] [place] [address] Mar [address] [place], [place] [address] Social History Tobacco Use Types Packs/Day Years [...] ? JANET FONTAINE ? Accession #: ? [id number] : ? 1980 (Age: 21) ??F ?Collect Date: ? 01/06/2002 Location: ? [facility] ? Receive Date: ? 01/10/2002 Provider: ?MAR PAYNE CNM Copy to: ? [...] of Report [facility] MAYOR[facility] 01/06/2002 01/10/2002 Mar Payne CNM PATHOLOGY ORDERABLES Final Res ult [facility] [address] [place] [address] documented in this encounter Visit Diagnoses Not on filedocumented in this encounter
--- OUTSIDE RECORDS SUMMARY | 2024-08-25 14:29 | XMS_ITS | Encounter Summary ---
Author Organization [facility] Address [address] [place] [address] Care Team Providers Care Quality Control Technician Name Role Phone Unavailable Primary Care Provider Unavailabl e Encounter Details Date Type Department Care Team (Late st Contact Info) Description 01/28/2007 16:00 EDT Hospital Encounter [facility] - Other [address] [place] [address] Geraldine Marroquin MD [address] [facility], [address] [place] [id number] Ciera Mason, [address] [address] Social History Tobacco Use Types Packs/Day Years [...] Procedure Name Priority Date/Time Associated Diagnosis Comments HALF-WAY FOLLOW-UP 02/15/2007 19:44 EDT HALF-WAY DETAILED 01/28/2007 18:27 EDT IGM Routine 01/28/2007 16:43 EDT IGG Routine 01/28/2007 16:43 EDT documented in this encounter Results * HALF-WAY FOLLOW-UP (02/15/2007 19:44 EDT) Anatomical Region Laterality Modality Other 02/15/2007 19:4 4 EDT Narrative 04/11/2009 13:33 EDT FOLLOW UP,[id number]/[id number] Please refer to the separate [facility] report. ??Contact Maternal Medicine. Procedure Note Phil Jc MD - 04/11/2009 FOLLOW UP,[id number]/GROWTH Please refer to the separate [facility] report. Contact Maternal Medicine. [facility] Fi nal Result * HALF-WAY DETAILED (01/28/2007 18:27 EDT) Anatomical Region Laterality Modality Other 01/28/2007 18:2 7 EDT Narrative 04/11/2009 13:31 EDT [id number], Detailed, Abdominal ascites of unknown etiology Please refer to the separate [facility] report. ??Contact Maternal Medicine. Procedure Note Geraldine Marroquin MD - 04/11/2009 [id number], Detailed, Abdominal ascites of unknown etiology Please refer to the separate [facility] report. Contact Maternal Medicine. Ciera Mason CNM [facility] ORDERABLES Fi nal Result * IGM (01/28/2007 16:43 EDT) IgM 109 46 - 304 mg/dl LEANN MAYORGA 01/28/2007 16:4 3 EDT 01/28/2007 16:50 EDT Geraldine Marroquin MD CHEMISTRY & BLOOD GAS ORDERA BLES Final Result [facility] [address] [place] [address] * IGG (01/28/2007 16:43 EDT) IgG 760 751 - 1560 mg/dl LEANN MAYORGA 01/28/2007 16:4 3 EDT 01/28/2007 16:50 EDT us Geraldine Marroquin MD CHEMISTRY & BLOOD GAS ORDERA BLES Final Result [facility] [address] [place] [address] documented in this encounter Visit Diagnoses Not on filedocumented in this encounter
--- OUTSIDE RECORDS SUMMARY | 2024-08-25 14:29 | XMS_ITS | Encounter Summary ---
Author Organization [facility] Address [address] [place] [address] Care Team Providers Care Factory Maintenance Manager Name Role Phone Chris Bhatt MD Primary Care Provider +1- [phone] Encounter Details Date Type Department Care Team (Late st Contact Info) Description 05/04/2015 Results Only [facility] [phone] David Penn MD [address] [place] [phone] Social History Tobacco Use Types Packs/Day [...] ? JANET FONTAINE ? Accession #: ? [id number] ? : ? 1980 (Age: 35) ??F [...] 1. 05/07/2015 9:38 AM End of Report [facility] 05/04/2015 18:4 4 EDT 05/04/2015 18:44 EDT us David Penn MD PATHOLOGY ORDERABLES Final Result [facility] [address] [place] [address] documented in this encounter Visit Diagnoses Not on filedocumented in this encounter Care Teams Factory Maintenance Manager Relationship Specialty Start Date End Date Chris Bhatt MD [address] [place] [address] [place] [address] PCP - General 08/15/10 documented as of this encounter
--- OUTSIDE RECORDS SUMMARY | 2024-08-25 14:29 | XMS_ITS | Encounter Summary ---
Author Organization [facility] Address [address] [place] [address] Care Team Providers Care Maintenance Analyst Name Role Phone Unavailable Primary Care Provider Unavailabl e Encounter Details Date Type Department Care Team (Late st Contact Info) Description 02/12/2010 Results Only [facility]- [facility] [phone] Ernesto Preston, ASHELY [address] [place] [address] [address] [place], [place] [phone] Social History Tobacco Use Types Packs/Day Years [...] 8 EDT 02/22/2010 10:08 EDT Ernesto Preston ACCOUNT EXECUTIVE SALES REPRESENTATIVE MICROBIOLOGY - GENERAL ORDERABL ES Final Result [facility] [address] [place] [address] * CYTOPATHOLOGY (02/12/2010 0:00 EDT) Pathology Report: CYTOPATHOLOGY REPORT ? Reports generated via electronic interface contain original data; ? however they are lacking the format of the original report. ? Caution should be taken when reading/interpreti ng unformatted reports. ? Name: ? JANET FONTAINE ? Accession #: ? [id number] ? : ? 1980 (Age: 29) ??F ?Collect Date: ? 02/12/2010 ? Location: ? [facility] ? Receive Date: ? 02/14/2010 ? Provider: ?ERNESTO O PRESTON LEAN LEADER ? Copy to: ? Specimen/Source: ?Pap Test, [...] 12:53 ? End of Report ? LEANN MAYORGA 02/12/2010 02/14/2010 us Ernesto Preston ACCOUNT EXECUTIVE SALES REPRESENTATIVE PATHOLOGY ORDERABLES Final Resu lt [facility] [address] [place] [address] documented in this encounter Visit Diagnoses Not on filedocumented in this encounter
--- OUTSIDE RECORDS SUMMARY | 2024-08-25 14:29 | XMS_ITS | Encounter Summary ---
Author Organization [facility] Address [address] [place] [address] Care Team Providers Care Herpetology Teacher Name Role Phone Unavailable Primary Care Provider Unavailabl e Encounter Details Date Type Department Care Team (Late st Contact Info) Description 01/28/2007 Before PRISM Converted Visit (Maple) [facility] - Maple conversion [address] [place], [place] [address] Geraldine Marroquin MD [address] [facility], [address] [place] [address] Social History Tobacco Use Types [...] DIVISION OF MATERNAL MEDICINE January 28, 2007 Ciera Mason CNM [facility] MERGERS AND ACQUISITIONS CONSULTANT [address] [place] [address] Dear Ciera: Thank you for referring Ms. [...] Marroquin MD P - dis Job ID: [id number] Document ID: [id number] cc: documented in this encounter Plan of Treatment Not on file documented as of this encounter Visit Diagnoses Not on filedocumented in this encounter
--- OUTSIDE RECORDS SUMMARY | 2024-08-25 14:29 | XMS_ITS | Encounter Summary ---
Author Organization [facility] Address [address] [place] [address] Care Team Providers Care Corporate Driver Name Role Phone Chris Bhatt MD Primary Care Provider +1- [phone] Encounter Details Date Type Department Care Team (Latest Contact Info) Description 05/04/2015 15:27 EDT - 05/04/2015 23:59 EDT Hospital Encounter [address] [address] Unknown, Provider, MD Discharge Disposition: Home or Self Care [...] on filedocumented in this encounter Care Teams Corporate Driver Relationship Specialty Start Date End Date Chris Bhatt MD [address] [place] [address] [place] [address] PCP - General 08/15/10 documented as of this encounter
--- OUTSIDE RECORDS SUMMARY | 2024-08-25 14:29 | XMS_ITS | Encounter Summary ---
Author Organization [facility] Address [address] [place] [address] Care Team Providers Care Messenger Office Name Role Phone Chris Bhatt MD Primary Care Provider +1- [phone] Encounter Details Date Type Department Care Team (Latest Contact Info) Description 03/04/2018 12:07 EDT - 03/04/2018 23:59 EDT Hospital Encounter [address] [address] Unknown, Provider, MD Discharge Disposition: Home or [...] Code Departure Means Destination Home or Self Correction documented in this encounter Plan of Treatment Not on file documented as of this encounter Visit Diagnoses Not on filedocumented in this encounter Care Teams Messenger Office Relationship Specialty Start Date End Date Chris Bhatt MD [address] [place] [address] [place] [phone] PCP - General 08/15/10 documented as of this encounter
--- OUTSIDE RECORDS SUMMARY | 2024-08-25 14:29 | XMS_ITS | Encounter Summary ---
Author Organization [facility] Address [address] [place] [address] Care Team Providers Care Wrecking Car Driver Name Role Phone Chris Bhatt MD Primary Care Provider +1- [phone] Encounter Details Date Type Department Care Team (Late st Contact Info) Description 11/17/2023 Lab Requisition [facility] Pathology & Laboratory Medicine - [facility] [address] [place] [address] Outr Resulting Lab, Provider Social History Tobacco [...] 8:20 EST) Hold Hold 11/17/2023 19:01 EST [facility] Blood VENOUS BLOOD / Unknown 11/17/2023 8:20 EST 11/17/2023 18:00 EST us Provider Outr Resulting Lab LAB INFO SERVICE AND SUPPORT & PHONE RESULT Final Result Performing Organization Address City/[facility]/ZIP Co de Phone Number [facility] [address] [place] [address] * MEASLES IGG AB (11/17/2023 8:20 EST) Measles IgG Ab Positive See Note 11/18/2023 10:45 EST [facility] Comment:Presence of detectab le measles virus IgG antibodies. Blood VENOUS BLOOD / Unknown 11/17/2023 8:20 EST 11/17/2023 17:59 EST us Provider Outr Resulting Lab IMMUNOLOGY AND SEROL OGY ORDERABLES Final Result Performing Organization Address City/[facility]/ZIP Co de Phone Number [facility] [address] [place] [address] * VARICELLA IGG ANTIBODY (11/17/2023 8:20 EST) Varicella IgG Ab Positive See Note 11/18/2023 10:41 EST [facility] Comment:Presence of detectab le Varicella Zoster virus IgG antibodies. Blood VENOUS BLOOD / Unknown 11/17/2023 8:20 EST 11/17/2023 17:59 EST us Provider Outr Resulting Lab IMMUNOLOGY AND SEROL OGY ORDERABLES Final Result Performing Organization Address City/[facility]/ZIP Co de Phone Number [facility] [address] [place] [address] * MUMPS ANTIBODY IGG (11/17/2023 8:20 EST) Mumps Antibody IgG Positive See Note 11/18/2023 10:46 EST [facility] Comment:Presence of detectab le mumps virus IgG antibodies. Blood VENOUS BLOOD / Unknown 11/17/2023 8:20 EST 11/17/2023 17:59 EST us Provider Outr Resulting Lab IMMUNOLOGY AND SEROL OGY ORDERABLES Final Result Performing Organization Address City/[facility]/ZIP Co de Phone Number [facility] [address] [place] [address] * RUBELLA IGG ANTIBODY (11/17/2023 8:20 EST) Rubella IgG Ab Positive See Note 11/18/2023 10:48 EST [facility] Comment:Positive for IgG ant ibodies to Rubella virus. Blood VENOUS BLOOD / Unknown 11/17/2023 8:20 EST 11/17/2023 17:59 EST us Provider Outr Resulting Lab CHEMISTRY & BLOOD GA S ORDERABLES Final Result Performing Organization Address [facility] Co de Phone Number [facility] [address] [place] [address] documented in this encounter Visit Diagnoses Not on filedocumented in this encounter Care Teams Wrecking Car Driver Relationship Specialty Start Date End Date Chris Bhatt MD [address] [place] [address] [place] [address] PCP - General 08/15/10 documented as of this encounter
--- OUTSIDE RECORDS SUMMARY | 2024-08-25 14:29 | XMS_ITS | Encounter Summary ---
Author Organization [facility] Address [address] [place] [address] Care Team Providers Care Golf Course Manager Name Role Phone Unavailable Primary Care Provider Unavailabl e Encounter Details Date Type Department Care Team (Latest Contact Info) Description 05/02/2008 20:36 EDT - 05/03/2008 11:59 EDT Hospital Encounter [facility] Emergency Department - [facility] [address] [place], [place] [address] Emergency, Default, MD Discharge Disposition: Home or [...]
--- OUTSIDE RECORDS SUMMARY | 2024-08-25 14:29 | XMS_ITS | Encounter Summary ---
Author Organization [facility] Address [address] [place] [address] Care Team Providers Care Cleaners Name Role Phone Unavailable Primary Care Provider Unavailabl e Encounter Details Date Type Department Care Team (Late st Contact Info) Description 09/11/2006 Results Only [facility] [place] conversion [address] [place] [address] Kevin Mason, [address] [address] Social History Tobacco Use Types Packs/Day Years [...] ? JANET FONTAINE ? Accession #: ? [id number] : ? 1980 (Age: 26) ??F ?Collect Date: ? 09/11/2006 Location: ? [facility] ? Receive Date: ? 09/14/2006 Provider: ?KEVIN RICHTERM Copy to: ? Specimen/Source: ?ThinPrep Pap Test, Cervix/Endocervix, processed on [employer] ThinPrep Imaging System, with manual evaluation Last [...] Document reviewed and electronically signed by: ? GILDARDO Pena(ASCP) ? Report Date: ??09/19/2006 09:53 End of Report [facility] MYA[facility] 09/11/2006 09/14/2006 us Kevin Mason CNM PATHOLOGY ORDERABLES Fin al Result [facility] [address] [place] [address] documented in this encounter Visit Diagnoses Not on filedocumented in this encounter
--- OUTSIDE RECORDS SUMMARY | 2024-08-25 14:29 | XMS_ITS | Encounter Summary ---
Author Organization [facility] Address [address] [place] [address] Care Team Providers Care Sales Representative [facility]om[facility] Name Role Phone Unavailable Primary Care Provider Unavailabl e Encounter Details Date Type Department Care Team (Late st Contact Info) Description 01/11/2003 Results Only [facility] - Maple conversion [address] [place] [address] [place], [place] [address] Social History Tobacco Use Types Packs/Day Years [...] ? JANET FONTAINE ? Accession #: ? [id number] : ? 1980 (Age: 22) ??F ?Collect [...] reviewed and electronically signed by: ? ROSALINA Johansen(ASCP) ? Report Date: ??01/18/2003 08:42 End of Report LEANN MAYORGA 01/11/2003 01/13/2003 us Mar Payne CNM PATHOLOGY ORDERABLES Final Res ult [facility] [address] [place] [address] documented in this encounter Visit Diagnoses Not on filedocumented in this encounter
--- OUTSIDE RECORDS SUMMARY | 2024-08-25 14:29 | XMS_ITS | Encounter Summary ---
Author Organization [facility] Address [address] [place] [address] Care Team Providers Care Special Loan Officer Name Role Phone Unavailable Primary Care Provider Unavailabl e Encounter Details Date Type Department Care Team (Late st Contact Info) Description 05/24/2007 Results Only [facility] [place] [address] [place] [address] Kevin Mason, [address] [phone] Social History Tobacco Use Types Packs/Day Years [...] ? JANET FONTAINE ? Accession #: ? [id number] : ? 1980 (Age: 27) ??F ?Collect Date: ? 05/24/2007 Location: ? [facility] ? Receive Date: ? 05/26/2007 Provider: ?KEVIN RICHTERM Copy to: ? Specimen/Source: ?ThinPrep Pap Test, Cervix/Endocervix, processed on [employer] ThinPrep Imaging System, with manual evaluation Last Menstrual Period: ? None since delivery Menstrual/Pregnanc y Status: ? Post Hormonal/Contracep tive Status: ? Depo-Provera: Inject. Treatment History: ? Colposcopy: 2004 per pt Other: ? Additional clinical information: Previous pap WNL HPVA - HPV testing requested if ASC-US on the current ThinPrep Pap test. ? SPECIMEN ADEQUACY ? Satisfactory for Evaluation - transformation zone component present - scant squamous epithelial component GENERAL CATEGORIZATION ? Negative for Intraepithelial Lesion or Malignancy ? Document reviewed and electronically signed by: ? Chelsey Pritchard, CT(ASCP) ? Report Date: ??06/01/2007 10:31 End of Report [facility] MAYOR[facility] 05/24/2007 05/26/2007 us Kevin Mason CNAura PATHOLOGY ORDERABLES Fin al Result [facility] [address] [place] [address] documented in this encounter Visit Diagnoses Not on filedocumented in this encounter
== END 2024-08-25 14:44 | disposition home or self-care (01) ==
PROVIDERS: Emergency Provider Emergency Medicine; PCP Physician Assistant
DX: M25.511 Pain in right shoulder (principal)
CPT/HCPCS: 99283; 73030

== ENCOUNTER 2024-09-19 08:41 | Outpatient (REF) | payer MEDICAID, SELFPAY ==
[2024-09-19 15:11] LABS: ALT 23 U/L (14-59); AST 12 U/L (15-37); Alkaline Phosphatase 47 U/L (46-116); BUN 14 mg/dL (7-18); Bilirubin, Total 0.55 mg/dL (0.2-1.0); CREATININE 0.9 mg/dL (0.55-1.02); Calcium 9.4 mg/dL (8.5-10.1); Calculated LDL 74 mg/dL (<100); Chloride 106 mmol/L (98-107); Cholesterol 175 mg/dL (<200); Estimated GFR 81.86 (mL/min/1.73m2); Glucose 86 mg/dL (74-106); HDL Cholesterol 91 mg/dL (40-60); Potassium 4.5 mmol/L (3.5-5.1); Sodium 143 mmol/L (136-145); Total Protein 7.1 g/dL (6.4-8.2); Triglyceride 50 mg/dL (<150)
== END 2024-09-19 08:42 | disposition home or self-care (01) ==
LOC: NCHCN 08:41
PROVIDERS: PCP Physician Assistant; Visit Provider Physician Assistant
DX: Z13.220 Encounter for screening for lipoid disorders (principal); F31.9 Bipolar disorder, unspecified
CPT/HCPCS: 80053; 80061

== ENCOUNTER 2024-10-19 16:32 | Outpatient (REF) | payer MEDICAID, SELFPAY ==
--- NOTE | 2024-10-19 09:00 | PAPFT_PTH ---
PATIENT: Janet Fontaine LOC: [facility]#:[id number] AGE/SX: 44/F ROOM: RE10/19/[address]: Kalin Ramon : 1980 BED: DIS: 10/19/2024 SPEC #: [id number] RECD: 10/19/24 17:35 STATUS: ELIAS REQ #: [id number] HEMA: 10/19/24 09:[address]: Kalin Ramon DEPT: [facility] Cytology RECD BY: Rachel Galan Tissues: 1 - CX/ENDOCX FOR PAP SMEARS Procedures: PAP THIN PREP/[facility] Screening HPV DNA PROBE Comments: [id number] (HPV 16 & 18/45)
--- OUTSIDE RECORDS SUMMARY | 2024-10-19 16:34 | XMS_ITS | Encounter Summary ---
Author Organization [facility] Address [address] [place] [address] Care Team Providers Care Meat Stringer Name Role Phone Unavailable Primary Care Provider Unavailabl e Encounter Details Date Type Department Care Team (Late st Contact Info) Description 05/24/2007 Results Only [facility] [address] [place] [address] Kevin Mason, [address] [id number] Social History Tobacco Use Types Packs/Day Years [...] ? JANET FONTAINE ? Accession #: ? [id number] : ? 1980 (Age: 27) ??F ?Collect Date: ? 05/24/2007 Location: ? [facility] ? Receive Date: ? 05/26/2007 Provider: ?KEVIN RICHTERM Copy to: ? Specimen/Source: ?ThinPrep Pap Test, Cervix/Endocervix, processed on [employer] ThinPrep Imaging System, with manual evaluation Last [...] ORDERABLES Fin al Result [facility] [address] [place] [address] documented in this encounter Visit Diagnoses Not on filedocumented in this encounter
--- OUTSIDE RECORDS SUMMARY | 2024-10-19 16:34 | XMS_ITS | Encounter Summary ---
Author Organization [facility] Address [address] [place] [address] Care Team Providers Care Manager Environmental Health And Safety Name Role Phone Unavailable Primary Care Provider Unavailabl e Encounter Details Date Type Department Care Team (Late st Contact Info) Description 01/28/2007 16:00 EDT Hospital Encounter [facility] - Other [address] [place] [address] Geraldine Marroquin MD [address] [facility], Level 4 [place] [phone] Ciera Mason, [address] [id number] Social History Tobacco Use Types Packs/Day Years [...] Procedure Name Priority Date/Time Associated Diagnosis Comments USP FOLLOW-UP 02/15/2007 19:44 EDT USP DETAILED 01/28/2007 18:27 EDT IGM Routine 01/28/2007 16:43 EDT IGG Routine 01/28/2007 16:43 EDT documented in this encounter Results * USP FOLLOW-UP (02/15/2007 19:44 EDT) Anatomical Region Laterality Modality Other 02/15/2007 19:4 4 EDT Narrative 04/11/2009 13:33 EDT FOLLOW UP,00517/GROWTH Please refer to the separate [facility] report. ??Contact Maternal Medicine. Procedure Note Phil Jc MD - 04/11/2009 FOLLOW UP,98046/GROWTH Please refer to the separate [facility] report. Contact Maternal Medicine. [facility] ORDER[facility] Fi nal Result * USP DETAILED (01/28/2007 18:27 EDT) Anatomical Region Laterality Modality Other 01/28/2007 18:2 7 EDT Narrative 04/11/2009 13:31 EDT 76923, Detailed, Abdominal ascites of unknown etiology Please refer to the separate [facility] report. ??Contact Maternal Medicine. Procedure Note Geraldine Marroquin MD - 04/11/2009 [id number], Detailed, Abdominal ascites of unknown etiology Please refer to the separate [facility] report. Contact Maternal Medicine. Ciera Mason CNM [facility] ORDERABLES Fi nal Result * IGM (01/28/2007 16:43 EDT) IgM 109 46 - 304 mg/dl [facility] 01/28/2007 16:4 3 EDT 01/28/2007 16:50 EDT Geraldine Marroquin MD CHEMISTRY & BLOOD GAS ORDERA BLES Final Result [facility] [address] [place] [address] * IGG (01/28/2007 16:43 EDT) IgG 760 751 - 1560 mg/dl LEANN MAYORGA 01/28/2007 16:4 3 EDT 01/28/2007 16:50 EDT us Geraldine Marroquin MD CHEMISTRY & BLOOD GAS ORDERA BLES Final Result [facility] [address] [place] [address] documented in this encounter Visit Diagnoses Not on filedocumented in this encounter
--- OUTSIDE RECORDS SUMMARY | 2024-10-19 16:34 | XMS_ITS | Encounter Summary ---
Author Organization [facility] Address [address] [place] [address] Care Team Providers Care Account Executive Trainee Name Role Phone Chris Bhatt MD Primary Care Provider +1- [phone] Encounter Details Date Type Department Care Team (Latest Contact Info) Description 05/04/2015 15:27 EDT - 05/04/2015 23:59 EDT Hospital Encounter [address] [address] Unknown, Provider, MD Discharge Disposition: Home or [...] Code Departure Means Destination Home or Self Snf documented in this encounter Plan of Treatment Not on file documented as of this encounter Visit Diagnoses Not on filedocumented in this encounter Care Teams Account Executive Trainee Relationship Specialty Start Date End Date Chris Bhatt MD [address] [place] [address] [place] [phone] PCP - General 08/15/10 documented as of this encounter
--- OUTSIDE RECORDS SUMMARY | 2024-10-19 16:34 | XMS_ITS | Referral Summary ---
Author Organization [facility] Address [address] [place] [address] Care Team Providers Care Exchange Underwriting Consultant Name Role Phone Chris Bhatt MD Primary Care Provider +1- [phone] Allergies Active Allergy Reactions Criticality Noted Date [...] Treatment Not on file Insurance [address] [place] [address] MEDICAID ACO [place] Care Teams Exchange Underwriting Consultant Relationship Specialty Start Date End Date Chris Bhatt MD [address] [place] [address] [place] [phone] PCP - General 08/15/10
--- OUTSIDE RECORDS SUMMARY | 2024-10-19 16:34 | XMS_ITS | Encounter Summary ---
Author Organization [facility] Address [address] [place] [address] Care Team Providers Care Dust Box Worker Name Role Phone Unavailable Primary Care Provider Unavailabl e Encounter Details Date Type Department Care Team (Late st Contact Info) Description 01/28/2007 Before [facility] Converted Visit ([facility]) [facility] conversion [address] [place], [place] [address] Geraldine Marroquin MD 111 [facility], Level 4 [place] [address] Social History Tobacco Use Types [...] MEDICINE January 28, 2007 Ciera Mason CNM [facility] ANESTHESIA RESIDENT [address] [place] [address] Dear Ciera: Thank you for referring Ms. [...] Marroquin MD P - dis Job ID: [id number] Document ID: [id number] cc: documented in this encounter Plan of Treatment Not on file documented as of this encounter Visit Diagnoses Not on filedocumented in this encounter
--- OUTSIDE RECORDS SUMMARY | 2024-10-19 16:34 | XMS_ITS | Encounter Summary ---
Author Organization [facility] Address [address] [place] [address] Care Team Providers Care Electrician Substation Supervisor Name Role Phone Chris Bhatt MD Primary Care Provider +1- [phone] Encounter Details Date Type Department Care Team (Late st Contact Info) Description 11/18/2023 Lab Requisition [facility] Pathology & Laboratory Medicine - [facility] [address] [place] [address] Outr Resulting Lab, Provider Social History Tobacco [...] Quantiferon Interpretation Negative Negative 11/19/2023 12:03 EST [facility] Comment:No interferon-gamma response to M. tuberculosis antigens was detected. ??Infection with M. tuberculosis is unlikely. A single negative result does not exclude infection with M. tuberculosis. ??In patients at high risk for M. tuberculosis infection, a second test should be considered. TB1 Ag minus Nil 0.01 IU/ml 11/19/19 12:03 EST [facility] TB2 Ag minus Nil 0.01 IU/mL 11/19/19 12:03 EST [facility] Blood VENOUS BLOOD / Unknown 11/17/2023 8:20 EST 11/19/2023 11:57 EST us Provider Outr Resulting Lab IMMUNOLOGY AND SEROL OGY ORDERABLES Final Result Performing Organization Address [facility] Co de Phone Number [facility] [address] [place] [address] * QUANTIFERON MITOGEN (PERFORMABLE) (11/17/2023 8:20 EST) Blood VENOUS BLOOD / Unknown 11/17/2023 8:20 EST 11/18/2023 17:00 EST us Provider Outr Resulting Lab IMMUNOLOGY AND SEROL OGY ORDERABLES Final Result [facility] [address] [place] [address] * QUANTIFERON TB2 (PERFORMABLE) (11/17/2023 8:20 EST) Blood VENOUS BLOOD / Unknown 11/17/2023 8:20 EST 11/18/2023 17:00 EST us Provider Outr Resulting Lab IMMUNOLOGY AND SEROL OGY ORDERABLES Final Result Performing Organization Address [facility]/ZIP Co de Phone Number [facility] [address] [place] [address] * QUANTIFERON TB1 (PERFORMABLE) (11/17/2023 8:20 EST) Blood VENOUS BLOOD / Unknown 11/17/2023 8:20 EST 11/18/2023 17:00 EST us Provider Outr Resulting Lab IMMUNOLOGY AND SEROL OGY ORDERABLES Final Result Performing Organization Address [facility]/[place] de Phone Number [facility] [address] [place] [address] * QUANTIFERON NIL (PERFORMABLE) (11/17/2023 8:20 EST) Blood VENOUS BLOOD / Unknown 11/17/2023 8:20 EST 11/18/2023 17:00 EST us Provider Outr Resulting Lab IMMUNOLOGY AND SEROL OGY ORDERABLES Final Result Performing Organization Address [facility]/[place] de Phone Number [facility] [address] [place] [address] documented in this encounter Visit Diagnoses Not on filedocumented in this encounter Care Teams Electrician Substation Supervisor Relationship Specialty Start Date End Date Chris Bhatt MD [address] [place] [address] [place] [address] PCP - General 08/15/10 documented as of this encounter
--- OUTSIDE RECORDS SUMMARY | 2024-10-19 16:34 | XMS_ITS | Encounter Summary ---
Author Organization [facility] Address [address] [place] [address] Care Team Providers Care Perioperative Nurse Name Role Phone Chris Bhatt MD Primary Care Provider +1- [phone] Encounter Details Date Type Department Care Team (Late st Contact Info) Description 05/04/2015 Results Only [facility] [phone] David Penn MD [address] [place] [phone] Social History Tobacco Use Types Packs/Day [...] ? JANET FONTAINE ? Accession #: ? [id number] ? : ? 1980 (Age: 35) ??F [...] 1. 05/07/2015 9:38 AM End of Report [facility] 05/04/2015 18:4 4 EDT 05/04/2015 18:44 EDT us David Penn MD PATHOLOGY ORDERABLES Final Result [facility] [address] [place] [address] documented in this encounter Visit Diagnoses Not on filedocumented in this encounter Care Teams Perioperative Nurse Relationship Specialty Start Date End Date Chris Bhatt MD [address] [place] [address] [place] [address] PCP - General 08/15/10 documented as of this encounter
--- OUTSIDE RECORDS SUMMARY | 2024-10-19 16:34 | XMS_ITS | Encounter Summary ---
Author Organization [facility] Address [address] [place] [address] Care Team Providers Care Wellness Assistant Name Role Phone Chris Bhatt MD Primary Care Provider +1- [phone] Encounter Details Date Type Department Care Team (Late st Contact Info) Description 11/17/2023 Lab Requisition [facility] Pathology & Laboratory Medicine - [facility] [address] [place] [address] Outr Resulting Lab, Provider Social History Tobacco [...] Hold Hold 11/17/2023 19:01 EST [facility] Blood VENOUS BLOOD / Unknown 11/17/2023 8:20 EST 11/17/2023 18:00 EST us Provider Outr Resulting Lab LAB INFO SERVICE AND SUPPORT & PHONE RESULT Final Result Performing Organization Address City/[facility]/ZIP Co de Phone Number [facility] [address] [place] [address] * MEASLES IGG AB (11/17/2023 8:20 EST) Measles IgG Ab Positive See Note 11/18/2023 10:45 EST [facility] Comment:Presence of detectab le measles virus IgG antibodies. Blood VENOUS BLOOD / Unknown 11/17/2023 8:20 EST 11/17/2023 17:59 EST us Provider Outr Resulting Lab IMMUNOLOGY AND SEROL OGY ORDERABLES Final Result Performing Organization Address City/[facility]/ZIP Co de Phone Number [facility] [address] [place] [address] * VARICELLA IGG ANTIBODY (11/17/2023 8:20 EST) Varicella IgG Ab Positive See Note 11/18/2023 10:41 EST [facility] Comment:Presence of detectab le Varicella Zoster virus IgG antibodies. Blood VENOUS BLOOD / Unknown 11/17/2023 8:20 EST 11/17/2023 17:59 EST us Provider Outr Resulting Lab IMMUNOLOGY AND SEROL OGY ORDERABLES Final Result Performing Organization Address City/[facility]/ZIP Co de Phone Number [facility] [address] [place] [address] * MUMPS ANTIBODY IGG (11/17/2023 8:20 EST) Mumps Antibody IgG Positive See Note 11/18/2023 10:46 EST [facility] Comment:Presence of detectab le mumps virus IgG antibodies. Blood VENOUS BLOOD / Unknown 11/17/2023 8:20 EST 11/17/2023 17:59 EST us Provider Outr Resulting Lab IMMUNOLOGY AND SEROL OGY ORDERABLES Final Result Performing Organization Address City/[facility]/ZIP Co de Phone Number [facility] [address] [place] [address] * RUBELLA IGG ANTIBODY (11/17/2023 8:20 EST) Rubella IgG Ab Positive See Note 11/18/2023 10:48 EST [facility] Comment:Positive for IgG ant ibodies to Rubella virus. Blood VENOUS BLOOD / Unknown 11/17/2023 8:20 EST 11/17/2023 17:59 EST us Provider Outr Resulting Lab CHEMISTRY & BLOOD GA S ORDERABLES Final Result Performing Organization Address [facility] Co de Phone Number [facility] [address] [place] [address] documented in this encounter Visit Diagnoses Not on filedocumented in this encounter Care Teams Wellness Assistant Relationship Specialty Start Date End Date Chris Bhatt MD [address] [place] [address] [place] [address] PCP - General 08/15/10 documented as of this encounter
--- OUTSIDE RECORDS SUMMARY | 2024-10-19 16:34 | XMS_ITS | Encounter Summary ---
Author Organization [facility] Address [address] [place] [address] Care Team Providers Care Disk Sander Name Role Phone Unavailable Primary Care Provider Unavailabl e Encounter Details Date Type Department Care Team (Late st Contact Info) Description 02/12/2010 Results Only [facility] [phone] Ernesto Preston, ASHELY [address] [place] [address] [address] [place], [place] [phone] Social History Tobacco Use Types Packs/Day Years [...] 8 EDT 02/22/2010 10:08 EDT Ernesto Preston JEWELLERY DESIGNER MICROBIOLOGY - GENERAL ORDERABL ES Final Result [facility] [address] [place] [address] * CYTOPATHOLOGY (02/12/2010 0:00 EDT) Pathology Report: CYTOPATHOLOGY REPORT ? Reports generated via electronic interface contain original data; ? however they are lacking the format of the original report. ? Caution should be taken when reading/interpreti ng unformatted reports. ? Name: ? JANET FONTAINE ? Accession #: ? [id number] ? : ? 1980 (Age: 29) ??F ?Collect Date: ? 02/12/2010 ? Location: ? [facility] ? Receive Date: ? 02/14/2010 ? Provider: ?ERNESTO O PRESTON MANAGER DIALYSIS ? Copy to: ? Specimen/Source: ?Pap Test, [...] LEANN MAYORGA 02/12/2010 02/14/2010 us Ernesto Preston JEWELLERY DESIGNER PATHOLOGY ORDERABLES Final Resu lt [facility] [address] [place] [address] documented in this encounter Visit Diagnoses Not on filedocumented in this encounter
--- OUTSIDE RECORDS SUMMARY | 2024-10-19 16:34 | XMS_ITS | Clinical Summary ---
Author Organization [facility] Address [address] [place] [address] Care Team Providers Care Credentialing Assistant Name Role Phone Chris Bhatt MD Primary Care Provider +1- [phone] Allergies Active Allergy Reactions Criticality Noted Date [...] Vaccine (2023-25 season) 2024 [address] [place] [address] MEDICAID ACO [place] Care Teams Credentialing Assistant Relationship Specialty Start Date End Date Chris Bhatt MD [address] [place] [address] [place] [phone] PCP - General 08/15/10
--- OUTSIDE RECORDS SUMMARY | 2024-10-19 16:34 | XMS_ITS | Encounter Summary ---
Author Organization [facility] Address [address] [place] [address] Care Team Providers Care Massotherapist Name Role Phone Unavailable Primary Care Provider Unavailabl e Encounter Details Date Type Department Care Team (Late st Contact Info) Description 03/30/2007 13:42 EDT Hospital En[facility] [address] [place] [address] Geraldine Marroquin MD [address] [facility], [address] [place] [address] Social History Tobacco Use Types [...] Procedure Name Priority Date/Time Associated Diagnosis Comments [facility] BIOPHYSICAL PROFILE 03/30/2007 16:55 EDT documented in this encounter Results * [facility] BIOPHYSICAL PROFILE (03/30/2007 16:55 EDT) Anatomical Region Laterality Modality Other 03/30/2007 16:5 5 EDT Narrative 04/11/2009 11:27 EDT BPP/DOPPLER/GROWTH, WITH NST Please refer to the separate [facility] report. ??Contact Maternal Medicine. Procedure Note Phil Jc MD - 04/11/2009 BPP/DOPPLER/GROWTH, WITH NST Please refer to the separate [facility] report. Contact Maternal Medicine. us Ciera RICHTER IMG US [facility] ORDERABLES Fi nal Result documented in this encounter Visit Diagnoses Not on filedocumented in this encounter
--- OUTSIDE RECORDS SUMMARY | 2024-10-19 16:34 | XMS_ITS | Encounter Summary ---
Author Organization [facility] Address [address] [place] [address] Care Team Providers Care Loan Clerk Name Role Phone Chris Bhatt MD Primary Care Provider +1- [phone] Encounter Details Date Type Department Care Team (Late st Contact Info) Description 03/04/2018 Results Only [facility] [phone] Hanna Esqueda MD [address] [place] [phone] Social History Tobacco Use Types Packs/Day [...] ? JANET POWELL ? Accession #: ? [id number] ? : ? 1980 (Age: 37) ??F ? Collect Date: ? 03/04/2018 ? Location: ? [facility] ? Receive Date: ? 03/04/2018 ? Provider: HANNA ESQUEDA MD Copy to: PATRICK TOMAS FILM OR VIDEOTAPE EDITOR ? Final Pathologic Diagnosis: A. FALLOPIAN TUBE, [...] surface. Sectioning reveals a patent, unremarkable lumen. Kitchen Utility Associate sections, to include the trisected fimbria, are submitted in A1 and A2. B. ?Received in formalin labelled with proper patient identification (initials A, S) and R fallopian tube is a 6.0 cm in length x 0.5 cm in diameter fimbriated fallopian tube. The serosa is dusky purple-steele. Sectioning reveals a patent, unremarkable lumen. Kitchen Utility Associate sections, to include the bisected fimbria, are [...] (ASCP) 03/05/2018 8:50 AM End of Report [facility] 03/04/2018 21:2 8 EDT 03/04/2018 21:28 EDT us Hanna Esqueda MD PATHOLOGY ORDERABLES Final R esult [facility] [address] [place] [address] documented in this encounter Visit Diagnoses Not on filedocumented in this encounter Care Teams Loan Clerk Relationship Specialty Start Date End Date Chris Bhatt MD [address] [place] [phone] PCP - General 08/15/10 documented as of this encounter
--- OUTSIDE RECORDS SUMMARY | 2024-10-19 16:34 | XMS_ITS | Encounter Summary ---
Author Organization [facility] Address [address] [place] [address] Care Team Providers Care Barmaid Name Role Phone Unavailable Primary Care Provider Unavailabl e Encounter Details Date Type Department Care Team (Late st Contact Info) Description 05/02/2008 Office Visit [facility] [address] [place] [address] Alexa Mckeon PA Social History Tobacco Use [...] reviewed by the Emergency Department physician certified physician assistant. Continue taking the following medications: (depression [...] referrals. Patient verbalized understanding. Written instructions providedin Belarusian. The patient was discharged (staying on B5 [...]
--- OUTSIDE RECORDS SUMMARY | 2024-10-19 16:34 | XMS_ITS | Encounter Summary ---
Author Organization [facility] Address [address] [place] [address] Care Team Providers Care Work Ticket Distributor Name Role Phone Chris Steiner MD Primary Care Provider +1- [phone] Reason for Visit * Reason Comments Asthma Pts son is admitted upstairs, pt did not bring her inhaler from home, awoke tonight with asthma exacerbation. + insp/exp wheezing. Encounter Details Date Type Department Care Team (Late st Contact Info) Description 08/15/2010 2:48 EDT - 08/15/2010 5:00 EDT Emergency [facility] Emergency Department - [address] [address] Allison Jo MD [address] [place] [address], [address] [place] [address] Emergency, MD Kamron Asthma with [...] from the original note were not included. [facility] Patient Instructions Asthma Attack: After [...] Where can you learn more? Go to [email or web address] Enter B821 in the search box to learn more about Asthma Attack: After Your Visit to the Emergency Room. ?? 2005 - 2008 [employer]. Care instructions adapted under license by [facility], [facility] . This care instruction is for use with your licensed healthcare professional. If you have questions about a medical condition or this instruction, always ask your healthcare professional. [employer] disclaims any warranty or liability for your [...] RN) documented in this encounter Care Teams Work Ticket Distributor Relationship Specialty Start Date End Date Chris Steiner MD [address] [place] [address] [place] [phone] PCP - General 08/15/10 documented as of this encounter
--- OUTSIDE RECORDS SUMMARY | 2024-10-19 16:34 | XMS_ITS | Encounter Summary ---
Author Organization [facility] Address [address] [place] [address] Care Team Providers Care Archives Technician Name Role Phone Chris Bhatt MD Primary Care Provider +1- [phone] Encounter Details Date Type Department Care Team (Late st Contact Info) Description 07/22/2019 Results Only [facility] [phone] Cooper Gonzalez, DNP [address] [place] [phone] Social History Tobacco Use Types Packs/Day Years [...] ? JANET FONTAINE ? Accession #: ? [id number] ? : ? 1980 (Age: 39) ??F [...] Z11.51 FAX - Request for Fax report: [phone] Specimen/Source: ??Pap Test, Cervix, ThinPrep Imaging System [...] types 16,18,31,33,35, 39,45,51,52,56,58, 59,66, and 68 by apprise counselor mediated amplification. Comments Document reviewed and electronically signed by: ? System Interface ? Report date: 07/28/2019 By the signature above, the attending physician certifies that he/she has personally conducted a gross and/or microscopic examination of the described specimens and rendered or confirmed the above diagnosis. End of Report [facility] 07/22/2019 07/25/2019 us Cooepr Youngblood DNP PATHOLOGY ORDERABLES Tisha hines Result [facility] [address] [place] [address] documented in this encounter Visit Diagnoses Not on filedocumented in this encounter Care Teams Archives Technician Relationship Specialty Start Date End Date Chris Bhatt MD [address] [place] [address] [place] [phone] PCP - General 08/15/10 documented as of this encounter
--- OUTSIDE RECORDS SUMMARY | 2024-10-19 16:34 | XMS_ITS | Encounter Summary ---
Author Organization [facility] Address [address] [place] [address] Care Team Providers Care Public Health Analyst Name Role Phone Chris Bhatt MD Primary Care Provider +1- [phone] Encounter Details Date Type Department Care Team (Latest Contact Info) Description 03/04/2018 12:07 EDT - 03/04/2018 23:59 EDT Hospital Encounter [address] [address] Unknown, Provider, MD Discharge Disposition: Home or [...] Code Departure Means Destination Home or Self [facility] documented in this encounter Plan of Treatment Not on file documented as of this encounter Visit Diagnoses Not on filedocumented in this encounter Care Teams Public Health Analyst Relationship Specialty Start Date End Date Chris Bhatt MD [address] [place] [address] [place] [phone] PCP - General 08/15/10 documented as of this encounter
--- OUTSIDE RECORDS SUMMARY | 2024-10-19 16:34 | XMS_ITS | Encounter Summary ---
Author Organization [facility] Address [address] [place] [address] Care Team Providers Care Patient Registration Clerk Name Role Phone Unavailable Primary Care Provider Unavailabl e Encounter Details Date Type Department Care Team (Latest Contact Info) Description 05/02/2008 20:36 EDT - 05/03/2008 11:59 EDT Hospital Encounter [facility] Emergency Department - [facility] [address] [place], [place] [address] Emergency, Default, MD Discharge Disposition: Home or [...]
--- OUTSIDE RECORDS SUMMARY | 2024-10-19 16:34 | XMS_ITS | Encounter Summary ---
Author Organization [facility] Address [address] [place] [address] Care Team Providers Care Security Officers And Guards Name Role Phone Chris Bhatt MD Primary Care Provider [phone]- [phone] Encounter Details Date Type Department Care Team (Late st Contact Info) Description 11/17/2023 Lab Requisition [facility] Pathology & Laboratory Medicine - [facility] [address] [place] [address] Outr Resulting Lab, Provider Social History Tobacco [...] 8:20 EST) Hold Hold 11/17/2023 19:01 EST [facility] Blood VENOUS BLOOD / Unknown 11/17/2023 8:20 EST 11/17/2023 18:00 EST us Provider Outr Resulting Lab LAB INFO SERVICE AND SUPPORT & PHONE RESULT Final Result Performing Organization Address [facility] de Phone Number [facility] [address] [place] [address] * HEPATITIS B SURFACE ANTIBODY (11/17/2023 8:20 EST) Pathologist [facility] Hep B Surface Ab, Quantitative >1,000.0 See Note mIU/mL 11/17/2023 19:16 [facility] Comment: Reference Range for Hep B Surface Ab, Quant: Positive: >= 10.0 mIU/mL Negative: ??< 10.0 mIU/mL Patient is presumed to be immune to infection with Hepatitis B Virus. Hep B Surface Ab, Qualitative Positive See Note 11/17/2023 19:16 [facility] Comment: Reference Range for Hep B Surface Ab, Qual: Unvaccinated: ??Negative Vaccinated: ??Positive Blood VENOUS BLOOD / Unknown 11/17/2023 8:20 EST 11/17/2023 17:59 EST us Provider Outr Resulting Lab CHEMISTRY & BLOOD GA S ORDERABLES Final Result Performing Organization Address [facility] Co de Phone Number [facility] [address] [place] [address] * HEPATITIS B CORE ANTIBODY (TOTAL) (11/17/2023 8:20 EST) Pathologist [facility] Hepatitis B Core Ab, Total Negative Negative 11/17/2023 21:36 EST [facility] Blood VENOUS BLOOD / Unknown 11/17/2023 8:20 EST 11/17/2023 17:59 EST us Provider Outr Resulting Lab CHEMISTRY & BLOOD GA S ORDERABLES Final Result Performing Organization Address City/[facility]/ZIP Co de Phone Number [facility] [address] [place] [address] * HEPATITIS B SURFACE ANTIGEN (11/17/2023 8:20 EST) Hep B Surface Ag Negative Negative 11/17/2023 21:06 EST [facility] Blood VENOUS BLOOD / Unknown 11/17/2023 8:20 EST 11/17/2023 17:59 EST us Provider Outr Resulting Lab CHEMISTRY & BLOOD GA S ORDERABLES Final Result Performing Organization Address City/[facility] Co de Phone Number [facility] [address] [place] [address] documented in this encounter Visit Diagnoses Not on filedocumented in this encounter Care Teams Security Officers And Guards Relationship Specialty Start Date End Date Chris Bhatt MD [address] [place] [address] [place] [id number] PCP - General 08/15/10 documented as of this encounter
--- OUTSIDE RECORDS SUMMARY | 2024-10-19 16:35 | XMS_ITS | Encounter Summary ---
Author Organization [facility] Address [address] [place] [address] Care Team Providers Care Deputy Controller Name Role Phone Unavailable Primary Care Provider Unavailabl e Encounter Details Date Type Department Care Team (Late st Contact Info) Description 09/11/2006 Results Only [facility] [place] [facility] [address] [place] [address] Kevin Mason, [address] [id number] Social History Tobacco Use Types Packs/Day Years [...] ? JANET FONTAINE ? Accession #: ? [id number] : ? 1980 (Age: 26) ??F ?Collect Date: ? 09/11/2006 Location: ? [facility] ? Receive Date: ? 09/14/2006 Provider: ?KEVIN RICHTERM Copy to: ? Specimen/Source: ?ThinPrep Pap Test, Cervix/Endocervix, processed on [employer] ThinPrep Imaging System, with manual evaluation Last [...] End of Report LEANN MAYORGA 09/11/2006 09/14/2006 us Kevin Mason CNM PATHOLOGY ORDERABLES Fin al Result LEANN MAYORGA [address] [place] [address] documented in this encounter Visit Diagnoses Not on filedocumented in this encounter
--- OUTSIDE RECORDS SUMMARY | 2024-10-19 16:35 | XMS_ITS | Encounter Summary ---
Author Organization [facility] Address [address] [place] [address] Care Team Providers Care Marine Firer Name Role Phone Unavailable Primary Care Provider Unavailabl e Encounter Details Date Type Department Care Team (Late st Contact Info) Description 01/11/2003 Results Only [facility] [place] [facility] [address] [place] [address] [address] [place], [place] [id number] Social History Tobacco Use Types Packs/Day Years [...] ? JANET FONTAINE ? Accession #: ? [id number] : ? 1980 (Age: 22) ??F ?Collect [...] ORDERABLES Final Res ult LEANN MAYORGA [address] [place] [address] documented in this encounter Visit Diagnoses Not on filedocumented in this encounter
--- OUTSIDE RECORDS SUMMARY | 2024-10-19 16:35 | XMS_ITS | Encounter Summary ---
Author Organization [facility] Address [address] [place] [address] Care Team Providers Care Renal Dialysis Technician Name Role Phone Unavailable Primary Care Provider Unavailabl e Encounter Details Date Type Department Care Team (Late st Contact Info) Description 01/06/[address] [facility] [place] [facility] [address] [place] [address], [place] [address] Social History Tobacco Use Types Packs/Day Years [...] ? JANET FONTAINE ? Accession #: ? [id number] : ? 1980 (Age: 21) ??F ?Collect [...] ORDERABLES Final Res ult LEANN MAYORGA [address] [place] [address] documented in this encounter Visit Diagnoses Not on filedocumented in this encounter
--- OUTSIDE RECORDS SUMMARY | 2024-10-19 16:35 | XMS_ITS | Encounter Summary ---
Author Organization [facility] Address [address] [place] [address] Care Team Providers Care Accounting Intern Name Role Phone Unavailable Primary Care Provider Unavailabl e Encounter Details Date Type Department Care Team (Late st Contact Info) Description 03/19/2001 Results Only [facility] [place] [facility] [address] [place] [address] Bhavana Mendoza CNM [address] [id number] Social History Tobacco Use Types Packs/Day Years [...] ? JANET FONTAINE ? Accession #: ? [id number] : ? 1980 (Age: 20) ??F ?Collect [...] CNM PATHOLOGY ORDERABLES Edited LEANN MAYORGA [address] [place] [address] documented in this encounter Visit Diagnoses Not on filedocumented in this encounter
== END 2024-10-19 16:33 | disposition home or self-care (01) ==
LOC: NCHCN 16:32
PROVIDERS: PCP Physician Assistant; Visit Provider Physician Assistant
DX: Z11.51 Encounter for screening for human papillomavirus (HPV) (principal); Z01.419 Encounter for gynecological examination (general) (routine) without abnormal findings
CPT/HCPCS: 88142; 87624

== ENCOUNTER 2024-12-15 12:31 | Outpatient (CLI) | payer MEDICAID, SELFPAY ==
--- NOTE | 2024-12-15 | DI.US_ITS ---
Exam(s) US LOWER EXTREMITY VENOUS LT EXAM: US LOWER EXTREMITY VENOUS LT CLINICAL HISTORY: PAIN LT CALF, M79.662 TECHNIQUE: Grayscale, color, and doppler imaging of the deep venous system of the left lower extremi ty was performed. COMPARISON: US US BREAST LT COMPLETE from 11/10/2023 FINDINGS: There is no evidence of intraluminal thrombus and there is normal compression and augmentation demons trated within the common femoral vein, femoral vein, and popliteal vein. In the ipsilateral calf the interrogated veins also exhibit normal compression/ augmentation properti es. The ipsilateral saphenofemoral junction is patent. IMPRESSION: 1. No evidence of DVT in the left lower extremity. DATA REPOSITORY:
== END 2024-12-15 12:51 ==
LOC: DI 12:31
PROVIDERS: PCP Physician Assistant; Visit Provider Physician Assistant Medical
DX: M79.662 Pain in left lower leg (principal)
CPT/HCPCS: 93971

== ENCOUNTER 2025-05-12 09:00 | Outpatient (CLI) | payer MEDICAID, SELFPAY ==
[2025-05-12 09:06] LABS: Hemoglobin A1C 5.0 % (<5.7)
[2025-05-12 09:24] LABS: Calculated LDL 71 mg/dL (<100); Cholesterol 161 mg/dL (<200); HDL Cholesterol 81 mg/dL (>or=50); Triglyceride 46 mg/dL (<150)
== END 2025-05-12 09:01 | disposition home or self-care (01) ==
LOC: LBO 09:00
PROVIDERS: PCP Physician Assistant; Visit Provider Nurse Practitioner Psychiatric/Mental Health
DX: Z79.899 Other long term (current) drug therapy (principal)
CPT/HCPCS: 36415; 80061; 83036